=== PATIENT | male | born 1945 | race Caucasian/White ===

== ENCOUNTER 2020-03-25 11:57 | Outpatient (REF) | payer OTHER, SELFPAY ==
[2020-03-25 12:54] LABS: Hematocrit 38.4 % (42-52); Mean Corpuscular HGB Conc 31.3 g/dl (31.0-36.0); Mean Corpuscular Hemoglobin 30.6 pg (27.0-33.0); Mean Platelet Volume 9.8 fL (9.4-12.4); Platelet Count 180 X10*3/uL (160-400); Red Blood Count 3.92 X10*6/uL (4.60-5.80); Red Cell Distribution Width 12.4 % (11.0-16.0); White Blood Count 8.7 X10*3/uL (4.8-10.8)
[2020-03-25 13:32] LABS: Alanine Aminotransferase 30 U/L (0-40); Albumin Level 4.1 g/dL (3.5-5.0); Alkaline Phosphatase 64 U/L (39-117); Anion Gap 12 (12-20); Aspartate Amino Transferase 27 U/L (5-37); Bilirubin Total 0.4 mg/dL (0.0-1.0); Blood Urea Nitrogen 59 mg/dL (9-16); Calcium 9.3 mg/dL (8.4-10.2); Carbon Dioxide 24 mmol/L (22-29); Chloride 111 mmol/L (96-108); Estimated Glomerular Filt Rate 33; Glucose Random 90 mg/dL (60-115); Potassium 4.9 mmol/l (3.3-5.1); Sodium 142 mmol/L (135-145); Total Protein 7.1 g/dL (6.5-8.0)
== END 2020-03-25 11:58 | disposition home or self-care (01) ==
LOC: HO.MANLR 11:57
PROVIDERS: PCP Internal Medicine; Referring Provider Urology; Visit Provider Internal Medicine
DX: D49.4 Neoplasm of unspecified behavior of bladder (principal)
CPT/HCPCS: 36415; 80053; 85027

== ENCOUNTER 2020-04-08 11:09 | Outpatient (REF) | payer OTHER, SELFPAY ==
[2020-04-08 12:57] LABS: Hematocrit 39.2 % (42-52); Hemoglobin 12.7 g/dl (14.0-18.0); Mean Corpuscular HGB Conc 32.4 g/dl (31.0-36.0); Mean Corpuscular Hemoglobin 31.6 pg (27.0-33.0); Mean Corpuscular Volume 97.5 fL (80-98); Mean Platelet Volume 10.2 fL (9.4-12.4); Platelet Count 153 X10*3/uL (160-400); Red Blood Count 4.02 X10*6/uL (4.60-5.80); Red Cell Distribution Width 13.2 % (11.0-16.0)
[2020-04-08 13:05] LABS: Estimated Average Glucose 160 mg/dL; Hemoglobin A1c % 7.2 %
[2020-04-08 13:57] LABS: Creatinine Urine 38.53 mg/dL; Microalbum/Creatinine Ratio Ur 389.3 ug/mg cr
[2020-04-08 14:02] LABS: Alanine Aminotransferase 27 U/L (0-40); Albumin Level 4.2 g/dL (3.5-5.0); Anion Gap 10 (12-20); Aspartate Amino Transferase 21 U/L (5-37); Bilirubin Total 0.5 mg/dL (0.0-1.0); Blood Urea Nitrogen 57 mg/dL (9-16); Calcium 8.8 mg/dL (8.4-10.2); Carbon Dioxide 22 mmol/L (22-29); Chloride 114 mmol/L (96-108); Estimated Glomerular Filt Rate 34; Glucose Fasting 195 mg/dL (60-99); Potassium 4.4 mmol/l (3.3-5.1); Sodium 142 mmol/L (135-145); Triglycerides 231 mg/dL
[2020-04-08 14:03] LABS: Alkaline Phosphatase 71 U/L (39-117); Cholesterol 134 mg/dL; HDL Cholesterol 40 mg/dL; LDL Cholesterol Calculated 48 mg/dl
== END 2020-04-08 11:10 | disposition home or self-care (01) ==
LOC: HO.MANLR 11:09
PROVIDERS: PCP Internal Medicine; Referring Provider Urology; Visit Provider Internal Medicine
DX: E11.65 Type 2 diabetes mellitus with hyperglycemia (principal); D49.4 Neoplasm of unspecified behavior of bladder
CPT/HCPCS: 36415; 80053; 80061; 82043; 83036; 85027

== ENCOUNTER 2020-07-03 14:23 | Outpatient (REF) | payer OTHER, SELFPAY ==
[2020-07-03 17:39] LABS: Hematocrit 41.9 % (42-52); Hemoglobin 13.7 g/dl (14.0-18.0); Mean Corpuscular HGB Conc 32.7 g/dl (31.0-36.0); Mean Corpuscular Hemoglobin 31.8 pg (27.0-33.0); Mean Corpuscular Volume 97.2 fL (80-98); Mean Platelet Volume 11.3 fL (9.4-12.4); Platelet Count 135 X10*3/uL (160-400); Red Blood Count 4.31 X10*6/uL (4.60-5.80); Red Cell Distribution Width 12.4 % (11.0-16.0); White Blood Count 6.5 X10*3/uL (4.8-10.8)
[2020-07-03 18:28] LABS: Alanine Aminotransferase 25 U/L (0-40); Albumin Level 3.9 g/dL (3.5-5.0); Alkaline Phosphatase 78 U/L (39-117); Anion Gap 13 (12-20); Aspartate Amino Transferase 18 U/L (5-37); Bilirubin Total 0.5 mg/dL (0.0-1.0); Blood Urea Nitrogen 57 mg/dL (9-16); Calcium 8.5 mg/dL (8.4-10.2); Carbon Dioxide 22 mmol/L (22-29); Chloride 107 mmol/L (96-108); Estimated Glomerular Filt Rate 29; Glucose Random 368 mg/dL (60-115); Potassium 4.8 mmol/L (3.3-5.1); Sodium 137 mmol/L (135-145); Total Protein 6.5 g/dL (6.5-8.0)
== END 2020-07-03 14:24 | disposition home or self-care (01) ==
LOC: HO.MANLDS 14:23
PROVIDERS: PCP Internal Medicine; Visit Provider Internal Medicine
DX: D49.4 Neoplasm of unspecified behavior of bladder (principal)
CPT/HCPCS: 36415; 80053; 85027

== ENCOUNTER 2020-07-10 14:48 | Outpatient (REF) | payer OTHER, SELFPAY ==
[2020-07-10 18:18] LABS: Estimated Average Glucose 160 mg/dL; Hemoglobin A1c % 7.2 %
[2020-07-10 18:40] LABS: Creatinine Urine 38.06 mg/dL; Microalbum/Creatinine Ratio Ur 81.4 ug/mg cr
== END 2020-07-10 14:49 | disposition home or self-care (01) ==
LOC: HO.MANLDS 14:48
PROVIDERS: PCP Internal Medicine; Visit Provider Internal Medicine
DX: E11.65 Type 2 diabetes mellitus with hyperglycemia (principal)
CPT/HCPCS: 36415; 82043; 83036

== ENCOUNTER 2020-11-27 08:07 | Outpatient (REF) | payer OTHER, SELFPAY ==
[2020-11-27 11:34] LABS: Creatinine Urine 50.11 mg/dL; Microalbum/Creatinine Ratio Ur 181.6 ug/mg cr
[2020-11-27 11:35] LABS: Alanine Aminotransferase 23 U/L (0-40); Alkaline Phosphatase 76 U/L (39-117); Anion Gap 11 (12-20); Aspartate Amino Transferase 19 U/L (5-37); Bilirubin Total 0.7 mg/dL (0.0-1.0); Blood Urea Nitrogen 42 mg/dL (9-16); Calcium 8.9 mg/dL (8.4-10.2); Carbon Dioxide 23 mmol/L (22-29); Chloride 113 mmol/L (96-108); Cholesterol 125 mg/dL; Estimated Glomerular Filt Rate 31; Glucose Fasting 178 mg/dL (60-99); HDL Cholesterol 27 mg/dL; LDL Cholesterol Calculated 44 mg/dl; Potassium 4.3 mmol/L (3.3-5.1); Sodium 143 mmol/L (135-145); Total Protein 6.3 g/dL (6.5-8.0); Triglycerides 273 mg/dL
[2020-11-27 11:59] LABS: Estimated Average Glucose 143 mg/dL; Hemoglobin A1c % 6.6 %
== END 2020-11-27 08:08 | disposition home or self-care (01) ==
LOC: HO.MANLDS 08:07
PROVIDERS: PCP Internal Medicine; Visit Provider Internal Medicine
DX: E11.65 Type 2 diabetes mellitus with hyperglycemia (principal)
CPT/HCPCS: 36415; 80053; 80061; 82043; 83036

== ENCOUNTER 2021-03-03 09:14 | Outpatient (REF) | payer OTHER, SELFPAY ==
[2021-03-03 11:32] LABS: Estimated Average Glucose 166 mg/dL; Hemoglobin A1c % 7.4 %
== END 2021-03-03 09:15 | disposition home or self-care (01) ==
LOC: HO.MANLDS 09:14
PROVIDERS: PCP Internal Medicine; Visit Provider Internal Medicine
DX: E11.65 Type 2 diabetes mellitus with hyperglycemia (principal)
CPT/HCPCS: 36415; 83036

== ENCOUNTER 2021-06-13 14:02 | Outpatient (REF) | payer OTHER, SELFPAY ==
[2021-06-14 07:30] LABS: Estimated Average Glucose 157 mg/dL; Hemoglobin A1c % 7.1 %
== END 2021-06-13 14:03 | disposition home or self-care (01) ==
LOC: HO.MANLDS 14:02
PROVIDERS: PCP Internal Medicine; Visit Provider Internal Medicine
DX: E11.65 Type 2 diabetes mellitus with hyperglycemia (principal)
CPT/HCPCS: 36415; 83036

== ENCOUNTER 2021-11-24 09:44 | Outpatient (REF) | payer OTHER, SELFPAY ==
[2021-11-24 11:15] LABS: Estimated Average Glucose 148 mg/dL; Hemoglobin A1c % 6.8 %
[2021-11-24 12:11] LABS: Alanine Aminotransferase 30 U/L (0-40); Alkaline Phosphatase 74 U/L (39-117); Anion Gap 13 (12-20); Aspartate Amino Transferase 24 U/L (5-37); Bilirubin Total 0.6 mg/dL (0.0-1.0); Blood Urea Nitrogen 53 mg/dL (9-16); Carbon Dioxide 21 mmol/L (22-29); Chloride 113 mmol/L (96-108); Cholesterol 130 mg/dL; Estimated Glomerular Filt Rate 27; Glucose Random 190 mg/dL (60-115); HDL Cholesterol 30 mg/dL; LDL Cholesterol Calculated 40 mg/dl; Potassium 5.1 mmol/L (3.3-5.1); Sodium 142 mmol/L (135-145); Total Protein 6.4 g/dL (6.5-8.0); Triglycerides 300 mg/dL
[2021-11-24 12:25] LABS: Microalbum/Creatinine Ratio Ur 124.4 ug/mg cr
== END 2021-11-24 09:45 | disposition home or self-care (01) ==
LOC: HO.MANLDS 09:44
PROVIDERS: Visit Provider Internal Medicine
DX: E11.65 Type 2 diabetes mellitus with hyperglycemia (principal)
CPT/HCPCS: 36415; 80053; 80061; 82043; 83036

== ENCOUNTER 2022-02-18 11:40 | Outpatient (REF) | payer OTHER, SELFPAY ==
[2022-02-18 16:09] LABS: Estimated Average Glucose 177 mg/dL; Hemoglobin A1c % 7.8 %
== END 2022-02-18 11:41 | disposition home or self-care (01) ==
LOC: HO.MANLDS 11:40
PROVIDERS: Visit Provider Internal Medicine
DX: E11.65 Type 2 diabetes mellitus with hyperglycemia (principal)
CPT/HCPCS: 36415; 83036

== ENCOUNTER 2022-08-03 09:50 | Outpatient (REF) | payer OTHER, SELFPAY ==
[2022-08-03 12:24] LABS: Creatinine Urine 60.96 mg/dL; Microalbum/Creatinine Ratio Ur 111.5 ug/mg cr
[2022-08-03 12:34] LABS: Alanine Aminotransferase 20 U/L (0-40); Albumin Level 3.8 g/dL (3.5-5.0); Alkaline Phosphatase 53 U/L (39-117); Anion Gap 11 (12-20); Aspartate Amino Transferase 20 U/L (5-37); Bilirubin Total 0.6 mg/dL (0.0-1.0); Blood Urea Nitrogen 49 mg/dL (9-16); Carbon Dioxide 22 mmol/L (22-29); Chloride 112 mmol/L (96-108); Cholesterol 240 mg/dL; Estimated Glomerular Filt Rate 30; Glucose Fasting 233 mg/dL (60-99); HDL Cholesterol 31 mg/dL; Potassium 4.4 mmol/L (3.3-5.1); Sodium 141 mmol/L (135-145); Total Protein 6.1 g/dL (6.5-8.0); Triglycerides 495 mg/dL
[2022-08-03 12:46] LABS: Estimated Average Glucose 180 mg/dL; Hemoglobin A1c % 7.9 %
== END 2022-08-03 09:51 | disposition home or self-care (01) ==
LOC: HO.MANLDS 09:50
PROVIDERS: Visit Provider Internal Medicine
DX: E11.65 Type 2 diabetes mellitus with hyperglycemia (principal)
CPT/HCPCS: 36415; 80053; 80061; 82043; 83036

== ENCOUNTER 2023-02-01 11:11 | Outpatient (REF) | payer MEDICARE, SELFPAY ==
[2023-02-01 13:32] LABS: Estimated Average Glucose 163 mg/dL; Hemoglobin A1c % 7.3 % (<6.0)
[2023-02-01 13:58] LABS: Alanine Aminotransferase 51 U/L (0-40); Albumin Level 3.9 g/dL (3.5-5.0); Alkaline Phosphatase 54 U/L (39-117); Anion Gap 14 (12-20); Aspartate Amino Transferase 33 U/L (5-37); Bilirubin Total 0.6 mg/dL (0.0-1.0); Blood Urea Nitrogen 50 mg/dL (9-16); Calcium 8.8 mg/dL (8.4-10.2); Carbon Dioxide 17 mmol/L (22-29); Chloride 112 mmol/L (96-108); Cholesterol 119 mg/dL (<200); Estimated Glomerular Filt Rate 28; Glucose Random 272 mg/dL (60-115); HDL Cholesterol 24 mg/dL (>40); LDL Cholesterol Calculated 42 mg/dL (<100); Potassium 4.4 mmol/L (3.3-5.1); Sodium 139 mmol/L (135-145); Total Protein 6.7 g/dL (6.5-8.0); Triglycerides 269 mg/dL (<150)
== END 2023-02-01 11:12 | disposition home or self-care (01) ==
LOC: HO.MANLDS 11:11
PROVIDERS: Visit Provider Internal Medicine
DX: E11.65 Type 2 diabetes mellitus with hyperglycemia (principal)
CPT/HCPCS: 36415; 80053; 80061; 83036

== ENCOUNTER 2023-05-04 11:01 | Outpatient (REF) | payer MEDICARE, SELFPAY ==
[2023-05-04 14:52] LABS: MANUAL DIFF FLAG NO
[2023-05-04 15:04] LABS: Basophils Absolute Auto 0.1 X10*3/uL (0.0-0.2); Eosinophils Absolute Auto 0.1 X10*3/uL (0.0-0.4); Eosinophils Percent Auto 1.5 % (0-4); Hematocrit 45.1 % (42.0-52.0); Hemoglobin 14.4 g/dl (14.0-18.0); Imm Gran Abs Auto 0.09 X10*3/uL (0.00-0.03); Imm Gran Pct Auto 1.3 % (0.0-0.4); Lymphocytes Absolute Auto 1.5 X10*3/uL (1.2-4.9); Lymphocytes Percent Auto 21.5 % (20-40); Mean Corpuscular HGB Conc 31.9 g/dl (31.0-36.0); Mean Corpuscular Hemoglobin 31.6 pg (27.0-33.0); Mean Corpuscular Volume 98.9 fL (80.0-98.0); Mean Platelet Volume 10.1 fL (9.4-12.4); Monocytes Absolute Auto 0.9 X10*3/uL (0.1-1.2); Monocytes Percent Auto 12.9 % (2-11); Neutrophils Absolute Auto 4.2 x10*3/uL (2.0-8.3); Neutrophils Percent Auto 61.8 % (45-73); Platelet Count 130 X10*3/uL (160-400); Red Blood Count 4.56 X10*6/uL (4.60-5.80); Red Cell Distribution Width 12.3 % (11.0-16.0); White Blood Count 6.7 X10*3/uL (4.8-10.8)
[2023-05-04 15:18] LABS: Estimated Average Glucose 160 mg/dL; Hemoglobin A1c % 7.2 % (<6.0)
[2023-05-04 15:22] LABS: Alanine Aminotransferase 28 U/L (0-40); Albumin Level 3.7 g/dL (3.5-5.0); Alkaline Phosphatase 56 U/L (39-117); Anion Gap 12 (12-20); Aspartate Amino Transferase 23 U/L (5-37); Bilirubin Total 0.6 mg/dL (0.0-1.0); Blood Urea Nitrogen 47 mg/dL (9-16); Calcium 9.7 mg/dL (8.4-10.2); Carbon Dioxide 23 mmol/L (22-29); Chloride 108 mmol/L (96-108); Cholesterol 144 mg/dL (<200); Estimated Glomerular Filt Rate 28; Glucose Random 266 mg/dL (60-115); HDL Cholesterol 28 mg/dL (>40); LDL Cholesterol Calculated 51 mg/dL (<100); Potassium 4.4 mmol/L (3.3-5.1); Sodium 139 mmol/L (135-145); Total Protein 6.4 g/dL (6.5-8.0); Triglycerides 325 mg/dL (<150)
[2023-05-04 15:50] LABS: Creatinine Urine 49.69 mg/dL; Microalbum/Creatinine Ratio Ur 154.9 ug/mg cr (<30)
== END 2023-05-04 11:02 | disposition home or self-care (01) ==
LOC: HO.MANLDS 11:01
PROVIDERS: Visit Provider Internal Medicine
DX: E11.65 Type 2 diabetes mellitus with hyperglycemia (principal)
CPT/HCPCS: 36415; 80053; 80061; 82043; 82570; 83036; 85025

== ENCOUNTER 2023-08-03 11:36 | Outpatient (REF) | payer MEDICARE, SELFPAY ==
[2023-08-03 14:26] LABS: Alanine Aminotransferase 29 U/L (0-40); Albumin Level 3.8 g/dL (3.5-5.0); Alkaline Phosphatase 54 U/L (39-117); Anion Gap 13 (12-20); Aspartate Amino Transferase 20 U/L (5-37); Bilirubin Total 0.5 mg/dL (0.0-1.0); Blood Urea Nitrogen 62 mg/dL (9-16); Calcium 8.9 mg/dL (8.4-10.2); Carbon Dioxide 19 mmol/L (22-29); Chloride 111 mmol/L (96-108); Estimated Glomerular Filt Rate 28; Glucose Random 319 mg/dL (60-115); Potassium 4.4 mmol/L (3.3-5.1); Sodium 139 mmol/L (135-145); Total Protein 6.4 g/dL (6.5-8.0)
[2023-08-03 15:10] LABS: Estimated Average Glucose 177 mg/dL; Hemoglobin A1c % 7.8 % (<6.0)
== END 2023-08-03 11:37 | disposition home or self-care (01) ==
LOC: HO.MANLDS 11:36
PROVIDERS: Visit Provider Internal Medicine
DX: E11.65 Type 2 diabetes mellitus with hyperglycemia (principal)
CPT/HCPCS: 36415; 80053; 83036

== ENCOUNTER 2023-11-15 10:39 | Outpatient (REF) | payer MEDICARE, SELFPAY ==
[2023-11-15 13:45] LABS: Estimated Average Glucose 160 mg/dL; Hemoglobin A1c % 7.2 % (<6.0)
== END 2023-11-15 10:40 | disposition home or self-care (01) ==
LOC: HO.MANLDS 10:39
PROVIDERS: Visit Provider Internal Medicine
DX: E11.65 Type 2 diabetes mellitus with hyperglycemia (principal)
CPT/HCPCS: 36415; 83036

== ENCOUNTER 2024-02-29 14:17 | Outpatient (REF) | payer MEDICARE, SELFPAY ==
[2024-02-29 14:25] LABS: MANUAL DIFF FLAG NO
[2024-02-29 14:54] LABS: Basophils Absolute Auto 0.1 X10*3/uL (0.0-0.2); Eosinophils Absolute Auto 0.1 X10*3/uL (0.0-0.4); Eosinophils Percent Auto 1.5 % (0-4); Hematocrit 44.1 % (42.0-52.0); Hemoglobin 14.5 g/dl (14.0-18.0); Imm Gran Abs Auto 0.12 X10*3/uL (0.00-0.03); Imm Gran Pct Auto 1.3 % (0.0-0.4); Lymphocytes Absolute Auto 1.7 X10*3/uL (1.2-4.9); Lymphocytes Percent Auto 19.1 % (20-40); Mean Corpuscular HGB Conc 32.9 g/dl (31.0-36.0); Mean Corpuscular Hemoglobin 31.9 pg (27.0-33.0); Mean Corpuscular Volume 97.1 fL (80.0-98.0); Mean Platelet Volume 9.9 fL (9.4-12.4); Monocytes Absolute Auto 0.9 X10*3/uL (0.1-1.2); Monocytes Percent Auto 9.7 % (2-11); Neutrophils Percent Auto 67.4 % (45-73); Platelet Count 140 X10*3/uL (160-400); Red Blood Count 4.54 X10*6/uL (4.60-5.80); Red Cell Distribution Width 12.2 % (11.0-16.0); White Blood Count 8.9 X10*3/uL (4.8-10.8)
[2024-02-29 14:57] LABS: Alanine Aminotransferase 61 U/L (0-40); Albumin Level 3.7 g/dL (3.5-5.0); Alkaline Phosphatase 54 U/L (39-117); Anion Gap 11 (12-20); Aspartate Amino Transferase 49 U/L (5-37); Bilirubin Total 0.4 mg/dL (0.0-1.0); Blood Urea Nitrogen 46 mg/dL (9-16); Calcium 9.1 mg/dL (8.4-10.2); Carbon Dioxide 22 mmol/L (22-29); Chloride 110 mmol/L (96-108); Cholesterol 124 mg/dL (<200); Estimated Glomerular Filt Rate 30; Glucose Random 161 mg/dL (60-115); HDL Cholesterol 28 mg/dL (>40); LDL Cholesterol Calculated 44 mg/dL (<100); Potassium 4.1 mmol/L (3.3-5.1); Sodium 139 mmol/L (135-145); Total Protein 6.3 g/dL (6.5-8.0); Triglycerides 261 mg/dL (<150)
[2024-02-29 15:15] LABS: Prostate Specific Antigen < 0.10 ng/mL (<0.05-4.0)
== END 2024-02-29 14:18 | disposition home or self-care (01) ==
LOC: HO.MANLNP 14:17
PROVIDERS: Visit Provider Internal Medicine
DX: Z00.00 Encounter for general adult medical examination without abnormal findings (principal); Z12.5 Encounter for screening for malignant neoplasm of prostate; Z13.6 Encounter for screening for cardiovascular disorders
CPT/HCPCS: 36415; 80053; 80061; 84153; 85025

== ENCOUNTER 2024-06-02 11:20 | Outpatient (REF) | payer MEDICARE, SELFPAY ==
--- OUTSIDE RECORDS SUMMARY | 2024-06-02 13:30 | XMS_ITS | Data Portability ---
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 REVIEW OF PRIOR EXTERNAL NOTES/RESULTS, ORDERING OF TEST(S) CATEGORY 2. 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) MDM MODERATE MUST MEET 2 OUT OF 3 ELEMENTS: PROBLEMS, DATA OR RISK ELEMENT 1: PROBLEMS ADDRESSED 1 OR MORE CHRONIC ILLNESS WITH EXACERBATION OR 2 OR MORE STABLE CHRONIC ILLNESSES OR 1 UNDIAGNOSED NEW PROBLEM OR 1 ACUTE ILLNESS W/SYMPTOMS OR 1 ACUTE COMPLICATED INJURY ELEMENT 2: DATA MUST MEET 1 OF 3 CATEGORIES CATEGORY 1: REVIEW OF PRIOR EXTERNAL NOTES, REVIEW OF RESULTS, ORDERING OF EACH TEST, ASSESSMENT REQUIRING INDEPENDENT HISTORIAN OR CATEGORY 2: INDEPENDENT INTERPRETATION OF TESTS BY ANOTHER PHYSICIAN OR SPECIALIST OR CATEGORY 3: DISCUSSION OF MGT OR TEST INTERPRETATION W/EXTERNAL PHYSICIAN OR SPECIALIST ELEMENT 3: RISK RISK OF COMPLICATIONS AND/OR MORBIDITY OR MORTALITY OF PATIENT MANAGEMENT PROVIDER MUST THOROUGHLY DOCUMENT EACH ELEMENT THAT IS COVERED Not available 05/07/2023 10:15:28 08/09/2023 08/09/2023 [id number] [place] [id number]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) MDM MODERATE MUST MEET 2 OUT OF 3 ELEMENTS: PROBLEMS, DATA OR RISK ELEMENT 1: PROBLEMS ADDRESSED 1 OR MORE CHRONIC ILLNESS WITH EXACERBATION OR 2 OR MORE STABLE CHRONIC ILLNESSES OR 1 UNDIAGNOSED NEW PROBLEM OR 1 ACUTE ILLNESS W/SYMPTOMS OR 1 ACUTE COMPLICATED INJURY ELEMENT 2: DATA MUST MEET 1 OF 3 CATEGORIES CATEGORY 1: REVIEW OF PRIOR EXTERNAL NOTES, REVIEW OF RESULTS, ORDERING OF EACH TEST, ASSESSMENT REQUIRING INDEPENDENT HISTORIAN OR CATEGORY 2: INDEPENDENT INTERPRETATION OF TESTS BY ANOTHER PHYSICIAN OR SPECIALIST OR CATEGORY 3: DISCUSSION OF MGT OR TEST INTERPRETATION W/EXTERNAL PHYSICIAN OR SPECIALIST ELEMENT 3: RISK RISK OF COMPLICATIONS AND/OR MORBIDITY OR MORTALITY OF PATIENT MANAGEMENT PROVIDER MUST THOROUGHLY DOCUMENT EACH ELEMENT THAT IS COVERED Not available 08/09/2023 15:28:35 11/17/2023 11/17/2023 Patient presente d to office today for their Medicare Annual Wellness Visit. Education was provided on healthy nutrition, including a diet rich in fruits and vegetables, minimizing simple carbohydrates, salt, and saturated fats. Encouraged regular cardiovascular exercise such as walking at least 30 minutes daily, 5 times per week. Emphasized preventive health measures and educated pt on fall prevention and community-based lifestyle interventions to help reduce health risks and promote healthy living. 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) MDM MODERATE MUST MEET 2 OUT OF 3 ELEMENTS: PROBLEMS, DATA OR RISK ELEMENT 1: PROBLEMS ADDRESSED 1 OR MORE CHRONIC ILLNESS WITH EXACERBATION OR 2 OR MORE STABLE CHRONIC ILLNESSES OR 1 UNDIAGNOSED NEW PROBLEM OR 1 ACUTE ILLNESS W/SYMPTOMS OR 1 ACUTE COMPLICATED INJURY ELEMENT 2: DATA MUST MEET 1 OF 3 CATEGORIES CATEGORY 1: REVIEW OF PRIOR EXTERNAL NOTES, REVIEW OF RESULTS, ORDERING OF EACH TEST, ASSESSMENT REQUIRING INDEPENDENT HISTORIAN OR CATEGORY 2: INDEPENDENT INTERPRETATION OF TESTS BY ANOTHER PHYSICIAN OR SPECIALIST OR CATEGORY 3: DISCUSSION OF MGT OR TEST INTERPRETATION W/EXTERNAL PHYSICIAN OR SPECIALIST ELEMENT 3: RISK RISK OF COMPLICATIONS AND/OR MORBIDITY OR MORTALITY OF PATIENT MANAGEMENT PROVIDER MUST THOROUGHLY DOCUMENT EACH ELEMENT THAT IS COVERED Not available 03/06/2024 11:57:29 Plan of Treatment Reminders Order Date Submit Date Provider Last Modified By Organization Details Last Modified Time Details Appointments FOLLOW UP 15 2024 11:45A M DR JAMIL Not available Not available Not available Lab HbA1c (hemoglob in A1c), blood 2023 024 [facility], [address] [place] [address], [id number], 03/06/2024 12:05:06 lipid panel, blood 2023 024 [facility], [address] [place] [address], [id number], 03/01/2024 11:31:02 CMP, serum or plasma 2023 024 [facility], [address] [place] [address], [id number], 03/01/2024 11:31:02 CBC w/ auto diff 2023 024 [facility], [address] [place] [address], [id number], 03/01/2024 11:31:02 PSA, serum or plasma 2023 024 [facility], [address] [place] [address], [id number], 03/01/2024 11:31:02 HbA1c (hemoglob in A1c), blood 2022 024 [facility], [address] [place] [address], [id number], 05/07/2023 10:18:05 CMP, serum or plasma 2022 024 [facility], [address] [place] [address], [id number], 05/07/2023 10:18:05 HbA1c (hemoglob in A1c), blood 2022 023 [facility], [address] [place] [address], [id number], 05/05/2023 11:18:24 CMP, serum or plasma 2022 023 [facility], [address] [place] [address], [place], [id number], 01/25/2023 15:54:28 Referral None recorded. Procedures None recorded. Surgeries None recorded. Imaging None recorded. Medication Orders bupropion HCl XL 150 mg 24 hr tablet, extended release 2023 024 [facility], [facility], [place], [address], 11/17/2023 13:36:15 Patient TargetsNo targets recorded. Patient Instructions Encounter Date Encounter Id Patient Instructions Last Modified By Organization Details Last Modified Time 11/17/2023 [id number] type 2 diabetes: care instructions Not available 11/17/2023 12:19:12 learning about mood disorders Not available 11/17/2023 12:14:32 Discussed and explained advance directives such as standard forms to the {{patient* caregi elliott patient and caregiver}}. Face to face discussion lasted for a duration of _6__ minutes. Not available 11/17/2023 12:13:21 03/06/2024 [id number] leg and ankle edema: care instructions Not available 03/06/2024 11:59:15 high blood pressure: care instructions Not available 03/06/2024 11:59:14 learning about high blood pressure Not available 03/06/2024 11:59:15 Reason for Referral None Reported. Results Created Date Observation Date Name Description Value Unit Range Abnormal Flag Note LastModifiedBy Organization Detail LastModifiedTime 02/16/20 24 02/16/2024 XR, chest , 2 view No observ ation record ed. [email or web address] [address], [address], 02/16/2024 15:59:27 Result Notes None recorded. 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 Ricardo Jamil, DO [address] [place] [address], [phone], [facility] 8 13:48:32 Divertic ulitis of sigmoid colon 443356369 Active 2017 Ricardo Jamil DO [address] [place] [address], [address], [facility] 8 13:56:11 Abdomina l pain 04478064 Active 2018 Ricardo Jamil, DO [address] [place] [address], [address], [facility] 9 14:58:02 Recurren t urinary tract infectio n 934808576 Active 2018 Ricardo Jamil DO [address] [place] [address], [phone], [facility] 9 15:39:21 Chronic kidney disease 793518280 Active 2019 Ricardo Jamil, DO [address] [place] [address], [address], [facility] 0 14:21:49 Hypercho lesterol emia 39799806 Active 2020 Ricardo Jamil DO [address] [place] [address], [phone], [facility] 1 10:13:57 Edema of lower extremit y 058440361 Active 2021 Ricardo Jamil, DO [address] [place] [address], [address], [facility] 2 16:27:04 Type 2 diabetes mellitus 68466985 Active 2017 Bernarda briggs [facility] 8 15:10:56 Essentia l hyperten bell 25163296 Active 2017 Bernarda briggs [facility] 8 15:11:05 Tobacco user 246381159 Active 2017 [facility] 15:11:41 Pleural plaque 760769465 Active [address] 2-2-16 [facility] 8 15:12:54 Solitary nodule of lung 658056234 Active 2017 [facility] 15:14:11 Cellulit is 939183883 Active 2017 Left Toe [facility] 8 15:14:42 Diabetic peripher al neuropat hy 566240362 Active 2017 [facility] 15:17:09 COVID-19 387870276 Active 2021 Ricardo Jamil, [address], [address], [facility] 2 14:20:58 Depressi ve disorder 58233053 Active 2022 Ricardo Jamil, [address], [address], [facility] 3 14:00:08 Malignan t neoplasm of urinary bladder 209262109 Active 2022 Ricardo Jamil, [address], [address], [facility] 3 14:00:11 Herpes labialis 5999026 Active 2023 BRY YUAN [address] [place] [address], [address], [facility] 4 10:02:21 Acute bronchit is 22608970 Active 2023 BRY YUAN [address] [place] [address], [address], [facility] 4 12:29:00 Notes:Some problems listed i n Documents: #[id number], #[id number] could not be added to this patient's chart. Please review these documents and add these problems to the patient's chart manually as needed. Problem Notes None recorded. Procedures Surgical History Date Name Laterality Status Provider Name and Address Organization Details Recorded Time 9 Colonoscopy completed Bernarda Garcia [facility] 05/21/2020 15:06:58 Imaging Results Imaging Date Name Status LastModified by Organiz ation Details LastModified Time 02/16/2024 XR, chest, 2 view completed [email or web address] [address], [address], 02/16/2024 15:59:27 Procedure Notes None recorded. Medical Equipment None Reported. Allergies Allergen ID Allergen Name Allergen Category Reaction Reaction Severity Criticality Documentation Date Start Date Code Code System Note Provider Name and Address Organization Details Recorded Time 241 Invokana medicatio n other severe Not available 01/18/20182017 99476 64 RxNorm Ricardo Jamil, [address] [place], [address], [facility] 8 14:36:32 2970 mirtazapi ne medicatio n other severe Not available 07/11/2018 52904 RxNorm Ricardo EmiliaAbdon BoazDO hebert [address] [place], [address], [facility] 9 13:40:32 83 Lipitor medicatio n diarrhea Not available Not available 06/02/2017 69352 5 RxNorm Bernarda briggs [facility] 8 14:55:43 85 Substance with sulfonami de structure and antibacte rial mechanism of action (substanc e) medicatio n Not available Not available Not available 06/02/2017 31985 8003 SNOMED Bernarda briggs [facility] 8 15:10:17 Medications Name Sig Start Date Stop Date Status Note LastModified by Organization Details LastModified Time Prescriptio n - Prior Authorizati on Request 11/16 completed Not Available Not Available Not Available Santyl 250 unit/gram topical ointment 01/03 completed Not Available Not Available Not Available amoxicillin 500 mg capsule 07/09 completed Not Available Not Available Not Available latanoprost 0.005 % eye drops 04/18 completed Not Available Not Available Not Available atorvastati n 40 mg tablet 07/09 completed Not Available Not Available Not Available metformin 500 mg tablet Take 1 tablet twice a day by oral route. 08/24 completed Not Available Not Available Not Available prednisone 10 mg tablet TAKE 2 TABLETS EVERY DAY WITH MEALS 12/14 completed Not Available Not Available Not Available oxybutynin chloride ER 15 mg tablet,exte nded release 24 hr Take 1 tablet every day by oral route for 90 days. 04/22 completed Not Available Not Available Not Available loperamide 2 mg capsule PRN 08/05 completed Not Available Not Available Not Available cefpodoxime 200 mg tablet 08/24 completed Not Available Not Available Not Available azithromyci n 250 mg tablet TAKE 2 TABLETS ON DAY 1 THEN 1 TABLET DAILY FOR 4 DAYS 03/06 completed Not Available Not Available Not Available valacyclovi r 1 gram tablet TAKE 1 TABLET EVERY 12 HOURS FOR 7 DAYS active Not Available Not Available No t Available fluconazole 200 mg tablet 06/01 completed Not Available Not Available Not Available phenazopyri dine 200 mg tablet 08/09 completed Not Available Not Available Not Available prednisone 20 mg tablet take 1 tablet by mouth once a day 12/14 completed Not Available Not Available Not Available prednisone 5 mg tablet Take 1 tablet every day by oral route for 30 days. 10/22 completed Not Available Not Available Not Available metronidazo le 250 mg tablet Take 1 tablet 3 times a day by oral route for 10 days. 04/13 completed Not Available Not Available Not Available moxifloxaci n 400 mg tablet Take 1 tablet every day by oral route for 10 days. 11/26 completed Not Available Not Available Not Available metronidazo le 500 mg tablet Take 1 tablet every 8 hours by oral route for 10 days. 04/22 completed Not Available Not Available Not Available ciprofloxac in 250 mg tablet 07/09 completed Not Available Not Available Not Available valacyclovi r 500 mg tablet Take 1 tablet 3 times a day by oral route for 5 days. 10/22 completed Not Available Not Available Not Available ciprofloxac in 500 mg tablet Take 1 tablet every 12 hours by oral route for 10 days. 05/21 completed Not Available Not Available Not Available tramadol 50 mg tablet 10/22 completed Not Available Not Available Not Available ketorolac 0.5 % eye drops INSTILL 1 DROP IN THE RIGHT EYE THREE TIMES DAILY FOR 3 WEEKS FOLLOWING SURGERY ON 08-19-2003/07 completed Not Available Not Available Not Available hydromorpho ne 2 mg tablet 10/22 completed Not Available Not Available Not Available prednisolon e acetate 1 % eye drops,suspe nsion INSTILL 1 DROP INTO RIGHT EYE THREE TIMES DAILY FOR 3 WEEKS FOLLOWING SURGERY ON 08/19/2003/07 completed Not Available Not Available Not Available tamsulosin 0.4 mg capsule Take 1 capsule every day by oral route for 90 days. 08/05 completed Not Available Not Available Not Available sodium bicarbonate 650 mg tablet Take 1 tablet twice a day by oral route for 30 days. 08/08 completed Not Available Not Available Not Available phenazopyri dine 100 mg tablet 12/14 completed Not Available Not Available Not Available cephalexin 500 mg capsule 04/18 completed Not Available Not Available Not Available metformin 1,000 mg tablet take 1 tablet by mouth twice a day 04/18 completed Not Available Not Available Not Available lisinopril 10 mg tablet Take 1 tablet every day by oral route for 90 days. 06/01 completed Not Available Not Available Not Available docusate sodium 100 mg capsule 03/12 completed Not Available Not Available Not Available Senokot 8.6 mg tablet PRN 08/08 completed Not Available Not Available Not Available bisacodyl 5 mg tablet,merary yed release 04/18 completed Not Available Not Available Not Available mirtazapine 15 mg tablet Take 1 tablet every day by oral route for 30 days. 07/11 completed Not Available Not Available Not Available levofloxaci n 500 mg tablet Take 1 tablet every 24 hours by oral route for 10 days. 04/13 completed Not Available Not Available Not Available methylpredn isolone 4 mg tablets in a dose pack TAKE DIRECTED active Not Available Not Available No t Available timolol maleate 0.5 % eye drops INSTILL 1 DROP INTO BOTH EYES IN THE MORNING. active Not Available Not Available No t Available timolol maleate 0.5 % eye gel forming solution 03/07 completed Not Available Not Available Not Available cefdinir 300 mg capsule 04/18 completed Not Available Not Available Not Available doxycycline hyclate 100 mg tablet TAKE 1 TABLET BY MOUTH TWICE DAILY FOR 10 DAYS 11/26 completed Not Available Not Available Not Available amoxicillin 500 mg-potjenniferu m clavulanate 125 mg tablet 07/09 completed Not Available Not Available Not Available oxycodone 5 mg tablet PRN 05/21 completed Not Available Not Available Not Available enoxaparin 40 mg/0.4 mL subcutaneou s syringe 04/18 completed Not Available Not Available Not Available rosuvastati n 10 mg tablet TAKE 1 TABLET DAILY active Not Available Not Available No t Available bupropion HCl XL 300 mg 24 hr tablet, extended release 12/28 completed Not Available Not Available Not Available bupropion HCl XL 150 mg 24 hr tablet, extended release TAKE 1 TABLET DAILY 2023 active Not Available Not Available Not Avai lable NovoFine 30 30 gauge x 1/3 needle 04/13 completed Not Available Not Available Not Available GaviLyte-G 236 gram-22.74 gram-6.74 gram-5.86 gram oral solution 04/18 completed Not Available Not Available Not Available OneTouch Verio test strips USE AND DISCARD 1 TEST STRIP VIA METER TWICE A DAY 2023 active Not Available Not Available Not Avai lable Invokana 300 mg tablet Take 1 tablet every day by oral route for 90 days. 01/03 completed Not Available Not Available Not Available Humulin 70/30 U-100 Insulin KwikPen 100 unit/mL subcutaneou s 50 units in AM60 units in PM 04/08 completed Not Available Not Available Not Available Trulicity 1.5 mg/0.5 mL subcutaneou s pen injector INJECT THE CONTENTS OF 1 PEN SUBCUTANE OUSLY ONCE WEEKLY IN [facility] 08/05 completed Not Available Not Available Not Available Trulicity 0.75 mg/0.5 mL subcutaneou s pen injector Inject 0.5 mL every week by subcutane ous route for 30 days. 03/12 completed Not Available Not Available Not Available Basaglar KwikPen U-100 Insulin 100 unit/mL (3 mL) subcutaneou s INJECT 50 UNITS SUBCUTANE OUSLY TWO TIMES A DAY active Not Available Not Available No t Available Deanaglmarcia KwikPen U-100 Insulin 60 units in the morning 11/26 completed Not Available Not Available Not Available BD Ultra-Fine Micro Pen Needle 32 gauge x 1/4 USE AND DISCARD 1 PEN NEEDLE TWO TIMES A DAY DIRECTED active Not Available Not Available No t Available Fiasp FlexTouch U-100 Insulin 100 unit/mL (3 mL) subcutaneou s pen active Not Available Not Available Not Available Admelog SoloStar U-100 Insulin lispro 100 unit/mL subcutaneou s pen INJECT 30 UNITS PER MEAL PLUS 0-15 UNITS PER SLIDINGSC FERNANDO NEEDED FOR CORRECTIO N active Not Available Not Available No t Available Paxlovid 300 mg (150 mg x 2)-100 mg tablets in a dose pack Take 1 dose pk by oral route as directed for 5 days. 08/08 completed Not Available Not Available Not Available Paxlovid 150 mg-100 mg tablets in a dose pack (Renal Dose) TK 1 NIRMATREL VIR T AND 1 RITONAVIR T TOGETHER PO BID FOR 5 DAYS 08/08 completed Not Available Not Available Not Available FreeStyle Ba 3 [place] USE DIRECTED active Not Available Not Available No t Available FreeStyle Ba 3 Plus Sensor device USE DIRECTED TO CONTINOUS LY MONITOR BLOOD GLUCOSE active Not Available Not Available No t Available Vitals Date Recorded Body height Body mass index (BMI) Body weight Heart rate Respiratory rate Oxygen saturation Oxygen saturation in Arterial blood by Pulse oximetry Systolic blood pressure Diastolic blood pressure Provider Name and Address Organization Details Last Updated DateTime 4 193.04 cm 31.6 kg/m2 943012. 02 g 86 /min 16 /min 95 % 95 % 142 mm[Hg] 84 mm[Hg] [facility] 4 15:11:27 Date Recorded Body height Body mass index (BMI) Body weight Heart rate Oxygen saturation Oxygen saturation in Arterial blood by Pulse oximetry Systolic blood pressure Diastolic blood pressure Provider Name and Address Organization Details Last Updated DateTime 4 193.04 cm 31.8 kg/m2 760291. 61 g 66 /min 98 % 98 % 128 mm[Hg] 76 mm[Hg] Rodo Huynh [facility] 4 11:40:53 Date Recorded Body height Body mass index (BMI) Body weight Heart rate Oxygen saturation Oxygen saturation in Arterial blood by Pulse oximetry Systolic blood pressure Diastolic blood pressure Provider Name and Address Organization Details Last Updated DateTime 4 193.04 cm 30.7 kg/m2 333070. 28 g 77 /min 98 % 98 % 144 mm[Hg] 80 mm[Hg] Rodo Huynh [facility] 4 11:30:29 Social History Question Answer Notes LastModified by Organizat ion Details LastModified Time Tobacco Smoking Status Current Every Day Smoker Ricardo Jamil, DO [address] [place] [address], [place], [address], [facility] 11/26/2021 15:47:12 What Was The Date Of Your Most Recent Tobacco Screening? 03/06/2024 Information not available 03/06/2024 How Much Tobacco Do You Smoke? 1 PPD Information not available 08/09/2023 How Many Years Have You Smoked Tobacco? 60 [id number] Information not available 02/06/2020 Do You Or Have You Ever Used Any Other Forms Of Tobacco Or Nicotine? No Information not available 11/26/2021 Sex: Unknown Functional Status None recorded. Mental Status None recorded. Family History Nothing Reported. Medical History Condition Response Coronary Artery Disease N Other N Gout N Kidney Stones N Blood Diseases N Breast Cancer N Blood Transfusion N Lung Disease N Depression N COPD N Defects or Inherited Disease N Anxiety Disorder N Muscle, Joint, or Bone Problems N Obesity N Vision or Eye Problems N Arthritis N Polyps N Infertility N Mental Disorder N Cancer Y Varicosities N Stroke N Endometriosis N Bladder or Kidney Problems Y High Cholesterol N Liver Disease N Headaches N Fibromyalgia N Kidney Disease N Allergies/Hayfever N Heart Problems N Hospitalizations N Thyroid Problems N GI Problems N Skin Problems Y Eating Disorder N Anemia N MRSA exposure N Constipation N Mental Illness N Ovarian Cancer N Diabetes Y Seizures/Epilepsy N Tuberculosis N Congestive Heart Failure (CHF) N Eczema N Diverticulitis N Abuse/Domestic Violence N Asthma N Reflux/GERD N Hepatitis N Heart Disease N Pulmonary Embolism N Hypertension N Osteoporosis N Chicken Pox N Autism Spectrum Disorder (ASD) N Immunizations Vaccine Type Date Status Note Provider Nam e and Address Organization Details Recorded Time SARS-COV-2 (COVID-19) vaccine, UNSPECIFIED 1 completed Ricardo EmiliaAbdon Jamil, [address] [facility], [place], [address], [facility] 07/08/2020 13:57:16 Past Encounters Encounter ID Performer Location Encounter Start Date Encounter Closed Date Diagnosis/Indication Diagnosis SNOMED-CT Code Diagnosis ICD10 Code Diagnosis Note [id number] July [facility] [address] [facility],[place] [address] 07/09/2017 10:33:15 07/09/2017 11:48:30 Type 2 diabetes mellitus 43335252 E11.42 stable, nearly at goal- continue to monitor diet/exerc ise reinforced Essential hypertension 83986140 I10 stable on current regimen- continue Chronic low back pain 27 7209913 M54.5 with b/l leg aching Increased frequency of urination 170203682 R35.0 order urinalysis + cx r/o infection - hand written order give to pt Impotence 844785832 N52. 9 order PSA - hand written order given to pt Tobacco user 632445596 Z 72.0 not ready to quit Vertigo 715275329 R42 with progressiv e hearing loss for past 40 years [id number] July [facility] [address] [facility],[place] [address] 10/13/2017 10:41:19 10/13/2017 11:38:12 Type 2 diabetes mellitus 85970742 E11.42 admits noncomplia nt with diet diet/exerc ise reinforced unclear from chart why he isn't on metformin pt not sure either, thinks maybe it didn't work. not really sure will have f/u with [facility] Essential hypertension 67380356 I10 stable on current regimen- continue Hypocholesterolemia 6133 6008 E78.6 stable Tobacco user 802695967 Z 72.0 pt reportedly started this medication for quitting smoking denies anxiety or depression diagnosis. he never quit smoking. he is not sure why he is still on this medication . he is however planning to quit smoking now. Neoplasm o f urinary bladder 673003310 D49.4 he is having it removed the . this is why he is planning to quit smoking [id number] July [facility] Internal Medicine [address] [facility], [place] [address] 12/28/2017 10:45:38 12/28/2017 11:35:49 Candidal urethritis 121238304 B37.41 will d/c invokana as this may be worsening Type 2 roc betes mellitus 81403150 E11.42 will d/c invokana at least temporaril y until his bladder is able to recover from this ongoing candidal infection will also add insulin lispro per sliding scale - who is nurse is comfortabl e with sliding scale instructio ns may be interested in seeing endo at some point Screening for malignant neoplasm of prostate 072115101 Z12.5 9079 July [facility] Internal Medicine [address] [facility], [address] [facility] [place] [address] 01/03/2018 14:23:00 01/03/2018 15:36:35 Candidal urethritis 085923948 B37.41 will d/c invokana as this may be worsening Type 2 roc betes mellitus 52787428 E11.42 will add 10 units at each meal + sliding scale correction 1-2 hours post prandial continue humulin 60 units BID continue increasing metformin remain off invokana for time being Screening for malignant neoplasm of prostate 682581386 Z12.5 Acute urin saul tract infection 501278706 N39.0 was treated by uro for a uti with cipro [id number] Ricardo Jamil [facility] Internal Medicine [address] [facility],[place] [address] 01/18/2018 14:02:06 01/18/2018 16:17:44 Type 2 diabetes mellitus 44431255 E11.65 elevated at 8.4 and is being better and doing fair at best Essential hypertension 24211381 I10 stable overall no major issues Adult [facility] th examination 006598661 Z00.00 stable despite current med issues [id number] Ricardo Jamil [facility] Internal Medicine [address] [facility],[place] [address] [facility] [place] [address] 02/21/2018 13:26:43 02/21/2018 14:00:17 Essential hypertension 18788111 I10 stable overall no major issues Type 2 roc betes mellitus 34801512 E11.65 elevated at 7.8 and is being better and doing fair at best Abdominal pain 34885292 R10.9 in LLQ feel this is poss divertic given abdominal exam will need to order tests and then empiricall y treat with levoflox and flagyl and start probiotic Neoplasm o f urinary bladder 634190305 D49.4 here for chk up followed by urology [id number] Ricardo Jamil [facility] Internal Medicine [address] [facility],[place] [address] 02/28/2018 13:24:35 02/28/2018 15:21:19 Neoplasm of urinary bladder 700927574 D49.4 here for chk up followed by urology and will need to go back to complete the bcg tx but not during diverticul itis flare Diverticul itis of sigmoid colon 109738615 K57.32 markedly improved and will finish his abx and then resume the bcg tx long discussion [id number] Ricardo Jamil [facility] Internal Medicine [address] [facility],[place] [address] 04/08/2018 14:25:19 04/08/2018 16:31:09 Type 2 diabetes mellitus 67328633 E11.65 see below for change in diff insulin Abdominal pain 33476742 R10.9 i believe this type of pain and cramping is from metformin has stopped and will see how he is over weekend also , will change to basaglar from inopfpd16/ 30 after calculatio ns, 0.8 X 120 total units is 96 units of basaglar but i feel this is too much will use 50 u at hs and see how he does [id number] Ricardo Jamil [facility] Internal Medicine [address] [facility] [address],[place] [address] 04/13/2018 14:12:44 04/13/2018 19:58:12 Diverticulitis of sigmoid colon 133859063 K57.32 cipro flagyl has only been started yesterday still feels awful i am worried that he has an abcess so we will ;order a CT scan and prob refer to surgeon Type 2 roc betes mellitus 53446538 E11.65 currently poorly controlled due to severe abdomn diverticul itis cont to provide coverage [id number] [place] SUE King [facility] Internal Medicine [address] [facility],[place] [address] [facility] [place] [address] 04/22/2018 14:53:03 04/26/2018 11:00:31 Diverticulitis 988821700 K57.92 no further abx recommende d at this point will recommend seeing GI to r/o any other GI cause of abdominal pain Abdominal pain 01814137 R10.9 most likely related to bladder at this point rather than ongoing diverticul itis based on CT Malignant neoplasm of urinary bladder 090291389 C67.9 has f/u with further testing before seeing uro Type 2 roc betes mellitus 80213819 E11.42 will do 20 units at each meal + sliding scale correction 1-2 hours post prandial doing 50 units of basaglar BID off metformin for possible GI side effects [id number] Ricardo Jamil [facility] Internal Medicine [address] [facility],[place] [address] 06/01/2018 11:39:59 06/01/2018 12:30:33 Type 2 diabetes mellitus 34929420 E11.65 currently poorly controlled a1c is 9.2 restart metformin 500 bid be careful with this Essential hypertension 30831102 I10 stable overall no major issues Neoplasm o f urinary bladder 122774273 D49.4 here for chk up followed by urology and will need to go back to complete the bcg tx but not during diverticul itis flare Chronic ki dney disease 728969531 N18.9 stop lisinopril gfr was89 now is down to 34 poss due to mitamycin and or bcg recheck cmp in 3 weeks [id number] Ricardo Jamil DO [facility] Internal Medicine [address] [facility],[place] [address] 06/24/2018 09:01:55 06/24/2018 09:44:27 Depressive disorder 29242903 F32.1 will try mirtazapin e and hopefully also improve his sleep as he is quite sleep deprived Type 2 roc betes mellitus 03604319 E11.65 currently poorly controlled a1c is 8.9 restart metformin 500 bid be careful with this re kidney function Essential hypertension 07449292 I10 stable overall no major issues Chronic re nal insufficiency 771232663 N18.9 recent creat at 2.1 was 1.3 in april was 1.7 in may metformin was just started couple weeks ago [id number] Ricardo Jamil [facility] Internal Medicine [address] [facility],[place] [address] 07/11/2018 13:26:50 07/11/2018 14:55:36 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 will advise we try antihistam franco and prednisone given that it helped tremendous ly was told at the [facility] he could restart the prednisone as it made him feel better and also was helping with the cystitis and also start the claritin agian Type 2 roc betes mellitus 31388667 E11.65 i now taking 60 u of lantus in am and 20 u lispro + sliding scale we will keep this for now \also will cont to track gluc also will start metformin 500 bid this Ricardo Jamil [facility] Internal Medicine [address] [facility] [address],[place] [address] 08/24/2018 09:47:51 08/24/2018 10:39:05 Type 2 diabetes mellitus 68268322 E11.65 a1c is now 7.9 taking 60 u of lantus in am and 20 u lispro + sliding scale \also will cont to track gluc metformin 500 bid this weekend Essential hypertension 92900433 I10 stable overall no major issues Recurrent urinary tract infection N39.0 has serratia growing but remains asymptomat ic prob is colonizati on is holding on the vantin per their instructio ns until unless he gets symptoms [id number] Ricardo Jamil [facility] Internal Medicine [address] [facility],[place] [address] 09/23/2018 12:11:48 09/23/2018 14:23:16 Type 2 diabetes mellitus 02913713 E11.65 a1c is now 8.5 was 7.9 still on PREDNISONE 20mg taking 60 u of lantus in am and 30 u lispro + sliding scale \also will cont to track gluc metformin 1000 bid this weekend Essential hypertension 30387586 I10 stable overall no major issues Tobacco user 569762830 Z 72.0 doesnt want to quit at this time Neoplasm o f urinary bladder 303487960 D49.4 here for chk up followed by urology and will need to go back to complete the bcg tx but not during diverticul itis flare Basal cell carcinoma of scalp 155904269 C44.41 [id number] Ricardo Jamil [facility] Internal Medicine [address] [facility] [address],[place] [address] 10/31/2018 13:45:13 10/31/2018 14:29:33 Type 2 diabetes mellitus 43573071 E11.65 a1c is now 8.9 was 8.5 still on PREDNISONE 17.5 mg taking 60 u of lantus in am and 30 u lispro + sliding scale \also will cont to track gluc metformin 1000 bid this weekend we have started to reduce the dose of the pred Essential hypertension 13086289 I10 stable overall no major issues Active or passive immunization 062794983 Z23 have asked him to get shingles and pneumovax [id number] Ricardo Jamil [facility] Internal Medicine [address] [facility] [address],[place] [place] [address] 12/14/2018 15:02:41 12/14/2018 15:55:13 Recurrent urinary tract infection 284543362 N39.0 has serratia growing and has been having symptoms will treat with cipro 500 bid for 10 Type 2 roc betes mellitus 75541762 E11.65 a1c was 8.5 still on PREDNISONE 7.5 mg taking 60 u of lantus in am and 30 u lispro + sliding scale \also will cont to track gluc metformin 1000 bid this weekend we have continued to reduce the dose of the pred Lower urin saul tract obstructive syndrome 80209711 N13.9 cont to void then not using [place]cutaneo [place] y [id number] Ricardo Jamil DO [facility] Internal Medicine [address] [facility],[place] [address] [place] [address] 04/18/2019 14:47:11 04/18/2019 15:20:35 Neoplasm of urinary bladder 210230679 D49.4 tolerating the ileal loop after the cystectomy last month Type 2 roc betes mellitus 18685522 E11.65 a1c was 7.3 and has been doing good post op taking 60 u of lantus in am and 30 u lispro + sliding scale and has been working well \also will cont to track gluc metformin will be restarted when needed as long as his renal parameters get better but im not actually happy about this we have continued to reduce the dose of the pred Essential hypertension 39167875 I10 stable overall no major issues [id number] Ricardo Jamil DO [facility] Internal Medicine [address] [facility],[place] [address] [place] [address] 07/25/2019 13:41:19 07/25/2019 14:31:29 Essential hypertension 42373380 I10 stable overall no major issues and remains stable Type 2 roc betes mellitus 78764778 E11.65 a1c is still 7.3 and has been doing good taking 60 u of lantus in am and 30 u lispro + sliding scale and has been working well \also will cont to track gluc metformin will be restarted when needed as long as his renal parameters get better but im not actually happy about this we have continued to reduce the dose of the pred SO WE WILL TRYT O GET HIM TRULICITY AND WILL ORDER [id number] Ricardo Jamil DO [facility] Internal Medicine [address] [facility],[place] [address] [place] [address] 10/23/2019 13:44:30 10/23/2019 14:31:21 Type 2 diabetes mellitus 31833456 E11.65 Doing well w/ trulicity Has been able to reduce long and short acting insulin A1C is 6.8 from 7.2 GFR still ~30 so hold metformin has lost 5 lbs overall 30 lbs since surgery has been doing good with more energy has been taking 30u of lantus in am and 25 u lispro + sliding scale ac and has been working well so we will decrease the lantus long acting to 15 units and he will adjust on hid own the lispro \also will cont to track gluc metformin will be restarted when needed as long as his renal parameters get better but im not actually happy about this and it will probably remain discontinu ed we have continued to reduce the dose of the pred Essential hypertension 53106021 I10 stable overall no major issues and remains stable [id number] BRY YUAN [facility] Internal Medicine [address] [facility],[place] [address] 02/12/2020 09:25:01 02/12/2020 13:31:01 Nausea and vomiting 65751456 R11.2 given symptoms and 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 i find it is prudent to test patient for COVID at this time Fever with chills 698920 006 R50.9 will set up with [facility] testing Headache 39702150 R51.9 is treating symptoms at this time with Advil [id number] Ricardo Jamil DO [facility] Internal Medicine [address] [facility],[place] [address] 03/12/2020 13:46:41 03/12/2020 14:55:06 Hydronephrosis 01926030 N13.30 s/p renal stone removal with infection etc on iv zosyn at home Type 2 roc betes mellitus 89476786 E11.65 off trulicity and now back on the lantus 60 u and seems to be having better numbers Metabolic acidosis 04295 009 E87.2 [id number] Ricardo Jamil DO [facility] Internal Medicine [address] [facility],[place] [address] 04/17/2020 08:14:10 04/17/2020 10:48:03 Diabetic peripheral neuropathy 214737341 E11.40 legs are stable and are staying numb checks every night no evid of ulers or callous formation discussed triciaian improtance of keeping a good eval of his feet daily Essential hypertension 34050253 I10 stable overall no major issues and remains stable and has been having it checked at hospital and is wnl no change in medication s remains compliant and no issues with med Type 2 roc betes mellitus 51468807 E11.65 the lantus 60 u and seems to be having better numbers continue he is vigilant re checking his glucose 3-4 timeds a day relates they are usu below 150 has updated sliding scale for when above 150 and also checks before each meal discussed improtance of this and need to be diligent a1c of 7.2 is good [place] [facility] his recent illness Neoplasm o f urinary bladder 263492562 D49.4 tolerating the ileal loop after the cystectomy last month has been stable except for the stone Chronic ki dney disease 777047169 N18.9 stopped the lisinopril months ago as gfr was down to 34 poss due to mitamycin and or bcg recheck cmp showed the gfr remained around 34 Hypercholesterolemia 136 07047 E78.00 rosuvastat in has been working well and the results are reviewed in detail encouraged to cont good diet now that he has gained some wgt back [id number] BRY YUAN [facility] Internal Medicine [address] [facility],[place] [address] 05/21/2020 15:00:38 05/21/2020 15:40:38 Type 2 diabetes mellitus 64882201 E11.9 stable at 6.8% on insulin, takes medication as prescribed Essential hypertension 29555750 I10 BP fine today at 130/68 Pre-surger y evaluation 071288429 Z01.818 based on history and physical and evaluation of patient chronic medical conditions , the patient is cleared for surgery [id number] Ricardo Jamil DO [facility] Internal Medicine [address] [facility],[place] [address] 07/08/2020 13:43:36 07/08/2020 14:37:35 Type 2 diabetes mellitus 47659015 E11.65 he is having elevated numbers at times has not gotten his lab for the a1c yet due to admin error he will get this done we will get an a1c and the urine microalb glucose at home and it is up an down and not well controlled at times Essential hypertension 82224847 I10 stable overall no major issues and remains stable and has been having it checked at hospital and is wnl no change in medication s remains compliant and no issues with med Diabetic p eripheral neuropathy 851840233 E11.40 legs are stable and are staying numb checks every night no evid of ulers or callous formation discussed agian improtance of keeping a good eval of his feet daily [id number] Ricardo Jamil DO [facility] Internal Medicine [address] [facility],[place] [address] 12/02/2020 12:17:16 12/02/2020 15:05:13 Malignant neoplasm of urinary bladder 033555817 C67.9 Depressive disorder 3548 9007 F32.1 will try mirtazapin e and hopefully also improve his sleep as he is quite sleep deprived Type 2 roc betes mellitus 43083421 E11.65 he is having elevated numbers at times A1C Is 6.6 glucose at home and it is up an down and not well controlled at times Fever 159333015 R50.9 not sure of source nos specific symptoms or signs [id number] Ricardo Jamil [facility] Internal Medicine [address] [facility], [address] [facility] [address] 03/07/2021 10:19:22 03/07/2021 14:14:31 Essential hypertension 44225246 I10 stable overall no major issues and remains stable and has been having it checked at hospital and is wnl no change in medication s remains compliant and no issues with med Type 2 roc betes mellitus 45108660 E11.65 he is having elevated numbers at times A1C Is 7.4 was 6.6 glucose at home and it is up an down and not well controlled at times Chronic ki dney disease 890593341 N18.9 stopped the lisinopril months ago as gfr was down to 34 poss due to mitamycin and or bcg recheck cmp showed the gfr remained around 34 Diabetic p eripheral neuropathy 100722589 E11.40 legs are stable and are staying numb checks every night no evid of ulers or callous formation discussed agian improtance of keeping a good eval of his feet daily Type 2 roc betes mellitus without complication 167830513 E11.9 [id number] Ricardo Jamil DO [facility] Internal Medicine [address] [facility],[place] [address] 06/16/2021 10:21:09 06/16/2021 11:08:59 Type 2 diabetes mellitus 40426540 E11.65 he is having elevated numbers at times A1C is 7.1 was 7.4 was 6.6 glucose at home and it is up an down and not well controlled at times Essential hypertension 53995328 I10 stable overall no major issues and remains stable and has been having it checked at hospital and is wnl no change in medication s remains compliant and no issues with med Malignant neoplasm of urinary bladder 736948216 C67.9 currently stable Depressive disorder 3548 9007 F32.1 will try mirtazapin e and hopefully also improve his sleep as he is quite sleep deprived Type 2 roc betes mellitus without complication 051249891 E11.9 a1c is 7.1 [id number] Ricardo Jamil [facility] Internal Medicine [address] [facility],[place] [address] 11/26/2021 15:40:58 11/26/2021 16:31:21 Type 2 diabetes mellitus 30719737 E11.65 he is having elevated numbers at times A1C is 6.8 and was 7.1 was 7.4 was 6.6 glucose at home and it is up an down and not well controlled at times Essential hypertension 86337174 I10 stable overall no major issues and remains stable and has been having it checked at hospital and is wnl no change in medication s remains compliant and no issues with med Advance care planning 71 4735480 Z71.89 done Active or passive immunization 767160585 Z23 patient advised he is due for tdap, pneu & shingles Edema of l ower extremity 419985763 R60.0 [id number] Ricardo Jamil [facility] Internal Medicine [address] [facility],[place] [address] 02/20/2022 09:13:55 02/20/2022 16:32:08 Essential hypertension 64188682 I10 stable overall no major issues and remains stable and has been having it checked at hospital and is wnl no change in medication s remains compliant and no issues with med Type 2 roc betes mellitus 58341456 E11.65 he is having elevated numbers at times A1C is 7.8 but was on steroids 6.8 and was 7.1 was 7.4 was 6.6 glucose at home and it is up an down and not well controlled at times Chronic ki dney disease 931631162 N18.9 stopped the lisinopril months ago as gfr was down to 34 poss due to mitamycin and or bcg recheck cmp showed the gfr remained around 34 COVID-19 756503740 U07.1 improved [id number] Ricardo Jamil [facility] Internal Medicine [address] [facility],[place] [address] 08/05/2022 13:37:30 08/05/2022 14:18:12 Essential hypertension 18658544 I10 stable overall no major issues and remains stable and has been having it checked at hospital and is wnl no change in medication s remains compliant and no issues with med Chronic ki dney disease 194701839 N18.9 stopped the lisinopril months ago as gfr was down to 34 poss due to mitamycin and or bcg recheck cmp showed the gfr remained around 30 Type 2 roc betes mellitus 62317901 E11.65 he is having elevated numbers at times A1C is 7.8 but was on steroids 6.8 and was 7.1 was 7.4 was 6.6 glucose at home and it is up an down and not well controlled at times Type 2 roc betes mellitus without complication 678426382 E11.9 see above Depressive disorder 3548 9007 F32.1 will try mirtazapin e and hopefully also improve his sleep as he is quite sleep deprived Malignant neoplasm of urinary bladder 967260219 C67.9 currently stable [id number] [facility] [address] [facility] [address],[place], [place] 7 01/25/2023 09:24:09 01/25/2023 16:46:16 Hypercholesterolemia 73045400 E78.00 rosuvastat in has been working well and the results are reviewed in detail encouraged to cont good diet now that he has gained some wgt back Type 2 roc betes mellitus 39668884 E11.65 he is having elevated numbers at times A1C is 7.8 but was on steroids 6.8 and was 7.1 was 7.4 was 6.6awaitin g to feel better to get labglucose at home and it is up an down and not well controlled at times Essential hypertension 17806162 I10 stable overall no major issues and remains stable but has not chkd at home prior and has been having it checked at hospital and is wnl no change in medication s remains compliant and no issues with med [id number] Ricardo Jamil [facility] Internal Medicine [address] [facility],[place] [address] 05/07/2023 08:03:22 05/07/2023 13:42:13 Hypercholesterolemia 56972226 E78.00 rosuvastat in has been working well and the results are reviewed in detail encouraged to cont good diet now that he has gained some wgt back Essential hypertension 91808895 I10 stable overall no major issues and remains stable but has not chkd at home prior and has been having it checked at hospital and is wnl no change in medication s remains compliant and no issues with med Type 2 roc betes mellitus 53514032 E11.65 he is having elevated numbers at times A1C is 7.2 but was on steroids 6.8 and was 7.1 was 7.4 was 6.6awaitin g to feel better to get labglucose at home and it is up an down and not well controlled at times Chronic ki dney disease 386691450 N18.9 stopped the lisinopril months ago as gfr was down to 34 poss due to mitamycin and or bcg recheck cmp showed the gfr remained around 30 [id number] Ricardo Jamil [facility] Internal Medicine [address] [facility] [place] [place] [address] 08/09/2023 15:03:19 08/09/2023 16:24:07 Type 2 diabetes mellitus without complication [id number] E11.9 a1c is 7.8 n was 7.2 see below Essential hypertension [id number] I10 stable overall no major issues and remains stable but has not chkd at home prior and has been having it checked at hospital and is wnl no change in medication s remains compliant and no issues with med Diabetic p eripheral neuropathy [id number] E11.40 legs are stable and are staying numb checks every night no evid of ulers or callous formation discussed agian improtance of keeping a good eval of his feet daily Depression screening 171 [id number] Z13.31 Negative Screening Type 2 roc betes mellitus [id number] E11.65 he is having elevated numbers at times A1C is 7.8 was 7.2 but was on steroids 6.8 and was 7.1 was 7.4 was 6.6awaitin g to feel better to get labglucose at home and it is up an down and not well controlled at times [id number] Ricardo Jamil [facility] [address] [facility],[place] [address] 11/17/2023 11:27:46 11/17/2023 13:22:49 Adult health examination [id number] Z00.00 stable despite current med issues Screening for cardiovascular system disease [id number] Z13.6 not due until apr Depressive disorder [id number] 9007 F32.1 refilled the bupropion Type 2 roc betes mellitus without complication [id number] E11.9 a1c is 7.2 we will have him split the dose of basaglar to 40 and 20 [id number] Ricardo Jamil [facility] [address] [facility],Martinez itrolanda Calzada [facility] [place] [address] 03/06/2024 11:14:33 03/06/2024 12:01:39 Hypercholesterolemia [id number] E78.00 rosuvastat in has been working well and the results are reviewed in detail encouraged to cont good diet now that he has gained some wgt back Type 2 roc betes mellitus [id number] E11.9 Chronic ki dney disease [id number] N18.9 stopped the lisinopril months ago as gfr was down to 34 poss due to mitamycin and or bcg recheck cmp showed the gfr remained around 30 Edema of l ower extremity [id number] R60.0 stable Essential hypertension 92757908 I10 stable overall no major issues and remains stable but has not chkd at home prior and has been having it checked at hospital and is wnl no change in medication s remains compliant and no issues with med Health Concerns Section Related Observation LastModified by Organization Detai ria LastModified Time None Recorded Concern Status LastModified by Organization Details LastModified Time None Recorded Advance Directives Directive None Recorded Payers Encounter Date Sequence Insurance Name Policy Number Policy Ruiz Covered Member ID Ruiz Member ID Guarantor Name 01/25/2023 1 [facility] - MEDICARE PREFERRED (MEDICARE REPLACEMENT HMO) [address] Estrella [id number] 1 Nico Estrella 05/07/2023 1 [facility] - MEDICARE PREFERRED (MEDICARE REPLACEMENT HMO) [address]rella [id number] 1 Nico Estrella 08/09/2023 1 [facility] - MEDICARE PREFERRED (MEDICARE REPLACEMENT HMO) [address] N[address] Estrella [id number] 1 Nico Estrella 11/17/2023 1 [facility] - MEDICARE PREFERRED (MEDICARE REPLACEMENT HMO) [address] N[address] Estrella [id number] 1 Nico Estrella 03/06/2024 1 [facility] - MEDICARE PREFERRED (MEDICARE REPLACEMENT HMO) [address] N[address] Estrella [id number] Nico Estrella Notes Date Note Type Note Provider Name and Address Organization Details Recorded Time 3 text/htm l Care Management - DiabetesReported bypatient.Self Care:seeing eye doctor yearly for dilated eye exam; checking feet regularly; normal range of home blood sugars (in the low 100s); no side effects from medications; hemoglobin A1C goal: <7 Associated Symptoms:symptoms are usually well controlled; no fatigue; no dizziness; no excessive sweating; no headaches; no confusion; no increased thirst; no increased appetite; no increased urination; no blurred vision; no numbness of feet; no calluses on feet patient is evaluated via tele/video assessment per patient consentduring current pandemicwent on a vacation [facility] upon return had developed a coldcovid negative has been sick for 6 days and is getting slowly betterhad a very bad cough initially and now is minimal no tightness in chestno fevers now eating ok but not much glucose good Ricardo Jamil, DO [address] [facility], [place], [address], [facility] 01/25/2023 15:55:42 4 text/htm l Care Management - DiabetesReported bypatient.Prognosis:expe cted outcome: stabilize; prognosis: moderate Self Care:seeing eye doctor yearly for dilated eye exam; checking feet regularly; normal range of home blood sugars (in the low 100s); no side effects from medications; frequency of blood glucose monitoring: ; hemoglobin A1C goal: <6.5; LDL levels have been: <100; checks blood pressure at home (range ); hemoglobin A1C levels have been: 7-8 Associated Symptoms:symptoms are usually well controlled; no fatigue; no dizziness; no excessive sweating; no headaches; no confusion; no increased thirst; no increased appetite; no increased urination; no blurred vision; no numbness of feet; no calluses on feet patient is evaluated via tele/video assessment per patient consent during current pandemic here for [place] nd is feeling ok relates glucose has been up lately Ricardo Jamil DO [address] [place] [address], [phone], [facility] 05/07/2023 10:17:29 4 text/htm l Care Management - DiabetesReported bypatient.Self Care:seeing eye doctor yearly for dilated eye exam; checking feet regularly; normal range of home blood sugars (in the low 100s); no side effects from medications Associated Symptoms:symptoms are usually well controlled; no fatigue; no dizziness; no excessive sweating; no headaches; no confusion; no increased thirst; no increased appetite; no increased urination; no blurred vision; no numbness of feet; no calluses on feetNotes:Care Management - HypertensionReported bypatient.Self Care:not under emotional stress Severity:symptoms are improving; does not interfere with daily activities Associated Symptoms:no dizziness; no lightheadedness; no chest pain; no shortness of breath; no palpitations; no edema; no calf muscle cramps; no blurred vision; no confusion; no headaches; no fatigue here for sofia and is doing ok tired a lotfell the other day and had to crawl in order to get to his vehicle to get up Ricardo Jamil DO [address] [place] [address], [phone], [facility] 08/09/2023 15:34:58 4 text/htm l Medicare Annual Wellness VisitReported bypatient.Diet and Nutrition:healthy diet Fracture Risk:no history of fractures; no recent explained fracture; no sudden unexplained fractures; no previous musculoskeletal injuries Physical Activity:exercises on a regular basis; recent increase in physical activity; good physical condition Depression Risk:never feels sad, empty, or tearful; no loss of interest in activities; no significant changes in weight; no sleep disturbances or insomnia; no agitation; no loss of energy; no feelings of worthlessness or guilt; no thoughts of suicide; no history of depression; no history of mood disorders Orientation:no disorientation to time; no disorientation to date; no disorientation to place Concentration and Memory:no decreased concentrating ability; no memory lapses or loss; does not forget words Speech/Motor difficulties:no speech difficulties; no difficulty expressing formulated concepts; no difficulty with fine manipulative tasks; no difficulty writing/copying; no slowed reaction time; does not knock things over when trying to pick them up Hearing:no loss of hearing Vision:no vision problems Activities of Daily Living:able to bathe with limited or no assistance; able to contol urination and bowels; able to dress with limited or no assistance; able to feed self with limited or no assistance; able to get out of chair or bed with limited or no assistance; able to groom with limited or no assistance; able to toilet with limited or no assistance Instrumental Activities of Daily Living:able to do house work with limited or no assistance; able to grocery shop with limited or no assistance; able to manage medications with limited or no assistance; able to manage money with limited or no assistance; able to prepare meals with limited or no assistance; able to use the phone with limited or no assistance Falls Risk Assessment:no frequent falls while walking; no fall in the past year; no fall since last visit; no dizziness/vertigo Home Safety:no unsafe sasha hazzards; no unsafe stairs; no unsafe gas appliances; working smoke/CO detectors; wears protective head gear for biking/high velocity; use of seatbelts; practicing 'safer sex'; no vision or hearing loss while driving; no fire arms; has hand bars in the bathroom/shower; good lighting in the home Ricardo Jamil, DO [address] [facility], [place], [address], [facility] 11/17/2023 12:19:20 4 text/htm l Care Management - DiabetesReported bypatient.Self Care:seeing eye doctor yearly for dilated eye exam; checking feet regularly; normal range of home blood sugars (in the low 100s); no side effects from medications Associated Symptoms:symptoms are usually well controlled; no fatigue; no dizziness; no excessive sweating; no headaches; no confusion; no increased thirst; no increased appetite; no increased urination; no blurred vision; no numbness of feet; no calluses on feetCare Management - HypertensionReported bypatient.Self Care:not under emotional stress Severity:symptoms are improving; does not interfere with daily activities Associated Symptoms:no dizziness; no lightheadedness; no chest pain; no shortness of breath; no palpitations; no edema; no calf muscle cramps; no blurred vision; no confusion; no headaches; no fatigue here for rechkdoing wellrelates that he has no issues except that the pred caused his gluc to go up Ricardo Jamil, DO [address] [place] [address], [place], [address], [facility] 03/06/2024 12:00:41
--- OUTSIDE RECORDS SUMMARY | 2024-06-02 13:30 | XMS_ITS | Clinical Summary ---
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 Active HumaLOG KWIKPEN 100 UNIT/ML injection take 30 units per meal plus 0-15 units per sliding scale as needed for correction. Active Basaglar KwikPen 100 UNIT/ML pen INJECT 50 UNITS SUBCUTANEOUSLY TWO TIMES A DAY Active rosuvastatin (Crestor) 10 MG tablet Take 1 tablet by mouth Once per day. Active Social History Tobacco Use Types Packs/Day Years Used Date Smoking Tobacco: Every Day Cigarettes Smokeless Tobacco: Never Tobacco Cessation:Ready to Q uit: Not Asked; Counseling Given: Not Answered Sex and Gender Information Value Date Recorded Sex Assigned at Male 08/24/2023 11:33 AM EDT Legal Sex Male 11:31 AM EDT Gender Identity Male 08/24/2023 11:33 AM EDT Sexual Orientation Straight 08/24/2023 11 :33 AM EDT Last Filed Vital Signs Vital Sign Reading Time Taken Comments Blood Pressure 128/82 10/12/2023 11:04 AM EDT Pulse 59 09/02/2023 2:16 PM EDT Temperature - - Respiratory Rate - - Oxygen Saturation - - Inhaled Oxygen Concentration - - Weight - - Height - - Body Mass Index - - Plan of Treatment Health Maintenance Due Date Last Done Comments Dental Oral Exam 1944 Dental Prophylaxis 1944 Dental X-Ray: Bitewings 1944 Depression Screening 1944 Lipid Panel 1944 SDOH Screening 1944 Alcohol/Substance Use Screening 1956 Hepatitis C Screening 1962 DTaP/Tdap/Td Vaccines (1 - Tdap) 12/05/1963 Pneumococcal Vaccine: 50+ Ye ars (1 of 2 - PCV) 12/05/1963 Zoster Vaccines (1 of 2) 1994 RSV Patients and Pa tients Aged 60 years or older (1 - 1-dose 75+ series) 12/05/2019 COVID-19 Vaccine (2 - 2023-2 5 season) 2023 06/19/2020 Influenza Vaccine (#1) 2023 Tobacco Screening 10/18/2024 10/19/2023 Dental X-Ray: Full Mouth 09/02/2026 09/02/2023 HIB Vaccines Aged Out No longer eligi ble based on patient's age to complete this topic HPV Vaccines Aged Out No longer eligi ble based on patient's age to complete this topic Hepatitis A Vaccines Aged Out No long er eligible based on patient's age to complete this topic Hepatitis B Vaccines Aged Out No long er eligible based on patient's age to complete this topic IPV Vaccines Aged Out No longer eligi ble based on patient's age to complete this topic Meningococcal Vaccine Aged Out No jeremy chun eligible based on patient's age to complete this topic RSV under 20 months Aged Out No longe r eligible based on patient's age to complete this topic Rotavirus Vaccines Aged Out No longer eligible based on patient's age to complete this topic Procedures Procedure Name Priority Date/Time Associated Diagnosis Comments PANORAMIC RADIOGRAPHIC IMAGE Routine 09/02/2023 2:00 PM EDT from Last 3 Months or Most Recently Relevant to Health Maintenance
[2024-06-02 13:50] LABS: Estimated Average Glucose 143 mg/dL; Hemoglobin A1c % 6.6 % (<6.0); Total Hemoglobin (HGBA1C) 3992.7215 umol/L
[2024-06-02 15:06] LABS: Alanine Aminotransferase 44 U/L (0-40); Albumin Level 3.9 g/dL (3.5-5.0); Alkaline Phosphatase 49 U/L (39-117); Anion Gap 11 (12-20); Aspartate Amino Transferase 27 U/L (5-37); Bilirubin Total 0.6 mg/dL (0.0-1.0); Blood Urea Nitrogen 43 mg/dL (9-16); Calcium 9.2 mg/dL (8.4-10.2); Carbon Dioxide 23 mmol/L (22-29); Chloride 112 mmol/L (96-108); Estimated Glomerular Filt Rate 36; Glucose Random 174 mg/dL (60-115); Potassium 4.4 mmol/L (3.3-5.1); Sodium 142 mmol/L (135-145); Total Protein 6.8 g/dL (6.5-8.0)
== END 2024-06-02 11:21 | disposition home or self-care (01) ==
LOC: HO.MANLDS 11:20
PROVIDERS: Visit Provider Internal Medicine
DX: E11.65 Type 2 diabetes mellitus with hyperglycemia (principal)
CPT/HCPCS: 36415; 80053; 83036

== ENCOUNTER 2024-09-08 09:45 | Outpatient (REF) | payer MEDICARE, SELFPAY ==
--- OUTSIDE RECORDS SUMMARY | 2024-09-08 10:23 | XMS_ITS | Data Portability ---
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) MDM MODERATE MUST MEET 2 OUT OF [...] THAT IS COVERED Not available 03/06/2024 11:57:29 06/05/2024 06/05/2024 [id number] [place] [id number]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) MDM MODERATE MUST MEET 2 OUT OF [...] EACH ELEMENT THAT IS COVERED Not available 06/05/2024 12:08:43 Plan of Treatment Reminders Order Date Submit Date Provider Last Modified By Organization Details Last Modified Time Details Appointments FOLLOW UP 15 2024 02:15P M DR JAMIL Not available Not available Not available Lab HbA1c (hemoglob in A1c), blood 2023 024 [facility], [address] [place] [address], [id number], 06/05/2024 12:05:04 lipid panel, blood 2023 024 [facility], [address] [place] [address], [id number], 03/01/2024 11:31:02 CMP, serum or plasma 2023 024 [facility], [address] [place] [address], [id number], 03/01/2024 11:31:02 CBC w/ auto diff 2023 024 [facility], [address] [place] [address], [id number], 03/01/2024 11:31:02 PSA, serum or plasma 2023 024 [facility], [address] [place] [address], [address], 03/01/2024 11:31:02 HbA1c (hemoglob in A1c), blood 2022 024 [facility], [address] [place] [address], [address], 05/07/2023 10:18:05 CMP, serum or plasma 2022 024 [facility], [address] [place] [address], [id number], 05/07/2023 10:18:05 Referral None recorded. Procedures None recorded. Surgeries None recorded. Imaging None recorded. Medication Orders Garima Hatfield U-100 Insulin 100 unit/mL (3 mL) subcutane ous 2024 025 [facility], [facility] [place], [address], 06/05/2024 12:15:33 pregabali n 75 mg capsule 2024 025 [facility], [facility] [place], [address], 06/05/2024 12:12:03 Admelog SoloStar U-100 Insulin lispro 100 unit/mL subcutane ous pen 2024 025 [facility], [facility] [place], [address], 06/05/2024 12:14:09 bupropion HCl XL 150 mg 24 hr tablet, extended release 2023 024 [facility], [facility] [place], [address], 11/17/2023 13:36:15 Patient TargetsNo targets recorded. Patient Instructions Encounter Date Encounter Id Patient Instructions Last Modified By Organization Details Last Modified Time 11/17/2023 [id number] type 2 diabetes: care instructions Not available 11/17/2023 12:19:12 learning about mood disorders Not available 11/17/2023 12:14:32 Discussed and explained advance directives such as standard forms to the patient. Face to face discussion lasted for a duration of _6__ minutes. Not available 11/17/2023 12:13:21 03/06/2024 [id number] leg and ankle edema: care instructions Not [...] view No observ ation record ed. [email or web address] [address], [place], [address], 02/16/2024 15:59:27 Result Notes None recorded. Problems Name Problem SNOMED Code Status Onset Date Resolution Date Notes Provider Name and Address Organization Details Recorded Time Neoplasm of urinary bladder 379967376 Active 2017 Ricardo Jamil DO [address] [place] [address], [address], [facility] 8 13:48:32 Divertic ulitis of sigmoid colon 959676407 Active 2017 Ricardo Jamil DO [address] [place] [address], [address], [facility] 8 13:56:11 Abdomina l pain 56063387 Active 2018 Ricardo Jamil DO [address] [place] [address], [address], [facility] 9 14:58:02 Recurren t urinary tract infectio n 723600382 Active 2018 Ricardo Jamil DO [address] [place] [address], [address], [facility] 9 15:39:21 Chronic kidney disease 000304752 Active 2019 Ricardo Jamil DO [address] [place] [address], [address], [facility] 0 14:21:49 Hypercho lesterol emia 77119082 Active 2020 Ricardo Jamil DO [address] [place] [address], [address], [facility] 1 10:13:57 Edema of lower extremit y 471971051 Active 2021 Ricardo Jamil DO [address] [place] [address], [address], [facility] 2 16:27:04 Type 2 diabetes mellitus 07720967 Active 2017 [facility] 15:10:56 Essentia l hyperten bell 62946715 Active 2017 [facility] 8 15:11:05 Tobacco user 782680490 Active 2017 [facility] 8 15:11:41 Pleural plaque 387697375 Active [address] 2216 asbestos [facility] 8 15:12:54 Solitary nodule of lung 457157063 Active 2017 [facility] 8 15:14:11 Cellulit is 560733800 Active 2017 Left Toe [facility] 8 15:14:42 Diabetic peripher al neuropat hy 163449003 Active 2017 [facility] 8 15:17:09 COVID-19 742047437 Active 2021 Ricardo Jamil DO [address] [place] [address], [address], [facility] 2 14:20:58 Depressi ve disorder 64587930 Active 2022 iRcardo Jamil DO [address] [place] [address], [address], [facility] 3 14:00:08 Malignan t neoplasm of urinary bladder 925788074 Active 2022 Ricardo Jamil DO [address] [place] [address], [address], [facility] 3 14:00:11 Herpes labialis 4805966 Active 2023 BRY YUAN [address] [place], [address], [facility] 4 10:02:21 Acute bronchit is 62300555 Active 2023 BRY YUAN [address] [place], [address], [facility] 4 12:29:00 Notes:Some problems listed i n Documents: #[id number], #[id number] could not be added to this patient's chart. Please review these documents and add these problems to the patient's chart manually as needed. Problem Notes None recorded. Procedures Surgical History Date Name Laterality Status Provider Name and Address Organization Details Recorded Time 9 Colonoscopy completed Bernardaregis Garcia [facility] 05/21/2020 15:06:58 Imaging Results None recorded. Procedure Notes None recorded. Medical Equipment None Reported. Allergies Allergen ID Allergen Name Allergen Category Reaction Reaction Severity Criticality Documentation Date Start Date Code Code System Note Provider Name and Address Organization Details Recorded Time 2419 Invokana medicatio n other severe Not available 01/18/20182017 83512 64 RxNorm Ricardo Jamil DO [address] [place] [address], [address], [facility] 8 14:36:32 2970 mirtazapi ne medicatio n other severe Not available 07/11/2018 44962 RxNorm Ricardo Jamil DO [address] [place] [address], [address], [facility] 9 13:40:32 83 Lipitor medicatio n diarrhea Not available Not available 06/02/2017 63841 5 RxNorm [facility] 8 14:55:43 85 Substance with sulfonami de structure and antibacte rial mechanism of action (substanc e) medicatio n Not available Not available Not available 06/02/2017 18559 8003 SNOMED [facility] 8 15:10:17 Medications Name Sig Start [...] 4 mg tablets in a dose pack USE DIRECTED 06/05 completed Not Available Not Available Not Available timolol maleate 0.5 % eye drops [...] Available Not Available Not Available amoxicillin 500 mg-potassiu m clavulanate 125 mg tablet 07/09 completed Not Available Not Available Not Available oxycodone 5 mg tablet PRN 05/21 completed Not Available Not Available Not Available enoxaparin 40 mg/0.4 mL subcutaneou s syringe 04/18 completed Not Available Not Available Not Available rosuvastati n 10 mg tablet TAKE 1 TABLET DAILY 2024 active Not Available Not Available Not Avai lable bupropion HCl XL 300 mg 24 hr tablet, extended release 12/28 completed Not Available Not Available Not Available bupropion HCl XL 150 mg 24 hr tablet, extended release TAKE 1 TABLET DAILY active Not Available Not Available No t Available pregabalin 75 mg capsule TAKE 1 CAPSULE TWICE DAILY active Not Available Not Available No t Available NovoFine 30 30 gauge x 1/3 needle [...] PEN SUBCUTANE OUSLY ONCE WEEKLY IN THE MOPRNING 08/05 completed Not Available Not Available Not Available Trulicity 0.75 mg/0.5 mL subcutaneou s pen injector Inject 0.5 mL every week by subcutane ous route for 30 days. 03/12 completed Not Available Not Available Not Available Basaglar KwikPen U-100 Insulin 100 unit/mL (3 mL) subcutaneou s INJECT 40 UNITS IN THE MORNING AND 20 UNITS IN THEEVENIN G SUBCUTANE OUSLY active Not Available Not Available No t Available Basaglar KwikPen U-100 Insulin 60 units in the morning 11/26 completed Not Available Not Available Not Available BD Ultra-Fine Micro Pen Needle 32 gauge x 1/4 USE AND DISCARD 1 PEN NEEDLE TWO TIMES A DAY DIRECTED active Not Available Not Available No t Available Fiasp FlexTouch U-100 Insulin 100 unit/mL (3 mL) subcutaneou s pen INJECT 30 UNITS SUBCUTANE OUSLY PER MEAL PLUS 0-15 UNITS PER SLIDING SCALE NEEDED FOR CORRECTIO N. MAXIMUM 135 UNITS PER DAY. 06/05 completed Not Available Not Available Not Available Admelog SoloStar U-100 Insulin lispro 100 unit/mL subcutaneou s pen INJECT 30 UNITS SUBCUTANE OUSLY PER MEAL PLUS 0-15 UNITS PER SLIDING SCALE NEEDED FOR CORRECTIO N. active Not Available Not Available No t Available Paxlovid 300 mg (150 mg x 2)-100 mg tablets in a dose pack Take 1 dose pk by oral route as directed for 5 days. 08/08 completed Not Available Not Available Not Available Paxlovid 150 mg-100 mg tablets in a dose pack (Moderate Renal Dose) TK 1 NIRMATREL VIR T AND 1 RITONAVIR T TOGETHER PO BID FOR 5 DAYS 08/08 completed Not Available Not Available Not Available FreeStyle Ba 3 [place] USE DIRECTED active Not Available Not Available [...] and Address Organization Details Last Updated DateTime 193.04 cm 31.5 kg/m2 876601. 42 g 55 /min 98 % 98 % 142 mm[Hg] 78 mm[Hg] Ricardo Jamil, DO [address] [place], [address], [facility] 5 11:49:14 Date Recorded Body height Body mass index (BMI) Body weight Heart rate Respiratory rate Oxygen saturation Oxygen saturation in Arterial blood by Pulse oximetry Systolic blood pressure Diastolic blood pressure Provider Name and Address Organization Details Last Updated DateTime 4 193.04 cm 31.6 kg/m2 921627. 02 g 86 /min 16 /min 95 % 95 % 142 mm[Hg] 84 mm[Hg] Rodo Huynh [facility] 4 15:11:27 Date Recorded Body height Body mass index (BMI) Body weight Heart rate Oxygen saturation Oxygen saturation in Arterial blood by Pulse oximetry Systolic blood pressure Diastolic blood pressure Provider Name and Address Organization Details Last Updated DateTime 4 193.04 cm 31.8 kg/m2 707183. 61 g 66 /min 98 % 98 % 128 mm[Hg] 76 mm[Hg] Rodo Huynh [facility] 4 11:40:53 Date Recorded Body height Body mass index (BMI) Body weight Heart rate Oxygen saturation Oxygen saturation in Arterial blood by Pulse oximetry Systolic blood pressure Diastolic blood pressure Provider Name and Address Organization Details Last Updated DateTime 4 193.04 cm 30.7 kg/m2 678797. 28 g 77 /min 98 % 98 % 144 mm[Hg] 80 mm[Hg] Rodo Huynh [facility] 4 11:30:29 Social History Question Answer Notes LastModified by Organizat ion Details LastModified Time Tobacco Smoking Status Current Every Day Smoker Ricardo Jamil DO [address] [place], [address], [facility] 11/26/2021 15:47:12 What Was The Date Of Your Most Recent Tobacco Screening? 06/05/2024 Information not available 06/05/2024 How Much Tobacco Do You Smoke? 1 PPD [email or web address] Information not available 08/09/2023 How Many Years Have You Smoked Tobacco? 60 [id number] Information not available 02/06/2020 Sex: Unknown Functional Status Question Answer Note LastModified by Organization D etails LastModified Time Do you or have you ever used any other forms of tobacco or nicotine? No Information not available 11/26/2021 Mental Status None recorded. Family History Nothing Reported. Medical History Condition Response Coronary Artery Disease N Gout N Other N Kidney Stones N Blood Diseases N Blood Transfusion N Breast Cancer N COPD N Depression N Lung Disease N Defects or Inherited Disease N Anxiety [...] N Thyroid Problems N GI Problems N Eating Disorder N Skin Problems Y Anemia N MRSA exposure N Constipation N Mental Illness N Diabetes Y Ovarian Cancer N Seizures/Epilepsy N Tuberculosis N Congestive Heart Failure (CHF) N Eczema N Abuse/Domestic Violence N Diverticulitis N Asthma N Reflux/GERD N Hepatitis N Heart Disease N Pulmonary Embolism N Hypertension N Chicken Pox N Autism Spectrum Disorder (ASD) N Osteoporosis N Immunizations Vaccine Type Date Status Note Provider Nam e and Address Organization Details Recorded Time SARS-COV-2 (COVID-19) vaccine, UNSPECIFIED 1 completed Ricardo Jamil DO [address] [place] [address], [address], [facility] 07/08/2020 13:57:16 Past Encounters Encounter ID Performer Location Encounter Start Date Encounter Closed Date Diagnosis/Indication Diagnosis SNOMED-CT Code Diagnosis ICD10 Code Diagnosis Note July SUE King [facility] [address] [facility],[place] [address] 07/09/2017 10:33:15 07/09/2017 11:48:30 Type 2 diabetes mellitus 30061754 E11.42 stable, nearly at goal- continue to monitor diet/exerc ise reinforced Essential hypertension 30646456 I10 stable on current regimen- continue Chronic low back pain 27 2457649 M54.5 with b/l leg aching Increased frequency of urination 518031490 R35.0 order urinalysis + cx r/o infection - hand written order give to pt Impotence 587190351 N52. 9 order PSA - hand written order given to pt Tobacco user 480178175 Z 72.0 not ready to quit Vertigo 912566761 R42 with progressiv e hearing loss for past 40 years [id number] Ricardo Jamil DO [facility] [address] [facility], [place] [address] 10/13/2017 10:41:19 10/13/2017 11:38:12 Type 2 diabetes mellitus 46511773 E11.42 admits noncomplia nt with diet diet/exerc ise reinforced unclear from chart why he isn't on metformin pt not sure either, thinks maybe it didn't work. not really sure will have f/u with [facility] Essential hypertension 36285410 I10 stable on current regimen- continue Hypocholesterolemia 6133 6008 E78.6 stable Tobacco user 798813153 Z 72.0 pt reportedly started this medication for quitting smoking denies anxiety or depression diagnosis. he never quit smoking. he is not sure why he is still on this medication . he is however planning to quit smoking now. Neoplasm o f urinary bladder 314102766 D49.4 he is having it removed the . this is why he is planning to quit smoking [id number] Ricardo Jamil [facility] [address] [facility], [place] [address] 12/28/2017 10:45:38 12/28/2017 11:35:49 Candidal urethritis B37.41 will d/c invokana as this may be worsening Type 2 roc betes mellitus 99899767 E11.42 will d/c invokana at least temporaril y until his bladder is able to recover from this ongoing candidal infection will also add insulin lispro per sliding scale - who is nurse is comfortabl e with sliding scale instructio ns may be interested in seeing endo at some point Screening for malignant neoplasm of prostate 193352811 Z12.5 [id number] Ricardo Jamil [facility] [address] [facility],[place] [address] 01/03/2018 14:23:00 01/03/2018 15:36:35 Candidal urethritis 211940113 B37.41 will d/c invokana as this may be worsening Type 2 roc betes mellitus 51748503 E11.42 will add 10 units at each meal + sliding scale correction 1-2 hours post prandial continue humulin 60 units BID continue increasing metformin remain off invokana for time being Screening for malignant neoplasm of prostate 486133645 Z12.5 Acute urin saul tract infection 342909747 N39.0 was treated by uro for a uti with cipro [id number] Ricardo Jamil [facility] [address] [facility],[place] [address] 01/18/2018 14:02:06 01/18/2018 16:17:44 Type 2 diabetes mellitus 73215703 E11.65 elevated at 8.4 and is being better and doing fair at best Essential hypertension 05015768 I10 stable overall no major issues Adult heal th examination 409997418 Z00.00 stable despite current med issues [id number] Ricardo Jamil [address], [place] [address] 02/21/2018 13:26:43 02/21/2018 14:00:17 Essential hypertension 04727049 I10 stable overall no major issues Type 2 roc betes mellitus 47652477 E11.65 elevated at 7.8 and is being better and doing fair at best Abdominal pain 38304364 R10.9 in LLQ feel this is poss divertic given abdominal exam will need to order tests and then empiricall y treat with levoflox and flagyl and start probiotic Neoplasm o f urinary bladder 141311534 D49.4 here for chk up followed by urology [id number] Ricardo Jamil [facility] [address] [facility],[place] [employer] [facility] [place] [address] 02/28/2018 13:24:35 02/28/2018 15:21:19 Neoplasm of urinary bladder 736778196 D49.4 here for chk up followed by urology and will need to go back to complete the bcg tx but not during diverticul itis flare Diverticul itis of sigmoid colon 544117148 K57.32 markedly improved and will finish his abx and then resume the bcg tx long discussion [id number] Ricardo Jamil [facility] [address],[place] [facility] [address] 04/08/2018 14:25:19 04/08/2018 16:31:09 Type 2 diabetes mellitus 53861418 E11.65 see below for change in diff insulin Abdominal pain 82833085 R10.9 i believe this type of pain and cramping is from metformin has stopped and will see how he is over weekend also , will change to basaglar from / 30 after calculatio ns, 0.8 X 120 total units is 96 units of basaglar but i feel this is too much will use 50 u at hs and see how he does [id number] Ricardo Jamil [facility] [address] [place] [address], [place] [address] 04/13/2018 14:12:44 04/13/2018 19:58:12 Diverticulitis of sigmoid colon 319858804 K57.32 cipro flagyl has only been started yesterday still feels awful i am worried that he has an abcess so we will ;order a CT scan and prob refer to surgeon Type 2 roc betes mellitus 21061440 E11.65 currently poorly controlled due to severe abdomn diverticul itis cont to provide coverage [id number] Ricardo Jamil DO [facility] [address] [facility], [place] [address] 04/22/2018 14:53:03 04/26/2018 11:00:31 Diverticulitis 931437491 K57.92 no further abx recommende d at this point will recommend seeing GI to r/o any other GI cause of abdominal pain Abdominal pain 92592993 R10.9 most likely related to bladder at this point rather than ongoing diverticul itis based on CT Malignant neoplasm of urinary bladder 793029081 C67.9 has f/u with further testing before seeing uro Type 2 roc betes mellitus 47585679 E11.42 will do 20 units at each meal + sliding scale correction 1-2 hours post prandial doing 50 units of basaglar BID off metformin for possible GI side effects [id number] Ricardo Jamil [facility] [address] [facility],[place] [address] 06/01/2018 11:39:59 06/01/2018 12:30:33 Type 2 diabetes mellitus 45018089 E11.65 currently poorly controlled a1c is 9.2 restart metformin 500 bid be careful with this Essential hypertension 85864555 I10 stable overall no major issues Neoplasm o f urinary bladder 374853000 D49.4 here for chk up followed by urology and will need to go back to complete the bcg tx but not during diverticul itis flare Chronic ki dney disease 576905450 N18.9 stop lisinopril gfr was89 now is down to 34 poss due to mitamycin and or bcg recheck cmp in 3 weeks [id number] Ricardo Jamil [facility] [address] [facility] [address],[place] [address] 06/24/2018 09:01:55 06/24/2018 09:44:27 Depressive disorder 99920008 F32.1 will try mirtazapin e and hopefully also improve his sleep as he is quite sleep deprived Type 2 roc betes mellitus 41887405 E11.65 currently poorly controlled a1c is 8.9 restart metformin 500 bid be careful with this re kidney function Essential hypertension 05740014 I10 stable overall no major issues Chronic re nal insufficiency 695410352 N18.9 recent creat at 2.1 was 1.3 in april was 1.7 in may metformin was just started couple weeks ago [id number] Ricardo Jamil [facility] [address] [facility] [address],[place] [address] 07/11/2018 13:26:50 07/11/2018 14:55:36 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 will advise we try antihistam franco and prednisone if urol unwilling then I will Essential hypertension 59367990 I10 stable overall no major issues Type 2 roc betes mellitus 35271573 E11.65 still poorly controlled a1c is 8.9 await next results Ricardo Jamil [facility] [address] [facility],[place] [address] 08/09/2018 14:30:02 08/09/2018 15:27:32 Mitomycin adverse reaction 514032440 T45.1X5D will advise we try antihistam franco and prednisone given that it helped tremendous ly was [facility] he could restart the prednisone as it made him feel better and also was helping with the cystitis and also start the claritin agian Type 2 roc betes mellitus 13184517 E11.65 i now taking 60 u of lantus in am and 20 u lispro + sliding scale we will keep this for now \also will cont to track gluc also will start metformin 500 bid this weekend Ricardo Jamil DO [facility] [address] [facility],[place] [address] 08/24/2018 09:47:51 08/24/2018 10:39:05 Type 2 diabetes mellitus 44989721 E11.65 a1c is now 7.9 taking 60 u of lantus in am and 20 u lispro + sliding scale \also will cont to track gluc metformin 500 bid this weekend Essential hypertension 03036115 I10 stable overall no major issues Recurrent urinary tract infection N39.0 has serratia growing but remains asymptomat ic prob is colonizati on is holding on the vantin per their instructio ns until unless he gets symptoms [id number] Ricardo Jamil [facility] [address] [facility],[place] [address] 09/23/2018 12:11:48 09/23/2018 14:23:16 Type 2 diabetes mellitus 12373674 E11.65 a1c is now 8.5 was 7.9 still on PREDNISONE 20mg taking 60 u of lantus in am and 30 u lispro + sliding scale \also will cont to track gluc metformin 1000 bid this weekend Essential hypertension 83914015 I10 stable overall no major issues Tobacco user 515571199 Z 72.0 doesnt want to quit at this time Neoplasm o f urinary bladder 888711533 D49.4 here for chk up followed by urology and will need to go back to complete the bcg tx but not during diverticul itis flare Basal cell carcinoma of scalp [id number] C44.41 [id number] Ricardo Jamil [facility] Internal Medicine [address] [facility] [address],[place] [address] 10/31/2018 13:45:13 10/31/2018 14:29:33 Type 2 diabetes mellitus 10027033 E11.65 a1c is now 8.9 was 8.5 still on PREDNISONE 17.5 mg taking 60 u of lantus in am and 30 u lispro + sliding scale \also will cont to track gluc metformin 1000 bid this weekend we have started to reduce the dose of the pred Essential hypertension 80243520 I10 stable overall no major issues Active or passive immunization 876289212 Z23 have asked him to get shingles and pneumovax [id number] Ricardo Jamil [facility] Internal Medicine [address] [facility], [place] [address] 12/14/2018 15:02:41 12/14/2018 15:55:13 Recurrent urinary tract infection 071565673 N39.0 has serratia growing and has been having symptoms will treat with cipro 500 bid for 10 Type 2 roc betes mellitus 13036585 E11.65 a1c was 8.5 still on PREDNISONE 7.5 mg taking 60 u of lantus in am and 30 u lispro + sliding scale \also will cont to track gluc metformin 1000 bid this weekend we have continued to reduce the dose of the pred Lower urin saul tract obstructive syndrome 24422957 N13.9 cont to void then [place] [id number] Ricardo Jamil [facility] Internal Medicine [address] [facility], [place] [address] 04/18/2019 14:47:11 04/18/2019 15:20:35 Neoplasm of urinary bladder 832848703 D49.4 tolerating the ileal loop after the cystectomy last month Type 2 roc betes mellitus 49959525 E11.65 a1c was 7.3 and has been [...] the dose of the pred Essential hypertension 23474554 I10 stable overall no major issues [id number] Ricardo Jamil [facility] Internal Medicine [address] [facility],[place] [address] 07/25/2019 13:41:19 07/25/2019 14:31:29 Essential hypertension 46470985 I10 stable overall no major issues and remains stable Type 2 roc betes mellitus 57523969 E11.65 a1c is still 7.3 and has [...] O GET HIM TRULICITY AND WILL ORDER [id number] Ricardo Jamil DO [facility] Internal Medicine [address] [facility],[place] [address] 10/23/2019 13:44:30 10/23/2019 14:31:21 Type 2 diabetes mellitus 88140962 E11.65 Doing well w/ trulicity Has been [...] the dose of the pred Essential hypertension 75533948 I10 stable overall no major issues and remains stable [id number] Ricardo Jamil DO [facility] Internal Medicine [address] 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,[place] [address] 03/12/2020 13:46:41 03/12/2020 14:55:06 Hydronephrosis 96153740 N13.30 s/p renal stone removal with infection etc on iv zosyn at home Type 2 roc betes mellitus 03990371 E11.65 off trulicity and now back on the lantus 60 u and seems to be having better numbers Metabolic acidosis 02268 009 E87.2 [id number] Ricardo Jamil DO [facility] Internal Medicine [address] [facility],[place] [address] 04/17/2020 08:14:10 04/17/2020 10:48:03 Diabetic peripheral neuropathy 844494730 E11.40 legs are stable and are staying numb checks every night no evid of ulers or callous formation discussed agian improtance of keeping a good eval of his feet daily Essential hypertension 87728445 I10 stable overall no major issues and remains stable and has been having it checked at hospital and is wnl no change in medication s remains compliant and no issues with med Type 2 roc betes mellitus 19905552 E11.65 the lantus 60 u and seems [...] recent illness Neoplasm o f urinary bladder 424706352 D49.4 tolerating the ileal loop after the cystectomy last month has been stable except for the stone Chronic ki dney disease 399732395 N18.9 stopped the lisinopril months ago as gfr was down to 34 poss due to mitamycin and or bcg recheck cmp showed the gfr remained around 34 Hypercholesterolemia 136 18410 E78.00 rosuvastat in has been working well and the results are reviewed in detail encouraged to cont good diet now that he has gained some wgt back [id number] Ricardo Jamil DO [facility] Internal Medicine [address] [facility],[place] [address] 05/21/2020 15:00:38 05/21/2020 15:40:38 Type 2 diabetes mellitus 40142568 E11.9 stable at 6.8% on insulin, takes medication as prescribed Essential hypertension 12338678 I10 BP fine today at 130/68 Pre-surger y evaluation 259111540 Z01.818 based on history and physical and evaluation of patient chronic medical conditions , the patient is cleared for surgery [id number] Ricardo Jamil [facility] Internal Medicine [address] [facility],[place] [address] 07/08/2020 13:43:36 07/08/2020 14:37:35 Type 2 diabetes mellitus 07769510 E11.65 he is having elevated numbers at times has not gotten his lab for the a1c yet due to admin error he will get this done we will get an a1c and the urine microalb glucose at home and it is up an down and not well controlled at times Essential hypertension 38436991 I10 stable overall no major issues and remains stable and has been having it checked at hospital and is wnl no change in medication s remains compliant and no issues with med Diabetic p eripheral neuropathy 421513918 E11.40 legs are stable and are staying numb checks every night no evid of ulers or callous formation discussed agian improtance of keeping a good eval of his feet daily [id number] Ricardo Jamil [facility] Internal Medicine [address] [facility],[place] [address] 12/02/2020 12:17:16 12/02/2020 15:05:13 Malignant neoplasm of urinary bladder 831177543 C67.9 Depressive disorder 4341 9007 F32.1 will try mirtazapin e and hopefully also improve his sleep as he is quite sleep deprived Type 2 roc betes mellitus 01959072 E11.65 he is having elevated numbers at times A1C Is 6.6 glucose at home and it is up an down and not well controlled at times Fever 049608740 R50.9 not sure of source nos specific symptoms or signs [id number] Ricardo Jamil [facility] Internal Medicine [address] [facility] [address],[place] [address] 03/07/2021 10:19:22 03/07/2021 14:14:31 Essential hypertension 02869492 I10 stable overall no major issues and remains stable and has been having it checked at hospital and is wnl no change in medication s remains compliant and no issues with med Type 2 roc betes mellitus 85280558 E11.65 he is having elevated numbers at times A1C Is 7.4 was 6.6 glucose at home and it is up an down and not well controlled at times Chronic ki dney disease 999531869 N18.9 stopped the lisinopril months ago as gfr was down to 34 poss due to mitamycin and or bcg recheck cmp showed the gfr remained around 34 Diabetic p eripheral neuropathy 757996689 E11.40 legs are stable and are staying numb checks every night no evid of ulers or callous formation discussed triciaian improtance of keeping a good eval of his feet daily Type 2 roc betes mellitus without complication 945968236 E11.9 [id number] Ricardo Jamil [facility] Internal Medicine [address] [facility],[place] [address] 06/16/2021 10:21:09 06/16/2021 11:08:59 Type 2 diabetes mellitus 08479271 E11.65 he is having elevated numbers at times A1C is 7.1 was 7.4 was 6.6 glucose at home and it is up an down and not well controlled at times Essential hypertension 23169485 I10 stable overall no major issues and remains stable and has been having it checked at hospital and is wnl no change in medication s remains compliant and no issues with med Malignant neoplasm of urinary bladder 511416636 C67.9 currently stable Depressive disorder 5704 9007 F32.1 will try mirtazapin e and hopefully also improve his sleep as he is quite sleep deprived Type 2 roc betes mellitus without complication 547002783 E11.9 a1c is 7.1 [id number] Ricardo Jamil [facility] Internal Medicine [address] [facility],[place] [address] 11/26/2021 15:40:58 11/26/2021 16:31:21 Type 2 diabetes mellitus 38077566 E11.65 he is having elevated numbers at times A1C is 6.8 and was 7.1 was 7.4 was 6.6 glucose at home and it is up an down and not well controlled at times Essential hypertension 62374938 I10 stable overall no major issues and remains stable and has been having it checked at hospital and is wnl no change in medication s remains compliant and no issues with med Advance care planning 71 5536038 Z71.89 done Active or passive immunization 829720104 Z23 patient advised he is due for tdap, pneu & shingles Edema of l ower extremity 974113854 R60.0 [id number] [facility] [address] [facility],[place] [place] [facility] [place] [address] 02/20/2022 09:13:55 02/20/2022 16:32:08 Essential hypertension 18628758 I10 stable overall no major issues and remains stable and has been having it checked at hospital and is wnl no change in medication s remains compliant and no issues with med Type 2 roc betes mellitus 94773783 E11.65 he is having elevated numbers at times A1C is 7.8 but was on steroids 6.8 and was 7.1 was 7.4 was 6.6 glucose at home and it is up an down and not well controlled at times Chronic ki dney disease 428851747 N18.9 stopped the lisinopril months ago as gfr was down to 34 poss due to mitamycin and or bcg recheck cmp showed the gfr remained around 34 COVID-19 145542149 U07.1 improved [id number] [facility] [address] [facility],[place] [address] 08/05/2022 13:37:30 08/05/2022 14:18:12 Essential hypertension 96955148 I10 stable overall no major issues and remains stable and has been having it checked at hospital and is wnl no change in medication s remains compliant and no issues with med Chronic ki dney disease 928274942 N18.9 stopped the lisinopril months ago as gfr was down to 34 poss due to mitamycin and or bcg recheck cmp showed the gfr remained around 30 Type 2 roc betes mellitus 54725764 E11.65 he is having elevated numbers at times A1C is 7.8 but was on steroids 6.8 and was 7.1 was 7.4 was 6.6 glucose at home and it is up an down and not well controlled at times Type 2 roc betes mellitus without complication 753625447 E11.9 see above Depressive disorder 5302 6894 F32.1 will try mirtazapin e and hopefully also improve his sleep as he is quite sleep deprived Malignant neoplasm of urinary bladder 399407502 C67.9 currently stable [id number] [facility] [address] [facility] [address] 01/25/2023 09:24:09 01/25/2023 16:46:16 Hypercholesterolemia 97664662 E78.00 rosuvastat in has been working well and the results are reviewed in detail encouraged to cont good diet now that he has gained some wgt back Type 2 roc betes mellitus 44844469 E11.65 he is having elevated numbers at times A1C is 7.8 but was on steroids 6.8 and was 7.1 was 7.4 was 6.6awaitin g to feel better to get labglucose at home and it is up an down and not well controlled at times Essential hypertension 24283833 I10 stable overall no major issues and remains stable but has not chkd at home prior and has been having it checked at hospital and is wnl no change in medication s remains compliant and no issues with med [id number] Ricardo EmiliaAbdon Jamil, [facility] Internal Medicine [address] [facility],[place] [address] 05/07/2023 08:03:22 05/07/2023 13:42:13 Hypercholesterolemia 92366222 E78.00 rosuvastat in has been working well and the results are reviewed in detail encouraged to cont good diet now that he has gained some wgt back Essential hypertension 15887468 I10 stable overall no major issues and remains stable but has not chkd at home prior and has been having it checked at hospital and is wnl no change in medication s remains compliant and no issues with med Type 2 roc betes mellitus 39658824 E11.65 he is having elevated numbers at times A1C is 7.2 but was on steroids 6.8 and was 7.1 was 7.4 was 6.6awaitin g to feel better to get labglucose at home and it is up an down and not well controlled at times Chronic ki dney disease 836052498 N18.9 stopped the lisinopril months ago as gfr was down to 34 poss due to mitamycin and or bcg recheck cmp showed the gfr remained around 30 [id number] Ricardo Jamil DO [facility] Internal Medicine [address] [facility],[place] [address] 08/09/2023 15:03:19 08/09/2023 16:24:07 Type 2 diabetes mellitus without complication 029384085 E11.9 a1c is 7.8 n was 7.2 see below Essential hypertension 56821477 I10 stable overall no major issues and remains stable but has not chkd at home prior and has been having it checked at hospital and is wnl no change in medication s remains compliant and no issues with med Diabetic p eripheral neuropathy 444058447 E11.40 legs are stable and are staying numb checks every night no evid of ulers or callous formation discussed agian improtance of keeping a good eval of his feet daily Depression screening 171 409284 Z13.31 Negative Screening Type 2 roc betes mellitus 49523562 E11.65 he is having elevated numbers at times A1C is 7.8 was 7.2 but was on steroids 6.8 and was 7.1 was 7.4 was 6.6awaitin g to feel better to get labglucose at home and it is up an down and not well controlled at times [id number] Ricardo Jamil DO [facility] Internal Medicine [address] [facility],[place] [address] 11/17/2023 11:27:46 11/17/2023 13:22:49 Adult health examination 372572204 Z00.00 stable despite current med issues Screening for cardiovascular system disease 329497961 Z13.6 not due until apr Depressive disorder 5358 9007 F32.1 refilled the bupropion Type 2 roc betes mellitus without complication 282088342 E11.9 a1c is 7.2 we will have him split the dose of basaglar to 40 and 20 [id number] Ricardo Jamil [facility] Internal Medicine [address] [facility],[place] [address] 03/06/2024 11:14:33 03/06/2024 12:01:39 Hypercholesterolemia 57007798 E78.00 rosuvastat in has been working well and the results are reviewed in detail encouraged to cont good diet now that he has gained some wgt back Type 2 roc betes mellitus 50676903 E11.9 Chronic ki dney disease 907075234 N18.9 stopped the lisinopril months ago as gfr was down to 34 poss due to mitamycin and or bcg recheck cmp showed the gfr remained around 30 Edema of l ower extremity 712479843 R60.0 stable Essential hypertension 24188939 I10 stable overall no major issues and remains stable but has not chkd at home prior and has been having it checked at hospital and is wnl no change in medication s remains compliant and no issues with med [id number] Ricardo Jamil, DO [facility] [address] [facility] [address],[place] [address] 06/05/2024 11:39:43 06/05/2024 14:15:33 Hypercholesterolemia 99231311 E78.00 rosuvastat in has been working well and the results are reviewed in detail encouraged to cont good diet now that he has gained some wgt back Type 2 roc betes mellitus 64392753 E11.9 a1c is 7.3 per his freestyle Chronic ki dney disease 250046743 N18.9 stopped the lisinopril months ago as gfr was down to 34 poss due to mitamycin and or bcg recheck cmp showed the gfr remained around 30 Essential hypertension 63817371 I10 stable overall no major issues and remains stable but has not chkd at home prior and has been having it checked at hospital and is wnl no change in medication s remains compliant and no issues with med Diabetic p eripheral neuropathy 108502356 E11.40 legs are stable and are staying numb checks every night no evid of ulers or callous formation discussed agian improtance of keeping a good eval of his feet daily Type 2 roc betes mellitus without complication 421157429 E11.9 a1c is 7.2 we will have him split the dose of basaglar to 40 and 20 Health Concerns Section Related Observation LastModified by Organization Detai ls LastModified Time None Recorded Concern Status LastModified by Organization Details LastModified Time None Recorded Advance Directives Directive None Recorded Payers Encounter Date Sequence Insurance Name Policy Number Policy Ruiz Covered Member ID Ruiz Member ID Guarantor Name 05/07/2023 1 [facility] - MEDICARE PREFERRED (MEDICARE REPLACEMENT HMO) [address] N[address]rella [id number] 1 Nico Estrella 08/09/2023 1 [employer] - MEDICARE PREFERRED (MEDICARE REPLACEMENT HMO) [address] Estrella [id number] 1 Nico Estrella 11/17/2023 1 [employer] - MEDICARE PREFERRED (MEDICARE REPLACEMENT HMO) [address] Estrella [id number] 1 Nico Estrella 03/06/2024 1 [employer] - MEDICARE PREFERRED (MEDICARE REPLACEMENT HMO) [address] Estrella [id number] Nico Estrella 06/05/2024 1 [employer] - MEDICARE PREFERRED (MEDICARE REPLACEMENT HMO) [address]rella [id number] 1 Nico Estrella Notes Date Note Type Note Provider Name and Address Organization Details Recorded Time 4 text/htm l Care Management - DiabetesReported [...] patient consent during current pandemic here for shanae nd is feeling ok relates glucose has been up lately Ricardo Jamil, DO [address] [facility], [place], [address], [facility] 05/07/2023 10:17:29 4 text/htm l [...] confusion; no headaches; no fatigue here for rechk and is doing ok tired a lotfell the other day and had to crawl in order to get to his vehicle to get up Ricardo Jamil, DO [address] [facility], [place], [address], [facility] 08/09/2023 15:34:58 4 text/htm l [...] bathroom/shower; good lighting in the home Ricardo Jamil DO [address] [place] [address], [phone], [facility] 11/17/2023 12:19:20 4 text/htm l [...] caused his gluc to go up Ricardo Jamil DO [address] [place] [address], [phone], [facility] 03/06/2024 12:00:41 5 text/htm l Care Management - DiabetesReported [email or web address] [...] confusion; no headaches; no fatigue here for rechk and is slowing downno cp breathing is oksleep fairappetite is ok Ricardo Jamil, DO [address] [facility], [place], [address], [facility] 06/05/2024 12:16:43
[2024-09-08 14:05] LABS: Estimated Average Glucose 143 mg/dL; Hemoglobin A1c % 6.6 % (<6.0)
[2024-09-08 14:19] LABS: Alanine Aminotransferase 45 U/L (0-40); Albumin Level 3.9 g/dL (3.5-5.0); Alkaline Phosphatase 48 U/L (39-117); Anion Gap 9 (12-20); Aspartate Amino Transferase 38 U/L (5-37); Bilirubin Total 0.5 mg/dL (0.0-1.0); Blood Urea Nitrogen 53 mg/dL (9-16); Calcium 9.3 mg/dL (8.4-10.2); Carbon Dioxide 23 mmol/L (22-29); Chloride 114 mmol/L (96-108); Cholesterol 129 mg/dL (<200); Estimated Glomerular Filt Rate 31; Glucose Random 148 mg/dL (60-115); HDL Cholesterol 26 mg/dL (>40); LDL Cholesterol Calculated 48 mg/dL (<100); Potassium 4.2 mmol/L (3.3-5.1); Sodium 142 mmol/L (135-145); Total Protein 6.4 g/dL (6.5-8.0); Triglycerides 275 mg/dL (<150)
== END 2024-09-08 09:46 | disposition home or self-care (01) ==
LOC: HO.MANLDS 09:45
PROVIDERS: Visit Provider Internal Medicine
DX: E11.65 Type 2 diabetes mellitus with hyperglycemia (principal)
CPT/HCPCS: 36415; 80053; 80061; 83036

== ENCOUNTER 2024-12-12 11:41 | Outpatient (REF) | payer MEDICARE, SELFPAY ==
[2024-12-12 13:29] LABS: Hemoglobin A1C 189.8229 umol/L; Total Hemoglobin (HGBA1C) 3844.2955 umol/L
--- OUTSIDE RECORDS SUMMARY | 2024-12-12 14:13 | XMS_ITS | Encounter Summary ---
Author Organization [facility] Address [address] [place] [address] Phone Care Team Providers Care Medicine Aide Name Role Phone Terry Ricardo Nieto DO Primary Care Provider [phone] Self-Referred, Patient Unavailable Unavailab Atilio Raphael MD Unavailable [phone] Ricardo Stewart DO Unavailable Encounter Details Date Type Department Care Team (Late st Contact Info) Description 07/28/2018 Procedure Pass [facility] Radiology [address] [place] [address] Social History Tobacco Use Types Packs/Day Years Used Date Smoking Tobacco: Former Cigarettes 2 60 0 10/10/1957 - 10/10/2017 Smokeless Tobacco: Never Alcohol Use Standard Drinks/Week Comments No 3 (1 standard drink = 0.6 oz pur e alcohol) vodka - none recently Sex and Gender Information Value Date Recorded Sex Assigned at Male 12/27/2017 2:28 PM EDT Legal Sex Male 10:08 PM EDT Gender Identity Male 12/27/2017 2:28 PM EDT Sexual Orientation Straight 12/27/2017 2: 28 PM EDT documented as of this encounter Plan of Treatment Not on file documented as of this encounter Visit Diagnoses Not on filedocumented in this encounter Additional Health Concerns Infection Onset Date Last Indicated Resolved Time CoV-Risk Comment:Per note documentation 02/12/2020 02/17/2020 0 10:23 AM EST documented as of this encounter Care Teams Medicine Aide Relationship Specialty Start Date End Date Ricardo Stewart DO [email or web address] PCP - General 01/19/17 Self-Referred, Patient 05/27/18 Atilio Louie MD [address] [place] [address] [address] [place] [address] [email or web address] 05/27/18 Ricardo Stewart DO [address] [place] [address] [email or web address] Insurance Assigned Provider 08/09/19 documented as of this encounter Additional Source Comments The information contained in this document represents components of the legal health record. It is not the complete legal health record.[facility]
--- OUTSIDE RECORDS SUMMARY | 2024-12-12 14:13 | XMS_ITS | Clinical Summary ---
Author Organization [facility] Address [address] [facility] 7 [place] [address] Care Team Providers Care Pattern Grader Supervisor Name Role Phone Unavailable Primary Care Provider [...] SDOH Screening 1945 Alcohol/Substance Use Screening 1956 DTaP/Tdap/Td Vaccines (1 - Tdap) 12/05/1963 Pneumococcal Vaccine: 50+ Ye ars (1 of 2 - PCV) 12/05/1963 Zoster Vaccines (1 of 2) 1994 RSV Patients and Pa tients Aged 60 years or older (1 - 1-dose 75+ series) 12/05/2019 Tobacco Screening 10/18/2024 10/19/2023 COVID-19 Vaccine (2 - 2024-2 6 season) 2024 06/19/2020 Influenza Vaccine (#1) 2024 Dental X-Ray: Full Mouth 09/02/2026 09/02/2023 HIB [...] patient's age to complete this topic Meningococcal B Vaccine Aged Out No l onger eligible based on patient's age to complete [...]
--- OUTSIDE RECORDS SUMMARY | 2024-12-12 14:13 | XMS_ITS | Encounter Summary ---
Author Organization [facility] Address [address] [place] [address] Phone Care Team Providers Care Foundation Relations Manager Name Role Phone Terry Ricardo Nieto DO Primary Care Provider [phone] Self-Referred, Patient Unavailable Unavailab Atilio Raphael MD Unavailable Ricardo Stewart DO Unavailable Encounter Details Date Type Department Care Team (Late st Contact Info) Description 08/01/2018 Procedure Pass [facility] [address] [place] [address] Social History Tobacco Use Types Packs/Day Years [...] documented as of this encounter Care Teams Foundation Relations Manager Relationship Specialty Start Date End Date Ricardo Stewart DO [email or web address] PCP - General 01/19/17 Self-Referred, Patient 05/27/18 Atilio Louie MD [address] [place] [address] [address] [place] [address] [email or web address] Urology 05/27/18 Ricardo Stewart DO [address] [place] [address] [email or web address] Insurance Assigned Provider 08/09/19 documented as of this encounter Additional Source Comments The information contained in this document represents components of the legal health record. It is not the complete legal health record.[facility]
--- OUTSIDE RECORDS SUMMARY | 2024-12-12 14:13 | XMS_ITS | Encounter Summary ---
Author Organization [facility] Address [address] [place] [address] Phone Care Team Providers Care Assembler Caterpillar Spider Name Role Phone Ricardo Stewart Primary Care Provider [phone] Self-Referred, Patient Unavailable Unavailab Atilio Raphael MD Unavailable [phone] Ricardo Stewart DO Unavailable Encounter Details Date Type Department Care Team (Latest Contact Info) Description 06/23/[address] [facility] [address] [place] [address] Atilio Louie MD [address] [place] [address] [email or web address] Routine general medical examination at a health care facility (Primary Dx) Social History Tobacco Use Types Packs/Day Years Used Date Smoking Tobacco: Former Cigarettes 0 10/10/1957 - 10/10/2017 Smokeless Tobacco: Never [...] on file documented as of this encounter Results * Miscellaneous lab test (06/23/2018 10:02 AM EDT) TESTS REQUESTED MODIFIED ACID FAST STAIN [facility] SPECIMEN/TUBE TYPE URINE [facility] REQUEST RECEIVED Request received. A separate order for the requested test will be generated by the laboratory. [facility] Blood 06/23/2018 10:0 2 AM EDT 06/23/2018 10:05 AM EDT us Atilio Louie MD LAB BLOOD ORDERABLES Final Re sult [facility] [address] [place] [address] documented in this encounter Visit Diagnoses Diagnosis Routine general medical examination at a health care facility- Primary documented in this encounter Additional Health Concerns Infection Onset Date Last Indicated Resolved Time CoV-Risk Comment:Per note documentation 02/12/2020 02/17/2020 0 10:23 AM EST documented as of this encounter Care Teams Assembler Caterpillar Spider Relationship Specialty Start Date End Date Ricardo Stewart DO [email or web address] PCP - General 01/19/17 Self-Referred, Patient 05/27/18 Atilio Louie MD [address] [place] [address] [address] [place] [address] [email or web address] Urology 05/27/18 Ricardo Stewart DO [address] [place] [address] [email or web address] Insurance Assigned Provider 08/09/19 documented as of this encounter Additional Source Comments The information contained in this document represents components of the legal health record. It is not the complete legal health record.[facility]
--- OUTSIDE RECORDS SUMMARY | 2024-12-12 14:13 | XMS_ITS | Encounter Summary ---
Author Organization [facility] Address [address] [place] [address] Phone Care Team Providers Care Meal Miller Name Role Phone Terry Ricardo Nieto DO Primary Care Provider [phone] Self-Referred, Patient Unavailable Unavailab Atilio Raphael MD Unavailable [phone] Ricardo Stewart DO Unavailable Encounter Details Date Type Department Care Team (Late st Contact Info) Description 08/01/[address] [facility] Periop [address] [place] [address] Social History Tobacco Use Types Packs/Day Years [...] documented as of this encounter Care Teams Meal Miller Relationship Specialty Start Date End Date Ricardo Stewart DO [email or web address] PCP - General 01/19/17 Self-Referred, Patient 05/27/18 Atilio Louie MD [address] [place] [address] [address] [place] [address] [email or web address] Urology 05/27/18 Ricardo Stewart DO [address] [place] [address] [email or web address] Insurance Assigned Provider 08/09/19 documented as of this encounter Additional Source Comments The information contained in this document represents components of the legal health record. It is not the complete legal health record.[facility]
--- OUTSIDE RECORDS SUMMARY | 2024-12-12 14:13 | XMS_ITS | Encounter Summary ---
Author Organization [facility] Address [address] [place] [address] Phone Care Team Providers Care Oracle Bpm Developer Name Role Phone Boazhebert Ricardo Emilia Primary Care Provider [phone] Self-Referred, Patient Unavailable Unavailab Atilio Raphael MD Unavailable [phone] Ricardo Stewart DO Unavailable Encounter Details Date Type Department Care Team (Late st Contact Info) Description 04/06/2017 Ancillary Orders [facility], X-Ray - [address] [address] Fernando Nimco, JUAN DANIEL [address]aston. [address] [place] [address] Pain Social History Tobacco Use Types Packs/Day Years Used Date Smoking Tobacco: Never Assessed Sex and Gender Information Value Date Recorded Sex Assigned at Male 12/27/2017 2:28 PM EDT Legal Sex Male 10:08 PM EDT Gender Identity Male 12/27/2017 2:28 PM EDT Sexual Orientation Straight 12/27/2017 2: 28 PM EDT documented as of this encounter Plan of Treatment Not on file documented as of this encounter Results * XR FOOT 3 OR MORE VIEWS (RIGHT) (04/06/2017 12:31 PM EST) Anatomical Region Laterality Modality Foot Right Radiographic Nichelle ging 04/06/2017 1:07 PM EST Impressions 04/06/2017 1:09 PM EST Minor DJD. No acute bony abnormalities/injuries POS [id number] Narrative 04/06/2017 1:09 PM EST 3 views. No comparison No evidence of trauma, tumor or infection Mild hallux valgus. Minimal degenerative changes in the first MTP joint and the dorsal midfoot. Procedure Note Mike Perez MD - 04/06/2017 3 views. No comparison No evidence of trauma, tumor or infection Mild hallux valgus. Minimal degenerative changes in the first MTP joint and the dorsalmidfoot. IMPRESSION: Minor DJD. No acute bony abnormalities/injuries POS [id number] July Fernando FRANCES IMG XR LOWER EXTREMITY Final Result documented in this encounter Visit Diagnoses Diagnosis Pain Generalized pain Pain Generalized pain documented in this encounter Additional Health Concerns Infection Onset Date Last Indicated Resolved Time CoV-Risk Comment:Per note documentation 02/12/2020 02/17/2020 0 10:23 AM EST documented as of this encounter Care Teams Oracle Bpm Developer Relationship Specialty Start Date End Date Ricardo Stewart DO PCP - General 01/19/17 Self-Referred, Patient 05/27/18 Atilio Louie MD [address] [place] [phone] [email or web address] Urology 05/27/18 Ricardo Stewart DO [address] [place] [address] [email or web address] Insurance Assigned Provider 08/09/19 documented as of this encounter Additional Source Comments The information contained in this document represents components of the legal health record. It is not the complete legal health record.[facility]
--- OUTSIDE RECORDS SUMMARY | 2024-12-12 14:13 | XMS_ITS | Encounter Summary ---
Author Organization [facility] Address [address] [place] [address] Phone Care Team Providers Care Clean Room Operator Name Role Phone Boazhebert Ricardo Nieto DO Primary Care Provider [phone] Self-Referred, Patient Unavailable Unavailab Atilio Raphael MD Unavailable [phone] Ricardo Stewart DO Unavailable Reason for Referral * MRI/CAT Scan - Closed Specialty Diagnoses / Procedures Referred By Shobha martini Referred To Contact Diagnoses Malignant neoplasm of overlapping sites of bladder Procedures MRI Abdomen Outside With Interpretation Or Consult Atilio Louie MD Phone: tel: fax: mailto:[email or web address] Referral ID Status Reason Start Date Expiration Date Visits Re quested Visits Authorized [id number] Closed 07/28/2018 07/28/2019 1 1 Encounter Details Date Type Department Care Team (Latest Contact Info) Description 07/28/2018 Transcribe Orders [facility] [address] [place] [address] Troy Allen [address] [place] [address] [email or web address] Malignant neoplasm of overlapping sites of bladder (Primary Dx) Social History Tobacco Use Types [...] documented as of this encounter Results * MRI Abdomen Outside With Interpretation Or Consult (07/28/2018 7:45 AM EDT) 07/28/2018 7:45 AM EDT Impressions [facility] - 07/28/2018 3:27 PM EDT 1. No focal lesions in the prostate gland to suggest clinically significant prostate cancer. 2. Diffuse mural enhancement and wall thickening involving the urinary bladder, likely cystitis which may be related to intravesical BCG/mitomycin. 3. Bilateral hydroureter. Distal loop of the right ureteral stent is in the right distal ureter. NOTE: PI-RADS (Prostate Imaging Reporting and Data System) assessment uses a 5 point scale based on the likelihood (probability) that a combination of multi-parametric MRI findings on T2W, DWI, and DCE correlates with the presence of a clinically significant cancer for each lesion in the prostate gland. A clinically significant cancer is defined on pathology/histology as [place] score > or equal to 7 (including 3+4 or 4+3 and/or volume > 0.5cc), and/or extra-prostatic extension (EPE). ATTESTATION: Darshana Rodarte, as teaching physician have reviewed the images, if any, for this patient's exam, and if necessary, have edited the report originally created by Randy Dawson. Narrative [facility] - 07/28/2018 3:27 PM EDT OUTSIDE STUDY SECOND OPINION CONSULTATION The imaging reviewed below has been performed at an outside institution. At the request of the patient's referring provider, we have been asked to interpret examination(s) pertinent to facilitating current patient care at [facility]. [facility] are not responsible for image quality, completeness of this examination, or accuracy of patient identity. OUTSIDE INSTITUTION: [facility] MRI STUDY ACQUISITION DATE: 07/18/2018, 7:28PM Reason for exam (per EHR order): [MALIGNANCY] BLADDER (KNOWN ACT MALIG UNDER [place]; BLADDER CANCER) Additional clinical information obtained from the EHR: 72-year-old man with a history of high-grade bladder cancer status post TR DTM 10/2012 with intravesical mitomycin and BCG, complicated by hydronephrosis with bilateral stents placed in 12/2017. Now with concern for BCG cystitis versus severe chemotherapy reaction. PSA: None available PSA density: None available Biopsy results: None Prior therapy: Intravesical BCG and mitomycin TECHNIQUE: Multi-planar, multi-parametric (including T2, diffusion, and T1-weighted) 3T MRI of the pelvis, focused on the prostate, without and with intravenous contrast. Oral contrast: None. Intravenous contrast: 22 ml, Dotarem COMPARISON: PET/CT from 06/16/2018. CT abdomen/pelvis from 07/26/2018. FINDINGS: Prostate Gland Size: 6.2 x 5.7 x 4.7 cm, volume 86.4 mL. PERIPHERAL ZONE: Patchy areas of low T2 signal. TRANSITIONAL ZONE: Changes of glandular and stromal hyperplasia (BPH). Postsurgical changes from prior transurethral resection of the prostate. Seminal Vesicles: Normal. Bladder: There is diffuse mucosal bladder wall hyperenhancement and perivesical fat stranding. Diverticulum is noted along the posterior wall of the urinary bladder. There is bilateral hydroureteronephrosis. Distal loop of the left ureteral stent is in the urinary bladder. Distal loop of the right ureteral stent is within the right distal ureter. Lymph Nodes: Left iliac lymph node (45:11) measures 0.9 cm. Right pelvic sidewall lymph node (45:19) measures 0.6 cm. Vessels: Normal. Bones: No focal osseous lesions. Colonic diverticulosis is present. Procedure Note Darshana Erickson MD, PhD - 07/28/2018 OUTSIDE STUDY SECOND OPINION CONSULTATION The imaging reviewed below has been performed at an outside institution. At the request of the patient's referring provider, we have been asked to interpret examination(s) pertinent to facilitating current patient care at [facility]. [facility] are not responsible for image quality, completeness of this examination, or accuracy of patient identity. OUTSIDE INSTITUTION: [facility] MRI STUDY ACQUISITION DATE: 07/18/2018, 7:28PM Reason for exam (per EHR order): [MALIGNANCY] BLADDER (KNOWN ACT MALIG UNDER [place]; BLADDER CANCER) Additional clinical information obtained from the EHR: 72-year-old man with a history of high-grade bladder cancer status post TR DTM 10/2012 with intravesical mitomycin and BCG, complicated by hydronephrosis with bilateral stents placed in 12/2017. Now with concern for BCG cystitis versus severe chemotherapy reaction. PSA: None available PSA density: None available Biopsy results: None Prior therapy: Intravesical BCG and mitomycin TECHNIQUE: Multi-planar, multi-parametric (including T2, diffusion, and T1-weighted) 3T MRI of the pelvis, focused on the prostate, without and with intravenous contrast. Oral contrast: None. Intravenous contrast: 22 ml, Dotarem COMPARISON: PET/CT from 06/16/2018. CT abdomen/pelvis from 07/26/2018. FINDINGS: Prostate Gland Size: 6.2 x 5.7 x 4.7 cm, volume 86.4 mL. PERIPHERAL ZONE: Patchy areas of low T2 signal. TRANSITIONAL ZONE: Changes of glandular and stromal hyperplasia (BPH). Postsurgical changes from prior transurethral resection of the prostate. Seminal Vesicles: Normal. Bladder: There is diffuse mucosal bladder wall hyperenhancement and perivesical fat stranding. Diverticulum is noted along the posterior wall of the urinary bladder. There is bilateral hydroureteronephrosis. Distal loop of the left ureteral stent is in the urinary bladder. Distal loop of the right ureteral stent is within the right distal ureter. Lymph Nodes: Left iliac lymph node (45:11) measures 0.9 cm. Right pelvic sidewall lymph node (45:19) measures 0.6 cm. Vessels: Normal. Bones: No focal osseous lesions. Colonic diverticulosis is present. IMPRESSION: 1. No focal lesions in the prostate gland to suggest clinically significant prostate cancer. 2. Diffuse mural enhancement and wall thickening involving the urinary bladder, likely cystitis which may be related to intravesical BCG/mitomycin. 3. Bilateral hydroureter. Distal loop of the right ureteral stent is in the right distal ureter. NOTE: PI-RADS (Prostate Imaging Reporting and Data System) assessment uses a 5 point scale based on the likelihood (probability) that a combination of multi-parametric MRI findings on T2W, DWI, and DCE correlates with the presence of a clinically significant cancer for each lesion in the prostate gland. A clinically significant cancer is defined on pathology/histology as Jag score > or equal to 7 (including 3+4 or 4+3 and/or volume > 0.5cc), and/or extra-prostatic extension (EPE). ATTESTATION: Darshana Rodarte, as teaching physician have reviewed the images, if any, for this patient's exam, and if necessary, have edited the report originally created by Randy Dawson. us Atilio Louie MD IMG OUTSIDE IMAGING W/ INTERP RETATION Final Result [facility] [address] [facility] [place] [address] documented in this encounter Visit Diagnoses Diagnosis Malignant neoplasm of overlapping sites of bladder- Primary Malignant neoplasm of overlapping sites of bladder documented in this encounter Additional Health Concerns Infection Onset Date Last Indicated Resolved Time CoV-Risk Comment:Per note documentation 02/12/2020 02/17/2020 0 10:23 AM EST documented as of this encounter Care Teams Clean Room Operator Relationship Specialty Start Date End Date Ricardo Stewart DO [email or web address] PCP - General 01/19/17 Self-Referred, Patient 05/27/18 Atilio Louie MD [address] [place] [address] [address] [place] [address] [email or web address] Urology 05/27/18 Ricardo Stewart DO [address] [place] [address] [email or web address] Insurance Assigned Provider 08/09/19 documented as of this encounter Additional Source Comments The information contained in this document represents components of the legal health record. It is not the complete legal health record.[facility]
--- OUTSIDE RECORDS SUMMARY | 2024-12-12 14:13 | XMS_ITS | Encounter Summary ---
Author Organization [facility] Address [address] [place] [address] Phone Care Team Providers Care Towel Sorter Name Role Phone Terry Ricardo Nieto DO Primary Care Provider [phone] Self-Referred, Patient Unavailable Unavailab le Atilio Louie MD Unavailable [phone] Ricadro Stewart DO Unavailable Reason for Referral * MRI/CAT Scan - Closed Specialty Diagnoses / Procedures Referred By Shobha martini Referred To Contact Procedures NM PET Whole Body Outside (No Interpretation) Atilio Louie MD Phone: tel: fax: mailto:[email or web address] Referral ID Status Reason Start Date Expiration Date Visits Re quested Visits Authorized [id number] Closed 06/24/2018 06/24/2019 1 1 * MRI/CAT Scan - Closed Specialty Diagnoses / Procedures Referred By Shobha martini Referred To Contact Procedures NM PET Whole Body Outside (No Interpretation) Atilio Louie MD Phone: tel: fax: mailto:[email or web address] Referral ID Status Reason Start Date Expiration Date Visits Re quested Visits Authorized [id number] Closed 06/20/2018 06/20/2019 1 1 Encounter Details Date Type Department Care Team (Late st Contact Info) Description 06/20/2018 Transcribe Orders [facility] [address] [place] [address] Troy Allen [address] [place] [address] [email or web address] Social History Tobacco Use Types Packs/Day Years [...] documented as of this encounter Results * NM PET Whole Body Outside (No Interpretation) (06/24/2018 8:48 AM EDT) Narrative [facility] - 06/24/2018 8:48 AM EDT This study is for PACS storage only and not for interpretation. us Atilio Louie MD IMG OUTSIDE IMAGING W/OUT INT ERPRETATION Final Result Performing Organization Address [facility] de Phone Number [email or web address] * NM PET Whole Body Outside (No Interpretation) (06/20/2018 11:21 AM EDT) [facility]ative [facility] 06/20/2018 11:21 AM EDT This study is for PACS storage only and not for interpretation. us Atilio Louie MD IMG OUTSIDE IMAGING W/OUT INT ERPRETATION Final Result Performing Organization Address City/[facility] Co de Phone Number [email or web address] documented in this encounter Visit Diagnoses Not on filedocumented in this encounter Additional Health Concerns Infection Onset Date Last Indicated Resolved Time CoV-Risk Comment:Per note documentation 02/12/2020 02/17/2020 0 10:23 AM EST documented as of this encounter Care Teams Towel Sorter Relationship Specialty Start Date End Date Ricardo Stewart DO [email or web address] PCP - General 01/19/17 Self-Referred, Patient 05/27/18 Atilio Louie MD [address] [place] [address] [address] [place] [address] [email or web address] Urology 05/27/18 Ricardo Stewart DO [address] [place] [address] [email or web address] Insurance Assigned Provider 08/09/19 documented as of this encounter Additional Source Comments The information contained in this document represents components of the legal health record. It is not the complete legal health record.[facility]
--- OUTSIDE RECORDS SUMMARY | 2024-12-12 14:13 | XMS_ITS | Encounter Summary ---
Author Organization [facility] Address [address] [place] [address] Phone Care Team Providers Care System Support Analyst Name Role Phone Ricardo Stewart DO Primary Care Provider [phone] Self-Referred, Patient Unavailable Unavailab Atilio Raphael MD Unavailable [phone] Ricardo Stewart DO Unavailable Encounter Details Date Type Department Care Team (Late st Contact Info) Description 04/18/2020 Procedure Pass [facility] Periop [address] [place] [address] Social History Tobacco Use Types Packs/Day Years Used Date Smoking Tobacco: Former Cigarettes 2 59 0 [birth year]10/1957 - 10/10/2017 Smokeless Tobacco: Never Alcohol Use Standard Drinks/Week Comments Not Currently 0 (1 standard drink = 0.6 oz pur e alcohol) last drink > one week ago Sex and Gender Information Value Date Recorded Sex Assigned at Male 12/27/2017 2:28 PM EDT Legal Sex Male 10:08 PM EDT Gender Identity Male 12/27/2017 2:28 PM EDT Sexual Orientation Straight 12/27/2017 2: 28 PM EDT documented as of this encounter Plan of Treatment Not on file documented as of this encounter Visit Diagnoses Not on filedocumented in this encounter Care Teams System Support Analyst Relationship Specialty Start Date End Date Ricardo Stewart DO PCP - General 01/19/17 Self-Referred, Patient 05/27/18 Atilio Louie MD [address] [place] [address] [address] [place] [address] [email or web address] Urology 05/27/18 Ricardo Stewart DO [address] [place] [address] [email or web address] Insurance Assigned Provider 08/09/19 documented as of this encounter Additional Source Comments The information contained in this document represents components of the legal health record. It is not the complete legal health record.[facility]
--- OUTSIDE RECORDS SUMMARY | 2024-12-12 14:13 | XMS_ITS | Encounter Summary ---
Author Organization [facility] Address [address] [place] [address] Phone Care Team Providers Care Medicaid Service Coordinator Name Role Phone Terry Ricardo Nieto DO Primary Care Provider Self-Referred, Patient Unavailable Unavailab Atilio Raphael MD Unavailable [phone] Ricardo Stewart DO Unavailable Encounter Details Date Type Department Care Team (Late st Contact Info) Description 03/09/2019 Procedure Pass [facility] Periop [address] [place] [address] Social History Tobacco Use Types Packs/Day Years Used Date Smoking Tobacco: Former Cigarettes 2 60 0 10[birth year]10/1958 - 10/10/2017 Smokeless Tobacco: Never Alcohol Use Standard Drinks/Week Comments Not Currently 0 (1 standard drink = 0.6 oz pur e alcohol) last drink one week ago Sex and Gender Information [...] documented as of this encounter Care Teams Medicaid Service Coordinator Relationship Specialty Start Date End Date Ricardo Stewart DO [email or web address] PCP - General 01/19/17 Self-Referred, Patient 05/27/18 Atilio Louie MD [address] [place] [address] [address] [place] [address] [email or web address] Urology 05/27/18 Ricardo Stewart DO [address] [place] [address] [email or web address] Insurance Assigned Provider 08/09/19 documented as of this encounter Additional Source Comments The information contained in this document represents components of the legal health record. It is not the complete legal health record.[facility]
--- OUTSIDE RECORDS SUMMARY | 2024-12-12 14:14 | XMS_ITS | Encounter Summary ---
Author Organization [facility] Address [address] [place] [address] Phone Care Team Providers Care Paper Latcher Name Role Phone Ricardo Stewart DO Primary Care Provider [phone] Self-Referred, Patient Unavailable Unavailab Atilio Raphael MD Unavailable [phone] Ricardo Stewart DO Unavailable Encounter Details Date Type Department Care Team (Late st Contact Info) Description 02/21/2020 Procedure Pass [facility] Angio Interventional Radiology [address] [place] [address] Social History Tobacco Use Types Packs/Day Years [...] on filedocumented in this encounter Care Teams Paper Latcher Relationship Specialty Start Date End Date Ricardo Stewart DO PCP - General 01/19/17 Self-Referred, Patient 05/27/18 Atilio Louie MD [address] [place] [address] 11[address] [place] [address] [email or web address] Urology 05/27/18 Ricardo Stewart DO [address] [place] [address] [email or web address] Insurance Assigned Provider 08/09/19 documented as of this encounter Additional Source Comments The information contained in this document represents components of the legal health record. It is not the complete legal health record.[facility]
--- OUTSIDE RECORDS SUMMARY | 2024-12-12 14:14 | XMS_ITS | Encounter Summary ---
Author Organization [facility] Address [address] [place] [address] Phone Care Team Providers Care Timber Cruiser Name Role Phone Boazhebert Ricardo Emilia Primary Care Provider [phone] Self-Referred, Patient Unavailable Unavailab Atilio Raphael MD Unavailable [phone] Ricardo Stewart DO Unavailable Encounter Details Date Type Department Care Team (Late st Contact Info) Description 03/05/2020 Telephone [facility] Angio Interventional Radiology [address] [place] [address] [id number] Ayad Carrizales RN [address] [place] [address] [email or web address] Social History Tobacco Use Types Packs/Day Years [...] on filedocumented in this encounter Care Teams Timber Cruiser Relationship Specialty Start Date End Date Ricardo Stewart DO [email or web address] PCP - General 01/19/17 Self-Referred, Patient 05/27/18 Atilio Louie MD [address] [place] [address] [address] [place] [address] [email or web address] [email or web address] 05/27/18 Ricardo Stewart DO [address] [place] [address] [email or web address] Insurance Assigned Provider 08/09/19 documented as of this encounter Additional Source Comments The information contained in this document represents components of the legal health record. It is not the complete legal health record.[facility]
--- OUTSIDE RECORDS SUMMARY | 2024-12-12 14:14 | XMS_ITS | Encounter Summary ---
Author Organization [facility] Address [address] [place] [address] Phone Care Team Providers Care Faculty Administrator Name Role Phone Terry Ricardo Nieto DO Primary Care Provider [phone] Self-Referred, Patient Unavailable Unavailab Atilio Raphael MD Unavailable [phone] Ricardo Stewart DO Unavailable Encounter Details Date Type Department Care Team (Late st Contact Info) Description 06/17/2018 Procedure Pass [place] Admitting Dept - Virtual Department [address] [place] [address] Social History Tobacco Use Types Packs/Day Years [...] documented as of this encounter Care Teams Faculty Administrator Relationship Specialty Start Date End Date Ricardo Stewart DO [email or web address] PCP - General 01/19/17 Self-Referred, Patient 05/27/18 Atilio Louie MD [address] [place] [address] [address] [place] [address] [email or web address] U[facility] 05/27/18 Ricardo Stewart DO [address] [place] [address] [email or web address] Insurance Assigned Provider 08/09/19 documented as of this encounter Additional Source Comments The information contained in this document represents components of the legal health record. It is not the complete legal health record.[facility]
--- OUTSIDE RECORDS SUMMARY | 2024-12-12 14:14 | XMS_ITS | Encounter Summary ---
Author Organization [facility] Address [address] [place] [address] Phone Care Team Providers Care Economic History Teacher Name Role Phone Terry iRcardo Nieto DO Primary Care Provider [phone] Self-Referred, Patient Unavailable Unavailab Atilio Raphael MD Unavailable [phone] Ricardo Stewart DO Unavailable Encounter Details Date Type Department Care Team (Late st Contact Info) Description 11/23/2018 Procedure Pass [facility] Periop 1st floor [address] [place] [address] Social History Tobacco Use Types Packs/Day Years [...] Time CoV-Risk Comment:Per note documentation 02/12/2020 02/17/2020 11/14/202 0 10:23 AM EST documented as of this encounter Care Teams Economic History Teacher Relationship Specialty Start Date End Date Ricardo Stewart DO [email or web address] PCP - General 01/19/17 Self-Referred, Patient 05/27/18 Atilio Louie MD [address] [place] [address] 11-[address] [place] [address] [email or web address] Urology 05/27/18 Ricardo Stewart DO [address] [place] [address] [email or web address] Insurance Assigned Provider 08/09/19 documented as of this encounter Additional Source Comments The information contained in this document represents components of the legal health record. It is not the complete legal health record.[facility]
--- OUTSIDE RECORDS SUMMARY | 2024-12-12 14:14 | XMS_ITS | Encounter Summary ---
Author Organization [facility] Address [address] [place] [address] Phone Care Team Providers Care Rice Cleaning Machine Tender Name Role Phone Terry Ricardo Nieto DO Primary Care Provider [phone] Self-Referred, Patient Unavailable Unavailab Atilio Raphael MD Unavailable [phone] Ricardo Stewart DO Unavailable Encounter Details Date Type Department Care Team (Late st Contact Info) Description 01/03/2019 Procedure Pass [facility] Endoscopy Admitting Dept Virtual Department [address] [place] [address] Social History Tobacco Use Types Packs/Day Years [...] documented as of this encounter Care Teams Rice Cleaning Machine Tender Relationship Specialty Start Date End Date Ricardo Stewart DO [email or web address] PCP - General 01/19/17 Self-Referred, Patient 05/27/18 Atilio Louie MD [address] [place] [address] 11-[address] [place] [address] [email or web address] Urology 05/27/18 Ricardo Stewart DO [address] [place] [address] [email or web address] Insurance Assigned Provider 08/09/19 documented as of this encounter Additional Source Comments The information contained in this document represents components of the legal health record. It is not the complete legal health record.[facility]
--- OUTSIDE RECORDS SUMMARY | 2024-12-12 14:14 | XMS_ITS | Encounter Summary ---
Author Organization [facility] Address [address] [place] [address] Phone Care Team Providers Care Truck And Transport Mechanic Name Role Phone Ricardo Stewart DO Primary Care Provider [phone] Self-Referred, Patient Unavailable Unavailab Atilio Raphael MD Unavailable [phone] Ricardo Stewart DO Unavailable Encounter Details Date Type Department Care Team (Late st Contact Info) Description 02/21/[address] [facility] Angio Interventional Radiology [address] [place] [address] Social History Tobacco Use Types Packs/Day Years [...] on filedocumented in this encounter Care Teams Truck And Transport Mechanic Relationship Specialty Start Date End Date Ricardo Stewart DO PCP - General 01/19/17 Self-Referred, Patient 05/27/18 Atilio Louie MD [address] [place] [address] [address] [place] [address] [email or web address] Urology 05/27/18 Ricardo Stewart DO [address] [place] [address] Insurance Assigned Provider 08/09/19 documented as of this encounter Additional Source Comments The information contained in this document represents components of the legal health record. It is not the complete legal health record.[facility]
--- OUTSIDE RECORDS SUMMARY | 2024-12-12 14:14 | XMS_ITS | Encounter Summary ---
Author Organization [facility] Address [address] [place] [address] Phone Care Team Providers Care Line Service Person Name Role Phone Ricardo Stewart DO Primary Care Provider [phone] Self-Referred, Patient Unavailable Unavailab Atilio Raphael MD Unavailable [phone] Ricardo Stewatr DO Unavailable Encounter Details Date Type Department Care Team (Late st Contact Info) Description 03/07/2020 Procedure Pass [facility] Radiology [address] [place] [address] Social History Tobacco Use Types Packs/Day Years [...] on filedocumented in this encounter Care Teams Line Service Person Relationship Specialty Start Date End Date Ricardo Stewart DO PCP - General 01/19/17 Self-Referred, Patient 05/27/18 Atilio Louie MD [address] [place] [address] 11[address] [place] [address] [email or web address] Urology 05/27/18 Ricardo Stewart DO [address] [place] [address] [email or web address] Insurance Assigned Provider 08/09/19 documented as of this encounter Additional Source Comments The information contained in this document represents components of the legal health record. It is not the complete legal health record.[facility]
--- OUTSIDE RECORDS SUMMARY | 2024-12-12 14:14 | XMS_ITS | Encounter Summary ---
Author Organization [facility] Address [address] [place] [address] Phone Care Team Providers Care Composition Roofer Name Role Phone Terry Ricardo Nieto DO Primary Care Provider [phone] Self-Referred, Patient Unavailable Unavailab Atilio Raphael MD Unavailable [phone] Ricardo Stewart DO Unavailable Reason for Referral * Consultation (Within 3 days (urgent)) - Closed Specialty Diagnoses / Procedures Referred By Shobha martini Referred To Contact Diagnoses Malignant neoplasm of overlapping sites of bladder Teodoro Otto MD, PhD Phone: tel: fax: [email or web address] [address] [address] Phone: tel: Referral ID Status Reason Start Date Expiration Date Visits Re quested Visits Authorized [id number] Closed 03/05/2020 03/05/2021 1 1 Encounter Details Date Type Department Care Team (Latest Contact Info) Description 03/05/2020 Transcribe Orders [facility] Angio Interventional Radiology [address] [place] [address] [phone] Ayad Carrizales, LASHON [address] [place] [address] [email or web address] Malignant neoplasm of overlapping sites of bladder [...] as of this encounter Plan of Treatment Scheduled Referrals Name Type Priority Associated Diagnoses Orde r Schedule Ambulatory referral to [facility] Urgent COVID Testing (ED) Outpatient Referral Routine Malignant neoplasm of overlapping sites of bladder Ordered: 03/05/2020 documented as of this encounter Visit Diagnoses Diagnosis Malignant neoplasm of overlapping sites of bladder- Primary documented in this encounter Care Teams Composition Roofer Relationship Specialty Start Date End Date Ricardo Stewart DO PCP - General 01/19/17 Self-Referred, Patient 05/27/18 Atilio Louie MD [address] [place] [address] 11[address] [place] [address] [email or web address] Urology 05/27/18 Ricardo Stewart DO [address] [place] [address] [email or web address] Insurance Assigned Provider 08/09/19 documented as of this encounter Additional Source Comments The information contained in this document represents components of the legal health record. It is not the complete legal health record.[facility]
--- OUTSIDE RECORDS SUMMARY | 2024-12-12 14:14 | XMS_ITS | Encounter Summary ---
Author Organization [facility] Address [address] [place] [address] Phone Care Team Providers Care Dishwasher Busser Name Role Phone Terry Ricardo Nieto DO Primary Care Provider [phone] Self-Referred, Patient Unavailable Unavailab Atilio Raphael MD Unavailable [phone] Ricardo Stewart DO Unavailable Encounter Details Date Type Department Care Team (Late st Contact Info) Description 05/04/2018 Procedure Pass [place] Admitting Dept - Virtual Department [address] [place] [address] Social History Tobacco Use Types Packs/Day Years [...] documented as of this encounter Care Teams Dishwasher Busser Relationship Specialty Start Date End Date Ricardo Stewart DO [email or web address] PCP - General 01/19/17 Self-Referred, Patient 05/27/18 Atilio Louie MD [address] [place] [address] [address] [place] [address] [email or web address] [email or web address] 05/27/18 Ricardo Stewart DO [address] [place] [address] [email or web address] Insurance Assigned Provider 08/09/19 documented as of this encounter Additional Source Comments The information contained in this document represents components of the legal health record. It is not the complete legal health record.[facility]
--- OUTSIDE RECORDS SUMMARY | 2024-12-12 14:14 | XMS_ITS | Encounter Summary ---
Author Organization [facility] Address [address] [place] [address] Phone Care Team Providers Care Lime Kiln Worker Name Role Phone Ricardo Stewart Primary Care Provider [phone] Self-Referred, Patient Unavailable Unavailab Atilio Raphael MD Unavailable [phone] Terry Ricardo Nieto DO Unavailable Encounter Details Date Type Department Care Team (Latest Contact Info) Description 03/01/2020 Transcribe Orders [facility] [address] [place] [address] Atilio Louie MD [address] [place] [address] [email or web address] Routine general medical examination at a health [...] documented as of this encounter Results * (ABNORMAL) Urinalysis w/reflex Urine Culture (03/01/2020 12:01 PM EST) COLOR Yellow Yellow [facility] CLARITY HAZY [facility] GLUCOSE Negative Negative [facility] BILI Negative Negative [facility] KETONES Negative Negative [facility] SPECIFIC GRAVITY 1.015 1.005 - 1.030 [facility] BLOOD 3+(A) Negative [facility] PH 7.0 5.0 - 8.0 [facility] Protein-UA Trace(A) Negative [facility] NITRITE Negative Negative [facility] Leukocyte esterase, ur 1+(A) Negative [facility] Urine (Urine) 03/01/2020 12: 01 PM EST 03/01/2020 12:04 PM EST us Atilio Louie MD URINE ORDERABLES Final Result Performing Organization Address City/State/[facility] Co de Phone Number [facility] [address] [place] [address] documented in this encounter Visit Diagnoses Diagnosis Routine general medical examination at a health care facility- Primary documented in this encounter Care Teams Lime Kiln Worker Relationship Specialty Start Date End Date Ricardo Stewart DO [email or web address] PCP - General 01/19/17 Self-Referred, Patient 05/27/18 Atilio Louie MD [address] [place] [address] 11-[address] [place] [address] [email or web address] Urology 05/27/18 Ricardo Stewart DO [address] [place] [address] [email or web address] Insurance Assigned Provider 08/09/19 documented as of this encounter Additional Source Comments The information contained in this document represents components of the legal health record. It is not the complete legal health record.[facility]
--- OUTSIDE RECORDS SUMMARY | 2024-12-12 14:14 | XMS_ITS | Encounter Summary ---
Author Organization [facility] Address [address] [place] [address] [place] [address] Phone Care Team Providers Care Bindery Production Manager Name Role Phone Ricardo Stewart DO Primary Care Provider [phone] Self-Referred, Patient Unavailable Unavailab Atilio Raphael MD Unavailable [phone] Encounter Details Date Type Department Care Team (Late st Contact Info) Description 02/16/2024 Ancillary Orders [facility], X-Ray - [address] [address] Aspen Ventura PA [address] [facility] [address] [place] [address] Acute bronchitis, unspecified organism (Primary Dx) Social History Tobacco Use Types Packs/Day Years Used Date Smoking Tobacco: Former Cigarettes 2 60 0 [birth year]10/1957 - 10/10/2017 Smokeless Tobacco: Never Alcohol Use Standard Drinks/Week Comments Not Currently 0 (1 standard drink = 0.6 oz pur e alcohol) last drink > one week ago Education Answer Date Recorded Are you interested in more education? Not on marisa e 07/31/2022 Are you concerned about learning? Not on file 07/31/2022 No 07/31/2022 No 07/31/2022 Digital Access Answer Date Recorded No 08/29/2022 No 08/29/2022 Reliable internet access at home? Not on file 08/29/2022 Device with a working camera? Not on file Sex and Gender Information Value Date Recorded Sex Assigned at Male 12/27/2017 2:28 PM EDT Legal Sex Male 10:08 PM EDT Gender Identity Male 12/27/2017 2:28 PM EDT Sexual Orientation Straight 12/27/2017 2: 28 PM EDT documented as of this encounter Plan of Treatment Not on file documented as of this encounter Results * XR CHEST PA AND LATERAL 2 VIEWS (02/16/2024 2:34 PM EST) Anatomical Region Laterality Modality Chest Computed Radiogr aphy 02/16/2024 2:37 PM EST Impressions 02/16/2024 2:46 PM EST No significant interval change. Narrative 02/16/2024 2:46 PM EST XR CHEST PA AND LATERAL 2 VIEWS Referring clinician's provided indication for this examination in [facility]: Cough COMPARISON: XR CHEST PORTABLE FINDINGS: Devices/Tubes/Lines: None. Lungs: Unchanged. Pleura: Normal. No pleural effusion or pneumothorax. Heart/Mediastinum: Normal heart and mediastinum. Bones/Soft Tissues: No acute fracture. Procedure Note Francie Sanchez MD - 02/16/2024 XR CHEST PA AND LATERAL 2 VIEWS Referring clinician's provided indication for this examination in [facility]:Cough COMPARISON: XR CHEST PORTABLE FINDINGS: Devices/Tubes/Lines: None. Lungs: Unchanged. Pleura: Normal. No pleural effusion or pneumothorax. Heart/Mediastinum: Normal heart and mediastinum. Bones/Soft Tissues: No acute fracture. IMPRESSION: No significant interval change. Aspen LONDONO IMG XR CHEST Final Resul t documented in this encounter Visit Diagnoses Diagnosis Acute bronchitis, unspecified organism- Primary Acute bronchitis, unspecified organism documented in this encounter Care Teams Bindery Production Manager Relationship Specialty Start Date End Date Ricardo Stewart DO [email or web address] PCP - General 01/19/17 Self-Referred, Patient 05/27/18 Atilio Louie MD [address] [place] [address] 11-[address] [place] [address] [email or web address] Urology 05/27/18 documented as of this encounter Additional Source Comments The information contained in this document represents components of the legal health record. It is not the complete legal health record.[facility]
--- OUTSIDE RECORDS SUMMARY | 2024-12-12 14:14 | XMS_ITS | Encounter Summary ---
Author Organization [facility] Address [address] [place] [address] Phone Care Team Providers Care Soda Dry House Operator Name Role Phone Ricardo Stewart DO Primary Care Provider [phone] Self-Referred, Patient Unavailable Unavailab Atilio Raphael MD Unavailable [phone] Ricardo Stewart DO Unavailable Encounter Details Date Type Department Care Team (Late st Contact Info) Description 03/07/2020 Procedure Pass [facility] Periop [address] [place] [address] Social History Tobacco Use Types Packs/Day Years [...] on filedocumented in this encounter Care Teams Soda Dry House Operator Relationship Specialty Start Date End Date Ricardo Stewart DO [email or web address] PCP - General 01/19/17 Self-Referred, Patient 05/27/18 Atilio Louie MD [address] [place] [address] 11[address] [place] [address] [email or web address] Urology 05/27/18 Ricardo Stewart DO [address] [place] [address] [email or web address] Insurance Assigned Provider 08/09/19 documented as of this encounter Additional Source Comments The information contained in this document represents components of the legal health record. It is not the complete legal health record.[facility]
--- OUTSIDE RECORDS SUMMARY | 2024-12-12 14:14 | XMS_ITS | Encounter Summary ---
Author Organization [facility] Address [address] [place] [address] Phone Care Team Providers Care Door Manager Name Role Phone Terry Ricardo Nieto DO Primary Care Provider [phone] Self-Referred, Patient Unavailable Unavailab Atilio Raphael MD Unavailable [phone] Ricardo Stewart DO Unavailable Encounter Details Date Type Department Care Team (Late st Contact Info) Description 05/31/2018 Procedure Pass [facility] Endoscopy Admitting Dept Virtual Department [address] [place] [address] Social History Tobacco Use Types Packs/Day Years [...] documented as of this encounter Care Teams Door Manager Relationship Specialty Start Date End Date Ricardo Stewart DO [email or web address] PCP - General 01/19/17 Self-Referred, Patient 05/27/18 Atilio Louie MD [address] [place] [address] [address] [place] [address] [email or web address] Urology 05/27/18 Ricardo Stewart DO [address] [place] [address] [email or web address] Insurance Assigned Provider 08/09/19 documented as of this encounter Additional Source Comments The information contained in this document represents components of the legal health record. It is not the complete legal health record.[facility]
--- OUTSIDE RECORDS SUMMARY | 2024-12-12 14:15 | XMS_ITS | Encounter Summary ---
Author Organization [facility] Address [address] [place] [address] Phone Care Team Providers Care Motor Assembly Supervisor Name Role Phone Terry Ricardo Nieto DO Primary Care Provider [phone] Self-Referred, Patient Unavailable Unavailab Atilio Raphael MD Unavailable [phone] Ricardo Stewart DO Unavailable Encounter Details Date Type Department Care Team (Late st Contact Info) Description 02/16/2020 Procedure Pass [facility], Ct Scan - [address] [address] Social History Tobacco Use Types Packs/Day Years [...] documented as of this encounter Care Teams Motor Assembly Supervisor Relationship Specialty Start Date End Date Ricardo Stewart DO [email or web address] PCP - General 01/19/17 Self-Referred, Patient 05/27/18 Atilio Louie MD [address] [place] [address] [address] [place] [address] [email or web address] Urology 05/27/18 Ricardo Stewart DO [address] [place] [address] [email or web address] Insurance Assigned Provider 08/09/19 documented as of this encounter Additional Source Comments The information contained in this document represents components of the legal health record. It is not the complete legal health record.[facility]
--- OUTSIDE RECORDS SUMMARY | 2024-12-12 14:15 | XMS_ITS | Encounter Summary ---
Author Organization [facility] Address [address] [place] [address] Phone Care Team Providers Care Waxer Floor Name Role Phone Ricardo Stewart DO Primary Care Provider [phone] Self-Referred, Patient Unavailable Unavailab Atilio Raphael MD Unavailable [phone] Ricardo Stewart DO Unavailable Reason for Referral * MRI/CAT Scan - Closed Specialty Diagnoses / Procedures Referred By Shobha martini Referred To Contact Radiology Diagnoses Diverticulitis of large intestine without perforation or abscess without bleeding Procedures CT Abdomen/Pelvis Ricardo Stewart DO Phone: tel: fax: [email or web address] Referral ID Status Reason Start Date Expiration Date Visits Re quested Visits Authorized [id number] Closed 04/15/2018 06/14/2018 1 1 Encounter Details Date Type Department Care Team (Late st Contact Info) Description 04/13/2018 Ancillary Orders Virtual Department [address] [place] [address] Ricardo Stewart DO [address] [facility] [place] [address] [email or web address] Diverticulitis of large intestine without perforation or abscess without bleeding Social History Tobacco Use Types Packs/Day Years Used Date Smoking Tobacco: Former Cigarettes 0 10/10/1957 - 10/10/2017 Smokeless Tobacco: Never Alcohol Use Standard Drinks/Week Comments Yes 3 (1 standard drink = 0.6 oz pur e alcohol) vodka Sex and Gender Information Value Date Recorded Sex Assigned at Male 12/27/2017 2:28 PM EDT Legal Sex Male 10:08 PM EDT Gender Identity Male 12/27/2017 2:28 PM EDT Sexual Orientation Straight 12/27/2017 2: 28 PM EDT documented as of this encounter Plan of Treatment Not on file documented as of this encounter Results * CT ABDOMEN/PELVIS WITH CONTRAST (04/19/2018 3:38 PM EST) Anatomical Region Laterality Modality Abdomen, Pelvis Computed Tomogra phy 04/19/2018 5:01 PM EST Impressions 04/19/2018 5:28 PM EST 1. Significant progression of bladder wall thickening and development of moderate- severe bilateral pelvocaliectasis and ureterectasis suggesting distal obstruction. New changes in the pericystic fat. Appearance could be due to worsening bladder malignancy or severe cystitis. Clinical follow-up recommended. 2. No definite signs of acute colonic diverticulitis. TOTAL CTDIvol: 12.90 mGy POS - [id number] Narrative 04/19/2018 5:28 PM EST HISTORY: Bladder carcinoma, UTI, colonic diverticulitis, crampy abdominal pain. COMPARISON: CT abdomen/pelvis 09/15/2017. TECHNIQUE: CT abdomen and pelvis with IV and oral contrast. Multiplanar reformatted images generated. Automated exposure control utilized. FINDINGS: Lower hemithoraces: Small calcified pleural plaques at the bases posteriorly. GI: No marked bowel distention or evidence of bowel wall thickening. Numerous diverticula again demonstrated within the sigmoid colon. No free air. Liver/spleen: No evidence of significant abnormalities of the liver or spleen. Pancreas/biliary: Pancreas appears normal. No evidence of biliary ductal dilatation. Adrenals/: Adrenals appear normal. Bilateral perinephric fat stranding is similar. Stable bilateral exophytic renal cysts. Both kidneys enhance symmetrically. Moderate-large amount of new pelvocaliectasis bilaterally. Moderate dilatation of both ureters diffusely. Urinary bladder is incompletely distended. There is increased thickening of the bladder wall, particularly anteriorly. New hazy soft tissue attenuation in the pericystic fat stranding anteriorly. Streaky, hazy soft tissue attenuation in the lower retroperitoneum on the left adjacent to the iliopsoas muscle, iliac vessels, loop of sigmoid and distal left ureter. Lymph node/lymphatics: No measurable lymphadenopathy. Cardiovascular: No significant changes. Musculoskeletal: No suspicious lytic or blastic lesions within the bones. Procedure Note Supa Becerra MD - 04/19/2018 HISTORY: Bladder carcinoma, UTI, colonic diverticulitis, crampy abdominalpain. COMPARISON: CT abdomen/pelvis 09/15/2017. TECHNIQUE: CT abdomen and pelvis with IV and oral contrast. Multiplanarreformatted images generated. Automated exposure control utilized. FINDINGS: Lower hemithoraces: Small calcified pleural plaques at the basesposteriorly. GI: No marked bowel distention or evidence of bowel wall thickening.Numerous diverticula again demonstrated within the sigmoid colon. No freeair. Liver/spleen: No evidence of significant abnormalities of the liver orspleen. Pancreas/biliary: Pancreas appears normal. No evidence of biliary ductaldilatation. Adrenals/: Adrenals appear normal. Bilateral perinephric fat strandingis similar. Stable bilateral exophytic renal cysts. Both kidneys enhancesymmetrically. Moderate-large amount of new pelvocaliectasis bilaterally.Moderate dilatation of both ureters diffusely. Urinary bladder isincompletely distended. There is increased thickening of the bladderwall, particularly anteriorly. New hazy soft tissue attenuation in thepericystic fat stranding anteriorly. Streaky, hazy soft tissueattenuation in the lower retroperitoneum on the left adjacent to theiliopsoas muscle, iliac vessels, loop of sigmoid and distal left ureter. Lymph node/lymphatics: No measurable lymphadenopathy. Cardiovascular: No significant changes. Musculoskeletal: No suspicious lytic or blastic lesions within thebones. IMPRESSION: 1. Significant progression of bladder wall thickening and development ofmoderate-severe bilateral pelvocaliectasis and ureterectasis suggestingdistal obstruction. New changes in the pericystic fat. Appearance couldbe due to worsening bladder malignancy or severe cystitis. Clinicalfollow-up recommended. 2. No definite signs of acute colonic diverticulitis. TOTAL CTDIvol: 12.90 mGy POS - [id number] us Ricardo Stewart DO IMG CT ABD/PELVIS Final Result documented in this encounter Visit Diagnoses Diagnosis Diverticulitis of large intestine without perforation or abscess without bleeding Diverticulitis of large intestine without perforation or abscess without bleeding documented in this encounter Additional Health Concerns Infection Onset Date Last Indicated Resolved Time CoV-Risk Comment:Per note documentation 02/12/2020 02/17/2020 0 10:23 AM EST documented as of this encounter Care Teams Waxer Floor Relationship Specialty Start Date End Date Ricardo Stewart DO PCP - General 01/19/17 Self-Referred, Patient 05/27/18 Atilio Louie MD [address] [place] [address] [email or web address] Urology 05/27/18 Ricardo Stewart DO [address] [place] [address] Insurance Assigned Provider 08/09/19 documented as of this encounter Additional Source Comments The information contained in this document represents components of the legal health record. It is not the complete legal health record.[facility]
--- OUTSIDE RECORDS SUMMARY | 2024-12-12 14:15 | XMS_ITS ---
Author Organization [facility] Address [address] [place] [address] Phone Care Team Providers Care Lavender Farm Worker Name Role Phone Ricardo Stewart DO Primary Care Provider [phone] Self-Referred, Patient Unavailable Unavailab Atilio Raphael MD Unavailable [phone] Active Problems Problem Noted Date Diagnosed Date Diarrhea 02/20/2020 Assessment & Plan (02/23/2020 2:26 PM EST): Diarrhea starting on 02/20/20. Cdiff negative x2. Likely worse in setting of abx but appears to be chronic since ileaconduit. - Imodium BID - If continues may need outpt GI work up, would defer until stones treated Nephrolithiasis 02/17/2020 Assessment & Plan (02/22/2020 3:07 PM EST): CT A/P remarkable for left moderate hydronephrosis due to 14 x 8 mm stone in the left proximal ureter, an additional 3 mm stone in the left distal ureter with mild hydroureter beyond the proximal ureter stone, multiple calculi in the right distal ureter w/o hydronephrosis, multiple additional nonobstructing renal calculi b/l, b/l renal cysts, a small parastomal hernia associated with the ileal conduit, colonic diverticuli and cholelithiasis. UA remarkable for 2+ blood, 1+ protein, 3+ leukocyte esterase and negative nitrites. BCx 02/16/20 growing E coli; repeat Bcx NGTD 02/17-02/19/20. S/p PCN placement 02/16. Initial and repeat Ucx sent from Angio s/p L PCN placement growing > 100K mixed jacqui and since speciated to > 100K of K oxytoca, E coli and E fecaelis. Based on sensitivity data with underlying AoCKD, no good oral abx options to cover for both polymicrobial UTI and E coli bacteremia per ID. - ID recs appreciated - appreciate Urology recommendations; signed-off - paged 02/21/20 to schedule PCNL as ideally should be performed in 1.5-2wks - transitioned CTX to Zosyn 2.25G IV q6 until 03/02/20 per ID -> will likely need tunneled line placed given renal function - surveillance BCx - Plan for tunneled line to be place today Acute kidney injury 02/17/2020 Assessment & Plan (02/23/2020 2:25 PM EST): Cr 4.07 on admission, last known baseline ~1.5-1.8 in 2019. Likely combination of pre-renal from dehydration, post- renal secondary to obstructive nephropathy and intrinsic from excess NSAID use. S/p PCN placement with IR. Cr 4.22 with bicarb 17. Bicarb gtt initially discontinued in setting of hyperglycemia, resumed 02/19/20 per Renal's recs. Bicarb since improved to 20, and given hyperglycemia despite resumption of insulin, d/c'd gtt. Cr now 2.88 and bicarb 20. - Renal recs appreciated - con't PO bicarb 650mg PO TID -> will increase if indicated - avoid nephrotoxins, encourage PO hydration - trend Cr - NS 100cc/hr given significant urine output (likely combination of post- obstructive diuresis and hyperglycemia) and diarrhea - Bolus IV to maintain no less than 500ml net neg per day - If Cr continues to improve can change abx dose tomorrow Depression 02/17/2020 Assessment & Plan (02/17/2020 3:47 PM EST): - continue bupropion ARF (acute renal failure) 02/16/2020 Abnormal LFTs 02/16/2020 Assessment & Plan (02/21/2020 3:48 PM EST): Elevated Alk phos on admission. Cholelithasis on CT without ductal dilation. RUQ US revealed contracted gallbladder and therefore not well assessed; possible small stones; a 4 mm echogenic focus along the wall non-dependently may represent a polyp or adenomyomatosis. Improving. - trend LFTs - Follow-up in one year is recommended to monitor/evaluate polyp vs adenomyomatosis Thrombocytopenia 02/16/2020 Bladder cancer 03/09/2019 Hyperlipidemia 02/10/2019 Assessment & Plan (02/17/2020 3:49 PM EST): - continue atorvastatin HTN (hypertension) 08/01/2018 Kidney disease, chronic, stage III (GFR 30-59 ml /min) 08/01/2018 Glaucoma 08/01/2018 Type 2 diabetes mellitus wit h diabetic polyneuropathy, with long-term current use of insulin 08/01/2018 Assessment & Plan (02/22/2020 3:05 PM EST): Complicated by diabetic neuropathy. Home regimen glargine 30U qam, aspart 30U AC + SSI AC+HS, dulaglutide weekly. Hg A1c 8. - hold dulaglutide - increased Lantus to 35U SQ qAM - increased aspart to 30U SQ AC - con't moderate AISS Malignant neoplasm of overlapping sites of bladd er 03/24/2018 Diverticulitis of large inte benji without perforation or abscess without bleeding 03/24/2018 Adverse effect of anesthetic Overview (03/05/2020): hard time swallowing after anesthesia thinks it might have been r/t propofol JERSON (acute kidney injury) Overview (03/05/2020): Cr 4.07 on admission 02/15-02/24/2020, last known baseline ~1.5-1.8 in 2019. Likely combination of pre-renal from dehydration, post- renal secondary to obstructive nephropathy and intrinsic from excess NSAID use. S/p PCN placement with IR. Cr 4.22 with bicarb 17. Received bicarb an IV hydration. on 03/04/2020 creat 2.2, K 5.5 Arthritis BCC (basal cell carcinoma of skin) Overview (03/05/2020): right ear Diabetes mellitus Overview (03/05/2020): on insulin. HgBA1C 8.0 on 02/18/20. Diabetic neuropathy Gallbladder mass Overview (03/05/2020): Noted on adm 02/15/-02/24/2020: 4 mm echogenic focus along the gallbladder wall non-dependently may represent a polyp or adenomyomatosis -> will need follow up RUQ US in one year Hyperkalemia Overview (03/05/2020): K+ 5.5 on most recent labs 03/04/2020 Low back pain Lumbar stenosis Peripheral neuropathy Overview (03/05/2020): lower legs Positive blood cultures Overview (03/05/2020): Two sets Bcx from 02/16/20 growing E coli, resistant to fluoroquinolones. Likely in setting of underlying UTI/pyelo, stones. Hemodynamically stable and WBC count trending down (15.36->10.65). Repeat Bcx NGTD. Initially on Cefepime, transitioned to CTX and ultimately for Unasyn with course to be completed on 03/02/2020 Skin cancer Overview (03/05/2020): BCC to ear UTI (urinary tract infection) Overview (03/05/2020): UTI with bacteremia during adm adm -02/24/2020; treated with antibiotics, ended Wears glasses Wears partial dentures Snoring Overview (03/06/2020): no prior sleep study Current Treatment and Therapy Plans No current plan information found. Past Treatment and Therapy Plans Allergy Therapy Plan Plan Name Start Date Discontinue Date Treatment Medications Discontinue Reason Plan Provider HYDRATIONS 03/23/2019 01/18/2020 No medications scheduled. a. Therapy Complete Niharika Cronin PA Resolved Problems Problem Noted Date Diagnosed Date Resolved Date Bacteremia 02/20/2020 04/09/2020 Assessment & Plan (02/21/2020 3:46 PM EST): Two sets Bcx from 02/16/20 growing E coli, resistant to fluoroquinolones. Likely in setting of underlying UTI/pyelo, stones. Hemodynamically stable and WBC count trending down (15.36->10.65). Repeat Bcx NGTD. - ID recs appreciated - CTX transitioned to Zosyn 2.25G IV q6 until 03/02/20 -> will likely need tunneled line given renal function Cystitis 07/26/2018 04/09/2020
--- OUTSIDE RECORDS SUMMARY | 2024-12-12 14:15 | XMS_ITS | Encounter Summary ---
Author Organization [facility] Address [address] [place] [address] Phone Care Team Providers Care Idea Worker Name Role Phone Terry Ricardo Emilia Primary Care Provider [phone] Self-Referred, Patient Unavailable Unavailab Atilio Raphael MD Unavailable [phone] Ricardo Stewart DO Unavailable Reason for Visit * Reason Comments Medication Refill Encounter Details Date Type Department Care Team (Late st Contact Info) Description 05/10/2021 Refill [facility] Urology [address] [facility] 4[place], [place] [address] Atilio Louie MD [address] [place], [place] [address] [place] [address] [email or web address] Medication Refill Social History Tobacco Use Types Packs/Day Years [...] on filedocumented in this encounter Care Teams Idea Worker Relationship Specialty Start Date End Date Ricardo Stewart DO [email or web address] PCP - General 01/19/17 Self-Referred, Patient 05/27/18 Atilio Louie MD [address] [place] [address] [address] [place] [address] [email or web address] Urology 05/27/18 Ricardo Stewart DO [address] [place] [address] [email or web address] Insurance Assigned Provider 08/09/19 documented as of this encounter Additional Source Comments The information contained in this document represents components of the legal health record. It is not the complete legal health record.[facility]
--- OUTSIDE RECORDS SUMMARY | 2024-12-12 14:15 | XMS_ITS | Encounter Summary ---
Author Organization [facility] Address [address] [place] [address] Phone Care Team Providers Care Mirror Framer Name Role Phone Ricardo Stewart DO Primary Care Provider [phone] Self-Referred, Patient Unavailable Unavailab Atilio Raphael MD Unavailable [phone] Ricardo Stewart DO Unavailable Encounter Details Date Type Department Care Team (Late st Contact Info) Description 04/18/2018 Transcribe Orders [facility] [address] [place] [address] Ricardo Stewart DO [address] [facility] [address] [place], [place] [id number] Essential hypertension, malignant (Primary Dx) Social History Tobacco Use Types [...] as of this encounter Results * (ABNORMAL) Creatinine/eGFR (04/18/2018 11:42 AM EST) CREATININE 1.30 0.5 - 1.5 mg/dL [facility] EGFR 54(L) >59 mL/min/1.7 3m2 [facility] Comment:If patient is black, multiply result by 1.159. Estimated glomerular filtration rate calculated using the CKD-EPI equation. Blood 04/18/2018 11:4 2 AM EST 04/18/2018 11:45 AM EST us Ricardo Stewart DO LAB BLOOD ORDERABLES Final Resul t [facility] [address] [place] [address] documented in this encounter Visit Diagnoses Diagnosis Essential hypertension, malignant- Primary documented in this encounter Additional Health Concerns Infection Onset Date Last Indicated Resolved Time CoV-Risk Comment:Per note documentation 02/12/2020 02/17/2020 0 10:23 AM EST documented as of this encounter Care Teams Mirror Framer Relationship Specialty Start Date End Date Ricardo Stewart DO [email or web address] PCP - General 01/19/17 Self-Referred, Patient 05/27/18 Atilio Louie MD [address] [place] [address] [address] [place] [address] [email or web address] Urology 05/27/18 Ricardo Stewart DO [address] [place] [address] Insurance Assigned Provider 08/09/19 documented as of this encounter Additional Source Comments The information contained in this document represents components of the legal health record. It is not the complete legal health record.[facility]
--- OUTSIDE RECORDS SUMMARY | 2024-12-12 14:15 | XMS_ITS | Encounter Summary ---
Author Organization [facility] Address [address] [place] [address] Phone Care Team Providers Care Research Pharmacist Name Role Phone Ricardo Stewart DO Primary Care Provider [phone] Self-Referred, Patient Unavailable Unavailab Atilio Raphael MD Unavailable Ricardo Stewart DO Unavailable Encounter Details Date Type Department Care Team (Late st Contact Info) Description 04/19/2020 Procedure Pass [facility], Ct Scan - [address] [address] Social History Tobacco Use Types Packs/Day Years [...] on filedocumented in this encounter Care Teams Research Pharmacist Relationship Specialty Start Date End Date Ricardo Stewart DO [email or web address] PCP - General 01/19/17 Self-Referred, Patient 05/27/18 Atilio Louie MD [address] [place] [address] [address] [place] [address] [email or web address] Urology 05/27/18 Ricardo Stewart DO [address] [place] [address] [email or web address] Insurance Assigned Provider 08/09/19 documented as of this encounter Additional Source Comments The information contained in this document represents components of the legal health record. It is not the complete legal health record.[facility]
--- OUTSIDE RECORDS SUMMARY | 2024-12-12 14:15 | XMS_ITS | Encounter Summary ---
Author Organization [facility] Address [address] [place] [address] Phone Care Team Providers Care Railroad Car Repairman Name Role Phone Terry Ricardo Nieto DO Primary Care Provider [phone] Self-Referred, Patient Unavailable Unavailab Atilio Raphael MD Unavailable [phone] Ricardo Stewart DO Unavailable Encounter Details Date Type Department Care Team (Late st Contact Info) Description 02/17/2020 Procedure Pass [facility] Angio Interventional Radiology [address] [place] [address] Social History Tobacco Use Types Packs/Day Years [...] documented as of this encounter Care Teams Railroad Car Repairman Relationship Specialty Start Date End Date Ricardo Stewart DO [email or web address] PCP - General 01/19/17 Self-Referred, Patient 05/27/18 Atilio Louie MD [address] [place] [address] [address] [place] [address] [email or web address] Urology 05/27/18 Ricardo Stewart DO [address] [place] [address] [email or web address] Insurance Assigned Provider 08/09/19 documented as of this encounter Additional Source Comments The information contained in this document represents components of the legal health record. It is not the complete legal health record.[facility]
--- OUTSIDE RECORDS SUMMARY | 2024-12-12 14:15 | XMS_ITS | Encounter Summary ---
Author Organization [facility] Address [address] [place] [address] Phone Care Team Providers Care Registry Rn Name Role Phone Ricardo Stewart DO Primary Care Provider [phone] Self-Referred, Patient Unavailable Unavailab Atilio Raphael MD Unavailable [phone] Ricardo Stewart DO Unavailable Encounter Details Date Type Department Care Team (Late st Contact Info) Description 02/21/2018 Ancillary Orders Virtual Department [address] [place] [address] Ricardo Stewart DO [address] [facility] [place] [address] [email or web address] Abdominal pain, unspecified abdominal location Social History Tobacco Use Types Packs/Day Years [...] as of this encounter Visit Diagnoses Diagnosis Abdominal pain, unspecified abdominal location documented in this encounter Additional Health Concerns Infection Onset Date Last Indicated Resolved Time CoV-Risk Comment:Per note documentation 02/12/2020 02/17/2020 0 10:23 AM EST documented as of this encounter Care Teams Registry Rn Relationship Specialty Start Date End Date Ricardo Stewart DO [email or web address] PCP - General 01/19/17 Self-Referred, Patient 05/27/18 Atilio Louie MD [address] [place] [address] [address] [place] [address] [email or web address] Urology 05/27/18 Ricardo Stewart DO [address] [place] [address] [email or web address] Insurance Assigned Provider 08/09/19 documented as of this encounter Additional Source Comments The information contained in this document represents components of the legal health record. It is not the complete legal health record.[facility]
--- OUTSIDE RECORDS SUMMARY | 2024-12-12 14:16 | XMS_ITS | Encounter Summary ---
Author Organization [facility] Address [address] [place] [address] Phone Care Team Providers Care Sheep Farm Worker Name Role Phone Ricardo Stewart Primary Care Provider [phone] Self-Referred, Patient Unavailable Unavailab Atilio Raphael MD Unavailable [phone] Ricardo Stewart DO Unavailable Encounter Details Date Type Department Care Team (Latest Contact Info) Description 09/02/2017 Transcribe Orders [facility] Laboratory [address] [address] Simon Bacon MD [address] [place] [address], [address] [address] [email or web address] Microscopic hematuria (Primary Dx) Social History Tobacco Use Types [...] documented as of this encounter Results * Creatinine/eGFR (09/02/2017 2:54 PM EDT) CREATININE 0.80 0.5 - 1.5 mg/dL [facility] EGFR 89 >59 mL/min/1.7 3m2 [facility] Comment:If patient is black, multiply result by 1.159. The eGFR calculation has changed from the MDRD equation to the CKD-EPI equation as of June 08, 2017. Blood 09/02/2017 2:54 PM EDT 09/02/2017 2:55 PM EDT Simon Bacon MD LAB BLOOD ORDERABLES Final Resu lt Performing Organization Address City/[facility]/ZIP Co de Phone Number [address] [address] * BUN (09/02/2017 2:54 PM EDT) BUN 19 6 - 19 mg/dL [facility] Blood 09/02/2017 2:54 PM EDT 09/02/2017 2:55 PM EDT Simon Bacon MD LAB BLOOD ORDERABLES Final Resu lt Performing Organization Address [facility] Co de Phone Number [address] [address] documented in this encounter Visit Diagnoses Diagnosis Microscopic hematuria- Primary documented in this encounter Additional Health Concerns Infection Onset Date Last Indicated Resolved Time CoV-Risk Comment:Per note documentation 02/12/2020 02/17/2020 0 10:23 AM EST documented as of this encounter Care Teams Sheep Farm Worker Relationship Specialty Start Date End Date Ricardo Stewart DO PCP - General 01/19/17 Self-Referred, Patient 05/27/18 Atilio Louie MD [address] [place] [address] [address] [place] [address] [email or web address] Urology 05/27/18 Ricardo Stewart DO [address] [place] [address] [email or web address] Insurance Assigned Provider 08/09/19 documented as of this encounter Additional Source Comments The information contained in this document represents components of the legal health record. It is not the complete legal health record.[facility]
--- OUTSIDE RECORDS SUMMARY | 2024-12-12 14:16 | XMS_ITS | Clinical Summary ---
Author Organization [facility] Address [address] [place] [address] Phone Care Team Providers Care Final Operations Technician Name Role Phone Ricardo Stewart DO Primary Care Provider [phone] Self-Referred, Patient Unavailable Unavailab Atilio Raphael MD Unavailable [phone] Allergies Active Allergy Reactions Criticality Noted Date Comments Adhesive Tape-Silicones Erythema High 02/22/2020 Specifically red dot electrodes use sensitive skin electrodes only pt gets severe rash/breakdown Bee Venom Protein (Honey Bee) Anaphylaxis High 10/28/2018 Canagliflozin Other (See Comments) Medium 2017 Yeast infection Levofloxacin Rash Low 05/04/2018 Issue was w/iv administration, has had po since w/no issue Atorvastatin Diarrhea Medium 10/14/2017 Mirtazapine Other (See Comments) Medium 07/26/2018 Lethargic, per patient Sulfa (Sulfonamide Antibiotics) Anaphylaxis High 05/29/2014 Medications rosuvastatin (CRESTOR) 10 MG tablet Take 10 mg by mouth daily. Active timolol (TIMOPTIC) 0.5 % ophthalmic solution Place 1 drop into each eye daily. Active aspirin 81 MG EC tablet Take 81 mg by mouth every other day. Active buPROPion (WELLBUTRIN XL) 150 MG ER 24 hr tablet Take 150 mg by mouth every morning. 8 Active insulin lispro (ADMELOG, HUMALOG) 100 unit/mL injection pen Inject under the skin 4 (four) times a day with meals and nightly. Sliding scale Active senna (SENOKOT) 8.6 mg tablet Take 1 tablet by mouth daily as needed for constipation. 30 tablet 0 Active Additional Information Patient not taking.Reported on 04/18/2020 docusate sodium (COLACE) 100 MG capsule Take 1 capsule (100 mg total) by mouth 2 (two) times a day as needed for constipation. Do not take this medication if having loose stools 30 capsule 0 Active Additional Information Patient not taking.Reported on 04/18/2020 tamsulosin (FLOMAX) 0.4 mg Cap Take 1 capsule (0.4 mg total) by mouth daily. 30 capsule 0 Active acetaminophen (TYLENOL) 500 MG tablet Take 1 tablet (500 mg total) by mouth every 6 (six) hours as needed for pain (specific location in comments) (mild pain). 0 0 Active insulin glargine (BASAGLAR KWIKPEN U-100 INSULIN) 100 unit/mL (3 mL) InPn injection pen Inject 60 Units under the skin every morning. Active sodium bicarbonate 650 mg tabletIndication s:Malignant neoplasm of overlapping sites of bladder Take 1 tablet (650 mg total) by mouth 2 (two) times a day. 180 tablet 3 2 Active Active Problems Problem Noted Date Diagnosed Date [...] Gallbladder mass Overview (03/05/2020): Noted on adm -02/24/2020: 4 mm echogenic focus along the gallbladder [...] Snoring Overview (03/06/2020): no prior sleep study Resolved Problems Problem Noted Date Diagnosed Date [...] line given renal function Cystitis 07/26/2018 04/09/2020 Immunizations Immunization Administration Dates Next Due COVID-19 (Pre-01/25) Paul Vaccine, rS-Ad26, PF 06/19/2020 Pneumococcal conjugate PCV13 02/18/2020( Deferred: Patient Refused),03/10/2019(Deferred: Patient Refused) Family History Medical History Relation Comments Cancer Father 2 Relation Status Comments Father 1 Father 2 Social History Tobacco Use Types Packs/Day Years Used Date Smoking Tobacco: Former Cigarettes 2 59 0 10/10/1957 - 10/10/2017 Smokeless Tobacco: Never Tobacco Cessation:Counseling Given: No Alcohol Use Standard Drinks/Week Comments Not Currently [...] Orientation Straight 12/27/2017 2: 28 PM EDT Last Filed Vital Signs Vital Sign Reading Time Taken Comments Blood Pressure 118/68 04/18/2020 9:15 AM EST Pulse 66 04/18/2020 9:15 AM EST Temperature 36.3 C (97.4 F) 04/18/2020 9:15 AM EST Respiratory Rate 16 04/18/2020 9:15 AM EST Oxygen Saturation 98% 04/18/2020 9:15 AM EST Inhaled Oxygen Concentration 20.6% 03/07/2020 2 :40 PM EST Weight 108.9 kg (240 lb) 04/09/2020 4:55 PM EST Height 195.6 cm (6' 5 ) 04/09/2020 4:55 PM EST Body Mass Index 28.46 04/09/2020 4:55 PM EST Plan of Treatment Health Maintenance Due Date Last Done Comments Adult Td,Tdap Booster 1944 BLOOD PRESSURE 1944 DEPRESSION SCREENING 1956 SMOKING Hx and SMOKELESS TOBACCO SCREENING 1957 PNEUMOCOCCAL VACCINES (50+ years) (1 of 2 - PCV) 12/05/1963 ZOSTER VACCINES (1 of 2) 12/05/1963 DIABETIC EYE EXAM 12/27/2017 RSV VACCINE (1 - 1-dose 75+ series) 12/05/2019 HEMOGLOBIN A1C 08/18/2022 02/18/2022, 02/03, 11/24/2021, Additional history exists INFLUENZA VACCINE (#1) 2024 COVID-19 VACCINE (2 - season) 2024 06/19/2020, 06/19/2020 HEPATITIS A VACCINES Aged Out No long er eligible based on patient's age to complete this topic HIB VACCINES Aged Out No longer eligi ble based on patient's age to complete this topic MENINGOCOCCAL VACCINES (ACWY) Aged Out No longer eligible based on patient's age to complete this topic MENINGOCOCCAL VACCINES (B) Aged Out N o longer eligible based on patient's age to complete this topic Medical Devices Implanted Type Area Director Nurses' Registry Device Identifier Shelf Expiration Date Model / Serial / Lot Kit Stent [id number] Ureteral Lubri Flex Open Tip Tecoflex - [id number] Implanted:Qty: 1 on 08/01/2018 by Atilio Louie MD at [facility] STANDARD OLYMP[employer] JOE 07/16/2022 [id number] / / [id number] Kit Stent [id number] Ureteral Lubri Flex Open Tip Tecoflex - [id number] Implanted:Qty: 1 on 08/01/2018 by Atilio Louie MD at [facility] STANDARD OLYMP[employer] JOE 07/16/2022 [id number] / / [id number] Stent Diversion 7fr 90cm X2 Ureteral Single J Guidewire Ptfe .028 120cm Silicone - [id number] Implanted:Qty: 1 on 03/09/2019 by Atilio Louie MD at [facility] Ureteral Stent Right: Ureter OLYMPUS JOE 10/18/2023 [id number] / / [id number] Stent Diversion 7fr 90cm X2 Ureteral Single J Guidewire Ptfe .028 120cm Silicone - [id number] Implanted:Qty: 1 on 03/09/2019 by Atilio Louie MD at [facility] Ureteral Stent Left: Ureter OLYMPUS JOE 10/18/2023 [id number] / / [id number] Stent Urological 7fr 30cm Double Pigtail Taper Tip Threaded Hydroplus Coated Percuflex Radiopaque Y - Sna Implanted:Qty: 1 on 03/07/2020 by Atilio Louie MD at [facility] Ureteral Stent Left: Ureter [employer] 08/16/2021 [id number] / NA / [id number] Stent Ureteral 6fr 22 To 30cm Stretch Coated Tara - [id number] Implanted:Qty: 1 on 05/04/2018 by Simon Bacon MD at [facility] Right: Ureter [employer] 12/14/2020 [id number] / / [id number] Stent Ureteral 6fr 22 To 30cm Stretch Coated Tara - [id number] Implanted:Qty: 1 on 05/04/2018 by Simon Bacon MD at [facility] Left: Ureter [employer] 12/14/2020 [id number] / / [id number] Clip Hemostasis Resolution 360 Lf Nonsterile 2.8mm Channel 360deg 235cm Bx/20ea - Discontinued Per [facility] - [id number] Implanted:Qty: 1 on 05/31/2018 by Supa Dotson MD at [facility] [employer] [id number] / / Description:Right colon clip Procedures Procedure Name Priority Date/Time Associated Diagnosis Comments HEMOGLOBIN A1C Routine 02/18/2020 8:16 AM EST from Last 3 Months or Most Recently Relevant to Health Maintenance Results * (ABNORMAL) Hemoglobin A1c (02/18/2020 8:16 AM EST) HEMOGLOBIN A1C 8.0(H) 4.2 - 5.6 % [facility] Comment: HbA1c levels 5.7-6.4% represent pre-diabetes, indicating impaired glucose control and an increased risk of developing diabetes. The diagnostic HbA1c level for diabetes is 6.5% or greater. HbA1c levels <4.2% may indicate a hemoglobinopathy or anemia, and an alternative method is recommended to monitor glucose control. CALC MEAN BLD GLUC 183 mg/dL [facility] Comment: The Calculated Mean Blood Glucose (CMBG) represents the estimated average glucose calculated from the measured hemoglobin A1c (HbA1c). There is no established normal range for the CMBG, however a 5.6% HbA1c (upper limit of normal) represents a CMBG of 114 mg/dL. 02/18/2020 8:16 AM EST 02/18/2020 8:49 AM EST Comment:#MISS us Lazara Khanna MD, MPH LAB BLOOD ORDERABLES Lisandra younger Result Performing Organization Address City/State/[facility] Co de Phone Number [facility] [address] [place], [place] [phone] from Last 3 Months or Most Recently Relevant to Health Maintenance Insurance [employer] POS [facility] MEDICARE PREFERRED HMO REPLACEMENT [facility] [place]REFERRED HMO REPLACEMENT [facility] NAVIGATOR POS [facility] POS [facility] POS [place] MED[place] PREFERRED HMO REPLACEMENT [facility] POS [place] MED[place] PREFERRED HMO REPLACEMENT [facility] [place] [facility] PREFERRED HMO REPLACEMENT [facility] POS [place] MED[place] PREFERRED HMO REPLACEMENT Advance Directives For more information, please contact: [phone] (9AM - 5PM [facility], Wednesday-Wednesday) Documents on File Type Date Recorded Patient Slasher Runner Expl anation Healthcare Proxy 03/09/2019 * Full Code (Latest Code Status on File) Date Activated Date Inactivated Comments 02/17/2020 5:14 AM 03/07/2020 8:13 AM Question Answer Comments Code Status Confirmed With: Patient * Full Code (Presumed) Date Activated Date Inactivated Comments 03/09/2019 5:11 PM 03/18/2019 4:02 PM * Full Code (Presumed) Date Activated Date Inactivated Comments 03/09/2019 6:09 AM 03/09/2019 5:11 PM * Full Code (Presumed) Date Activated Date Inactivated Comments 07/26/2018 2:30 PM 08/02/2018 7:49 PM Healthcare Agents on File Name Relationship Healthcare Agent Relationship Communication Carmencita Estrella Spouse Other (no pro xy form on file) Care Teams Final Operations Technician Relationship Specialty Start Date End Date Ricardo Stewart DO PCP - General 01/19/17 Self-Referred, Patient 05/27/18 Atilio Louie MD [address] [place] [address] [address] [place] [address] [email or web address] Urology 05/27/18 Additional Source Comments The information contained in this document represents components of the legal health record. It is not the complete legal health record.[facility]
--- OUTSIDE RECORDS SUMMARY | 2024-12-12 14:16 | XMS_ITS | Encounter Summary ---
Author Organization [facility] Address [address] [place] [address] Phone Care Team Providers Care Gas Plant Worker Name Role Phone Terry Ricardo Nieto DO Primary Care Provider [phone] Self-Referred, Patient Unavailable Unavailab Atilio Raphael MD Unavailable [phone] Ricardo Stewart DO Unavailable Encounter Details Date Type Department Care Team (Late st Contact Info) Description 12/01/2017 Procedure Pass [place] Admitting Dept - Virtual Department [address] [place] [address] Social History Tobacco Use Types Packs/Day Years [...] documented as of this encounter Care Teams Gas Plant Worker Relationship Specialty Start Date End Date Ricardo Stewart DO [email or web address] PCP - General 01/19/17 Self-Referred, Patient 05/27/18 Atilio Louie MD [address] [place] [address] [address] [place] [address] [email or web address] Urology 05/27/18 Ricardo Stewart DO [address] [place] [address] [email or web address] Insurance Assigned Provider 08/09/19 documented as of this encounter Additional Source Comments The information contained in this document represents components of the legal health record. It is not the complete legal health record.[facility]
--- OUTSIDE RECORDS SUMMARY | 2024-12-12 14:16 | XMS_ITS | Encounter Summary ---
Author Organization [facility] Address [address] [place] [address] Phone Care Team Providers Care Powder Line Repairer Name Role Phone Ricardo Stewart DO Primary Care Provider [phone] Self-Referred, Patient Unavailable Unavailab Atilio Raphael MD Unavailable [phone] Ricardo Stewart DO Unavailable Encounter Details Date Type Department Care Team (Late st Contact Info) Description 09/13/2017 Procedure Pass [facility], Ct Scan - [address] [address] Social History Tobacco Use Types Packs/Day Years [...] documented as of this encounter Care Teams Powder Line Repairer Relationship Specialty Start Date End Date Ricardo Stewart DO PCP - General 01/19/17 Self-Referred, Patient 05/27/18 Atilio Louie MD [address] [place] [address] [address] [place] [address] [email or web address] Urology 05/27/18 Ricardo Stewart DO [address] [place] [id number] [email or web address] Insurance Assigned Provider 08/09/19 documented as of this encounter Additional Source Comments The information contained in this document represents components of the legal health record. It is not the complete legal health record.[facility]
--- OUTSIDE RECORDS SUMMARY | 2024-12-12 14:16 | XMS_ITS | Encounter Summary ---
Author Organization [facility] Address [address] [place] [address] Phone Care Team Providers Care Physics And Astronomy Professor Name Role Phone Terry Ricardo Nieto DO Primary Care Provider [phone] Self-Referred, Patient Unavailable Unavailab le Atilio Louie MD Unavailable [phone] Ricardo Stewart DO Unavailable Reason for Referral * MRI/CAT Scan - Closed Specialty Diagnoses / Procedures Referred By Shobha martini Referred To Contact Procedures MRI Abdomen Outside (No Interpretation) Atiloi Louie MD Phone: tel: fax: [email or web address] Referral ID Status Reason Start Date Expiration Date Visits Re quested Visits Authorized [id number] Closed 10/25/2018 10/25/2019 1 1 Encounter Details Date Type Department Care Team (Late st Contact Info) Description 10/25/2018 Transcribe Orders [facility] [address] [place] [address] [place] Allen [address] [place] [address] [email or web address] Social History Tobacco Use Types Packs/Day Years [...] this encounter Results * MRI Abdomen Outside (No Interpretation) (10/25/2018 7:27 AM EDT) Narrative TAMI - 10/25/2018 7:27 AM EDT This study is for PACS storage only and not for interpretation. us Atilio Louie MD IMG OUTSIDE IMAGING W/OUT INT ERPRETATION Final Result [facility] documented in this encounter Visit Diagnoses Not on filedocumented in this encounter Additional Health Concerns Infection Onset Date Last Indicated Resolved Time CoV-Risk Comment:Per note documentation 02/12/2020 02/17/2020 0 10:23 AM EST documented as of this encounter Care Teams Physics And Astronomy Professor Relationship Specialty Start Date End Date Ricardo tSewart DO [email or web address] PCP - General 01/19/17 Self-Referred, Patient 05/27/18 Atilio Louie MD [address] [place] [address] [address] [place] [address] [email or web address] Urology 05/27/18 Ricardo Stewart DO [address] [place] [address] [email or web address] Insurance Assigned Provider 08/09/19 documented as of this encounter Additional Source Comments The information contained in this document represents components of the legal health record. It is not the complete legal health record.[facility]
--- OUTSIDE RECORDS SUMMARY | 2024-12-12 14:16 | XMS_ITS | Encounter Summary ---
Author Organization [facility] Address [address] [place] [address] Phone Care Team Providers Care Registrar Museum Name Role Phone Terry Ricardo Nieto DO Primary Care Provider [phone] Self-Referred, Patient Unavailable Unavailab Atilio Raphael MD Unavailable [phone] Ricardo Stewart DO Unavailable Encounter Details Date Type Department Care Team (Late st Contact Info) Description 10/25/2018 Procedure Pass [facility] [address] [place] [address] Social History Tobacco Use Types Packs/Day Years [...] documented as of this encounter Care Teams Registrar Museum Relationship Specialty Start Date End Date Ricardo Stewart DO [email or web address] PCP - General 01/19/17 Self-Referred, Patient 05/27/18 Atilio Louie MD [address] [place] [address] [address] [place] [address] [email or web address] Urology 05/27/18 Ricardo Stewart DO [address] [place] [address] [email or web address] Insurance Assigned Provider 08/09/19 documented as of this encounter Additional Source Comments The information contained in this document represents components of the legal health record. It is not the complete legal health record.[facility]
--- OUTSIDE RECORDS SUMMARY | 2024-12-12 14:16 | XMS_ITS | Encounter Summary ---
Author Organization [facility] Address [address] [place] [address] Phone Care Team Providers Care Public Information Specialist Name Role Phone Ricardo Stewart DO Primary Care Provider [phone] Self-Referred, Patient Unavailable Unavailab Atilio Raphael MD Unavailable [phone] Ricardo Stewart DO Unavailable Reason for Referral * MRI/CAT Scan - Closed Specialty Diagnoses / Procedures Referred By Shobha martini Referred To Contact Radiology Diagnoses Asymptomatic microscopic hematuria Procedures CT Abdomen/Pelvis Simon Bacon MD Phone: tel: fax: [email or web address]:[email or web address] Referral ID Status Reason Start Date Expiration Date Visits Re quested Visits Authorized [id number] Closed 09/06/2017 11/05/2017 1 1 Encounter Details Date Type Department Care Team (Latest Contact Info) Description 09/13/2017 Ancillary Orders Virtual Department [address] [place] [id number] Simon Bacon MD [facility], [address] [id number] [email or web address] Asymptomatic microscopic hematuria Social History Tobacco Use Types Packs/Day Years [...] this encounter Results * CT ABDOMEN/PELVIS WITH AND WITHOUT CONTRAST (09/15/2017 2:03 PM EDT) Anatomical Region Laterality Modality Abdomen, Pelvis Computed Tomogra phy 09/15/2017 1:53 PM EDT Impressions 09/15/2017 2:25 PM EDT 1. Mild asymmetric right bladder wall thickening which may be inflammatory or neoplastic. 2. Bilateral non-obstructive nephrolithiasis and bilateral Bosniak 1 renal cysts. 3. Mild prostatomegaly. 4. Moderate hepatic steatosis. 5. Severe sigmoid colon diverticulosis without diverticulitis. 6. Additional findings as outlined. TOTAL CTDIvol: 57.6 mGy POS - [id number] Narrative 09/15/2017 2:25 PM EDT COMPARISON:No prior CT abdomen pelvis for comparison. CT chest 01/13/2016. TECHNIQUE: Water is used as an oral contrast agent. Precontrast views are obtained from the kidneys through the inferior pubic rami. Intravenous contrast is then administered and scanning obtained at ninety seconds from the dome of the liver to the iliac crests. Delayed scanning is then obtained from above the kidneys through the inferior pubic rami. Multiplanar reformatted images obtained. Automated exposure control utilized. CT ABDOMEN AND PELVIS UROGRAM FINDINGS: Lungs/heart: Heart is normal in size. No pericardial effusion. Stable mild posterior lower lobe base pleural thickening and calcification which may be due to asbestosis related pleural disease. Dependent atelectasis. Spleen: Normal. Liver: Moderate diffuse low-attenuation consistent with steatosis which is unchanged. Gallbladder/biliary tree: Gallbladder is contracted. No biliary dilatation. Pancreas: Mild diffuse atrophy. Adrenal glands: Stable bilateral nodularity measuring less than a centimeter with Hounsfield units measuring less than 10 indicative of small benign adenomas. Vasculature: Mild diffuse arterial calcified plaque. Mildly ectatic tortuous common iliac arteries. No AAA or acute findings. Genitourinary: Kidneys are normal in size. Punctate non-obstructing right upper renal pole calculus and 3 mm non- obstructing left lower renal pole calculus. No hydronephrosis. Normal renal enhancement and contrast excretion. No solid renal masses. There are multiple bilateral simple cysts with the largest in the right kidney measuring 3.9 cm in lateral lower interpolar region and in the left kidney measuring 5 cm in the lateral lower interpolar region. There are bilateral too small to characterize hypodensities as well which also likely represent incidental benign cysts. No suspicious filling defects within the opacified urinary tract. Mild prostatomegaly. Asymmetric lateral right bladder wall thickening measuring up to 1.2 cm. No mass or polyp identified. Gastrointestinal tract: Stomach and small bowel are normal. Mild descending and severe sigmoid colon diverticulosis. No diverticulitis. Peritoneum/retroperitoneum: No lymphadenopathy, ascites or fluid collections. Musculoskeletal: No abdominal wall hernias. Osteopenia. Severe L4-5 and L5-S1 degenerative disc disease and facet arthropathy. Canal stenosis at L3-4 and L4-5 and severe bilateral neural foraminal stenosis at L4-5 and L5-S1. Moderate bilateral hip osteoarthritis. No destructive lytic or blastic bone lesions. Procedure Note Irwin Armendariz MD - 09/15/2017 COMPARISON:No prior CT abdomen pelvis for comparison. CT chest01/13/2016. TECHNIQUE: Water is used as an oral contrast agent. Precontrast views areobtained from the kidneys through the inferior pubic rami. Intravenouscontrast is then administered and scanning obtained at ninety seconds fromthe dome of the liver to the iliac crests. Delayed scanning is thenobtained from above the kidneys through the inferior pubic rami.Multiplanar reformatted images obtained. Automated exposure controlutilized. CT ABDOMEN AND PELVIS UROGRAM FINDINGS: Lungs/heart: Heart is normal in size. No pericardial effusion. Stablemild posterior lower lobe base pleural thickening and calcification whichmay be due to asbestosis related pleural disease. Dependentatelectasis. Spleen: Normal. Liver: Moderate diffuse low-attenuation consistent with steatosis which isunchanged. Gallbladder/biliary tree: Gallbladder is contracted. No biliarydilatation. Pancreas: Mild diffuse atrophy. Adrenal glands: Stable bilateral nodularity measuring less than acentimeter with Hounsfield units measuring less than 10 indicative ofsmall benign adenomas. Vasculature: Mild diffuse arterial calcified plaque. Mildly ectatictortuous common iliac arteries. No AAA or acute findings. Genitourinary: Kidneys are normal in size. Punctate non-obstructingright upper renal pole calculus and 3 mm non-obstructing left lower renalpole calculus. No hydronephrosis. Normal renal enhancement and contrastexcretion. No solid renal masses. There are multiple bilateral simplecysts with the largest in the right kidney measuring 3.9 cm in laterallower interpolar region and in the left kidney measuring 5 cm in thelateral lower interpolar region. There are bilateral too small tocharacterize hypodensities as well which also likely represent incidentalbenign cysts. No suspicious filling defects within the opacified urinarytract. Mild prostatomegaly. Asymmetric lateral right bladder wallthickening measuring up to 1.2 cm. No mass or polyp identified. Gastrointestinal tract: Stomach and small bowel are normal. Milddescending and severe sigmoid colon diverticulosis. No diverticulitis. Peritoneum/retroperitoneum: No lymphadenopathy, ascites or fluidcollections. Musculoskeletal: No abdominal wall hernias. Osteopenia. Severe L4-5 andL5-S1 degenerative disc disease and facet arthropathy. Canal stenosis atL3-4 and L4-5 and severe bilateral neural foraminal stenosis at L4-5 andL5-S1. Moderate bilateral hip osteoarthritis. No destructive lytic orblastic bone lesions. IMPRESSION: 1. Mild asymmetric right bladder wall thickening which may beinflammatory or neoplastic. 2. Bilateral non-obstructive nephrolithiasis and bilateral Bosniak 1renal cysts. 3. Mild prostatomegaly. 4. Moderate hepatic steatosis. 5. Severe sigmoid colon diverticulosis without diverticulitis. 6. Additional findings as outlined. TOTAL CTDIvol: 57.6 mGy POS - [id number] Simon Bacon MD IMG CT ABD/PELVIS Final Result documented in this encounter Visit Diagnoses Diagnosis Asymptomatic microscopic hematuria Asymptomatic microscopic hematuria documented in this encounter Additional Health Concerns Infection Onset Date Last Indicated Resolved Time CoV-Risk Comment:Per note documentation 02/12/2020 02/17/2020 0 10:23 AM EST documented as of this encounter Care Teams Public Information Specialist Relationship Specialty Start Date End Date Ricardo Stewart DO [email or web address] PCP - General 01/19/17 Self-Referred, Patient 05/27/18 Atilio Louie MD [address] [place] [address] [address] [place] [address] [email or web address] Urology 05/27/18 Ricardo Stewart DO [address] [place] [address] [email or web address] Insurance Assigned Provider 08/09/19 documented as of this encounter Additional Source Comments The information contained in this document represents components of the legal health record. It is not the complete legal health record.[facility]
--- OUTSIDE RECORDS SUMMARY | 2024-12-12 14:16 | XMS_ITS | Encounter Summary ---
Author Organization [facility] Address [address] [place] [phone] Phone Care Team Providers Care Inbound Call Center Representative Name Role Phone Ricardo Stewart Primary Care Provider [phone] Self-Referred, Patient Unavailable Unavailab Atilio Raphael MD Unavailable [phone] Ricardo Stewart DO Unavailable Encounter Details Date Type Department Care Team (Late st Contact Info) Description 07/09/2017 Ancillary Orders Virtual Department [address] [place] [address] Nimco King PA-C [address] [place]. [address] [place] [address] Tobacco user Social History Tobacco Use Types Packs/Day Years [...] documented as of this encounter Results * US Abdominal Aortic Screening (07/19/2017 1:32 PM EDT) Anatomical Region Laterality Modality Abdomen Ultrasound 07/19/2017 1:39 PM EDT Impressions 07/19/2017 1:40 PM EDT No evidence of abdominal aortic aneurysm. POS - [id number] Narrative 07/19/2017 1:40 PM EDT HISTORY: History of tobacco abuse. COMPARISON: None. FINDINGS: A screening study of the abdominal aorta performed. The abdominal aorta is normal in course and caliber. Common iliac arteries are normal in caliber. Procedure Note Supa Becerra MD - 07/19/2017 HISTORY: History of tobacco abuse. COMPARISON: None. FINDINGS: A screening study of the abdominal aorta performed. The abdominal aorta is normal in course and caliber. Common iliacarteries are normal in caliber. IMPRESSION: No evidence of abdominal aortic aneurysm. POS - [id number] Nimco Fernando FRANCES IMG US ABDOMEN Final Result documented in this encounter Visit Diagnoses Diagnosis Tobacco user Tobacco use disorder Tobacco user Tobacco use disorder documented in this encounter Additional Health Concerns Infection Onset Date Last Indicated Resolved Time CoV-Risk Comment:Per note documentation 02/12/2020 02/17/2020 0 10:23 AM EST documented as of this encounter Care Teams Inbound Call Center Representative Relationship Specialty Start Date End Date Ricardo Stewart DO [email or web address] PCP - General 01/19/17 Self-Referred, Patient 05/27/18 Atilio Louie MD [address] [place] [address] [address] [place] [address] [email or web address] Urology 05/27/18 Ricardo Stewart DO [address] [place] [address] [email or web address] Insurance Assigned Provider 08/09/19 documented as of this encounter Additional Source Comments The information contained in this document represents components of the legal health record. It is not the complete legal health record.[facility]
--- OUTSIDE RECORDS SUMMARY | 2024-12-12 14:16 | XMS_ITS | Encounter Summary ---
Author Organization [facility] Address [address] [place] [phone] Phone Care Team Providers Care Stacker And Sorter Operator Name Role Phone Terry Ricardo Nieto DO Primary Care Provider [phone] Self-Referred, Patient Unavailable Unavailab Atilio Raphael MD Unavailable [phone] Ricardo Stewart DO Unavailable Encounter Details Date Type Department Care Team (Late st Contact Info) Description 10/22/2017 Procedure Pass OR Admitting Dept - Virtual Department [address] [place] [address] Social History Tobacco Use Types Packs/Day Years [...] documented as of this encounter Care Teams Stacker And Sorter Operator Relationship Specialty Start Date End Date Ricardo Stewart DO [email or web address] PCP - General 01/19/17 Self-Referred, Patient 05/27/18 Atilio Louie MD [address] [place] [address] [address] [place] [address] [email or web address] Urology 05/27/18 Ricardo Stewart DO [address] [place] [id number] [email or web address] Insurance Assigned Provider 08/09/19 documented as of this encounter Additional Source Comments The information contained in this document represents components of the legal health record. It is not the complete legal health record.[facility]
== END 2024-12-12 11:42 | disposition home or self-care (01) ==
LOC: HO.MANLDS 11:41
PROVIDERS: Visit Provider Internal Medicine
DX: E11.9 Type 2 diabetes mellitus without complications (principal)
CPT/HCPCS: 36415; 83036

== ENCOUNTER 2025-03-13 11:22 | Outpatient (REF) | payer MEDICARE, SELFPAY ==
[2025-03-13 18:35] LABS: Alanine Aminotransferase 59 U/L (0-40); Albumin Level 4.2 g/dL (3.5-5.0); Alkaline Phosphatase 59 U/L (39-117); Anion Gap 10 (12-20); Aspartate Amino Transferase 47 U/L (5-37); Blood Urea Nitrogen 49 mg/dL (9-16); Calcium 9.2 mg/dL (8.4-10.2); Carbon Dioxide 26 mmol/L (22-29); Chloride 112 mmol/L (96-108); Cholesterol 114 mg/dL (<200); Estimated Glomerular Filt Rate 28; HDL Cholesterol 33 mg/dL (>40); Potassium 4.9 mmol/L (3.3-5.1); Sodium 143 mmol/L (135-145); Total Protein 6.5 g/dL (6.5-8.0); Triglycerides 159 mg/dL (<150)
== END 2025-03-13 11:23 | disposition home or self-care (01) ==
LOC: HO.MANLDS 11:22
PROVIDERS: Visit Provider Internal Medicine
DX: E11.9 Type 2 diabetes mellitus without complications (principal)
CPT/HCPCS: 36415; 80053; 80061; 83036